=== PATIENT | male | born 1945 | race Caucasian/White ===

== ENCOUNTER 2023-06-02 12:56 | Emergency (ER) | payer OTHER ==
[2023-06-02 13:03] VITALS: TEMP 97.6
[2023-06-02] MEDS ORDERED: Sodium Chloride 0.9% 1000 ML 1,000 ML ONE (13:11)
[2023-06-02] MEDS ORDERED: Sodium Chloride 0.9% 1000 ML 1,000 ML IV SCH (13:15)
[2023-06-02 13:50] LABS: Hematocrit 20.9 % (42-50); Hemoglobin 7.1 g/dL (12.5-18.0); Mean Cell Volume 126.7 fL (78-100); Mean Platelet Volume 9.5 fL (7.5-11.0); Platelet Count 313 x10^3/uL (150-450); Red Blood Count 1.65 x10^6/uL (4.1-5.6); White Blood Count 2.5 x10^3/uL (4.0-10.5)
--- NOTE | 2023-06-02 13:51 | ERPHSYRPT ---
- History of Present Illness Time Seen by Provider: 06/02/23 13:47 Source: patient Exam Limitations: no limitations Patient Subjective Stated Complaint: pt here weakness for about 3 weeks now, pt has a blood transfusion a week ago Triage Nursing Assessment: pt arrived per ambulance, alert, poor historian, yuhaaviatam, resp easy, skin w/d/p. left side weak from old stroke, has swelling to feet that is normal for him Physician History: Patient is 78-year-old male presents to our ED via EMS for evaluation of generalized weakness. Patient has been experiencing progressive weakness for the past 3 weeks. EMS reports that patient had a blood transfusion last week. However patient is a poor historian unable to elaborate regarding why he had a transfusion. We have no records of any previous visits to our hospital. However [facility] report [facility] Patient denies pain. No trauma no fever. No nausea vomiting or diaphoresis. No obvious dark stools. Patient lives with his . Patient's is currently not present help contribute to the HPI. Patient voices no other complaints or concerns at this time. Portions of this note were created with voice recognition technology. There may be grammatical, spelling, punctuation or sound alike errors Timing/Duration: week(s) Severity: moderate (2 to 3 weeks) Modifying Factors: Improves With: nothing Associated Symptoms: denies symptoms Allergies/Adverse Reactions: Beta-Blockers (Beta-Adrenergic Bloc Adverse Reaction (Verified 06/02/23 13:00) Home Medications: Unobtainable 06/02/23 [History] Hx Influenza Vaccination/Date Given: No Hx Pneumococcal Vaccination/Date Given: No Immunizations Up to Date: Yes Travel Risk - International Travel Have you traveled outside of the country in past 3 weeks: No - Coronavirus Screening Are you exhibiting any of the following symptoms?: No Close contact with a COVID-19 positive Pt in past 14-21 Days: No - Vaccine Status Have you recieved a Covid-19 vaccination: Yes [employer]: Moderna - Vaccination Dates Date of 2cond Vaccination (if applicable): 2020 - Review of Systems Constitutional: No Symptoms, No Fever, No Chills Eyes: No Symptoms Ears, Nose, & Throat: No Symptoms Respiratory: No Symptoms, No Cough, No Dyspnea Cardiac: No Symptoms, No Chest Pain, No Edema, No Syncope Abdominal/Gastrointestinal: No Symptoms, No Abdominal Pain, No Nausea, No Vomiting, No Diarrhea Genitourinary Symptoms: No Symptoms, No Dysuria Musculoskeletal: No Symptoms, No Back Pain, No Neck Pain Skin: No Symptoms, No Rash Neurological: No Symptoms, No Dizziness, No Focal Weakness, No Sensory Changes Psychological: No Symptoms Endocrine: No Symptoms Hematologic/Lymphatic: No Symptoms Immunological/Allergic: No Symptoms All Other Systems: Reviewed and Negative - Past Medical History Pertinent Past Medical History: Yes Neurological History: Stroke Cardiac History: High Cholesterol, Hypertension Endocrine Medical History: Diabetes Type II Other Medical History: blood disorder ,anemia,yuhaaviatam - Past Surgical History Past Surgical History: Yes - Social History Smoking Status: Former smoker Exposure to second hand smoke: No Drug Use: none Patient Lives Alone: No - Nursing Vital Signs Nursing Vital Signs: Initial Vital Signs Pulse Rate 84 06/02/23 13:00 Respiratory Rate 14 06/02/23 13:00 Blood Pressure 163/66 06/02/23 13:00 O2 Sat by Pulse Oximetry 97 06/02/23 13:00 Pain Scale Pain Intensity 0 - Physical Exam General Appearance: no apparent distress, alert Eye Exam: PERRL/EOMI, eyes nml inspection Ears, Nose, Throat Exam: normal ENT inspection, TMs normal, pharynx normal, moist mucous membranes Neck Exam: normal inspection, non-tender, supple, full range of motion Respiratory Exam: normal breath sounds, lungs clear, airway intact, No respiratory distress Cardiovascular Exam: regular rate/rhythm, normal heart sounds, normal peripheral pulses Gastrointestinal/Abdomen Exam: soft, normal bowel sounds, No tenderness, No mass Back Exam: normal inspection, normal range of motion, No CVA tenderness, No vertebral tenderness Extremity Exam: normal inspection, normal range of motion, pelvis stable Neurologic Exam: alert, oriented x 3, cooperative, normal mood/affect, nml cerebellar function, nml station & gait, sensation nml, No motor deficits Skin Exam: normal color, warm, dry, No rash Lymphatic Exam: No adenopathy SpO2 Interpretation: normal SpO2: 97 O2 Delivery: Room Air - Course Nursing assessment & vital signs reviewed: Yes EKG Interpreted by Me: RATE (86), Sinus Rhythm, 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) Ordered Tests: Active Orders 24 hr Category Date Time Status Care Program Resident STAT Care 06/02/23 13:03 Active EKG-ER Only STAT Care 06/02/23 13:01 Active IV Insertion STAT Care 06/02/23 13:01 Active Pulse Oximetry (ED) STAT Care 06/02/23 13:01 Active CBC W DIFF Stat Lab 06/02/23 13:01 Completed CMP Stat Lab 06/02/23 13:01 Completed Lactic Acid Stat Lab 06/02/23 13:17 Completed MAGNESIUM Stat Lab 06/02/23 13:01 Completed Manual Differential NC Stat Lab 06/02/23 13:01 Completed NT PRO BNPII Stat Lab 06/02/23 Completed TROPONIN Q4H Lab 06/02/23 13:15 Completed TROPONIN Q4H Lab 06/02/23 17:10 Completed TROPONIN Q4H Lab 06/02/23 21:15 Ordered UA W/RFX UR CULTURE Stat Lab 06/02/23 15:52 Completed Medication Summary Generic Name Dose Route Start Last Admin Trade Name Freq PRN Reason Stop Dose Admin Sodium Chloride 1,000 mls @ 100 mls/hr 06/02/23 13:15 06/02/23 13:13 Sodium Chloride 0.9% 1000 Ml IV 07/02/23 13:14 100 mls/hr .Q10H VIOLA Administration Lab/Rad Data: Laboratory Result Diagrams 06/02/23 13:01 06/02/23 13:01 Laboratory Results 06/02/23 06/02/23 06/02/23 Range/Units Unknown 17:43 17:10 WBC (4.0-10.5) x10^3/uL RBC (4.1-5.6) x10^6/uL Hgb (12.5-18.0) g/dL Hct (42-50) % MCV (78-100) fL MCH (26-32) pg MCHC (32-36) g/dL RDW (11.5-14.0) % Plt Count (150-450) x10^3/uL MPV (7.5-11.0) fL Segmented Neutrophils (36.-66.) % Lymphocytes (Manual) (24-44) % Monocytes (Manual) (0.0-12.0) % Eosinophils (Manual) (0.00-3.0) % Hypochromia Platelet Estimate (NORMAL) RBC Morphology Anisocytosis Sodium (137-145) mmol/L Potassium (3.5-5.1) mmol/L Chloride (98-107) mmol/L Carbon Dioxide (22-30) mmol/L Anion Gap (5-15) MEQ/L BUN (9-20) mg/dL Creatinine (0.66-1.25) mg/dL Estimated GFR ML/MIN Glucose (74-106) mg/dL Lactic Acid (0.4-2.0) Calcium (8.4-10.2) mg/dL Magnesium (1.6-2.3) mg/dL Total Bilirubin (0.2-1.3) mg/dL AST (17-59) U/L ALT (0-50) U/L Alkaline Phosphatase (38-126) U/L Troponin I < 0.012 (0.000-0.034) ng/mL NT-Pro-B Natriuret Pep 85.6 (<300) pg/mL Serum Total Protein (6.3-8.2) g/dL Albumin (3.5-5.0) g/dL Urine Color (Yellow) Urine Appearance (Clear) Urine pH (4.6-8.0) Ur Specific [place] (1.005-1.030) Urine Protein (Negative) Urine Glucose (UA) (Negative) mg/dL Urine Ketones (Negative) Urine Blood (Negative) Urine Nitrite (Negative) Urine Bilirubin (Negative) Urine Urobilinogen (0.2) mg/dL Ur Leukocyte Esterase (Negative) U Hyaline Cast (Auto) (0-2) /LPF Urine Microscopic RBC (0-5) /HPF Urine Microscopic WBC (0-5) /HPF Ur Epithelial Cells (None Seen) /HPF Urine Bacteria (None Seen) /HPF Urine Culture Reflexed (NO) Influenza Type A Ag NEGATIVE (NEGATIVE) Influenza Type B Ag NEGATIVE (NEGATIVE) RSV (PCR) NEGATIVE (NEGATIVE) SARS-CoV-2 (PCR) NEGATIVE (NEGATIVE) ABO Group Rh Factor Antibody Screen (NEGATIVE) Crossmatch (COMPATIBLE) 06/02/23 06/02/23 06/02/23 Range/Units 17:08 17:02 15:52 WBC (4.0-10.5) x10^3/uL RBC (4.1-5.6) x10^6/uL Hgb (12.5-18.0) g/dL Hct (42-50) % MCV (78-100) fL MCH (26-32) pg MCHC (32-36) g/dL RDW (11.5-14.0) % Plt Count (150-450) x10^3/uL MPV (7.5-11.0) fL Segmented Neutrophils (36.-66.) % Lymphocytes (Manual) (24-44) % Monocytes (Manual) (0.0-12.0) % Eosinophils (Manual) (0.00-3.0) % Hypochromia Platelet Estimate (NORMAL) RBC Morphology Anisocytosis Sodium (137-145) mmol/L Potassium (3.5-5.1) mmol/L Chloride (98-107) mmol/L Carbon Dioxide (22-30) mmol/L Anion Gap (5-15) MEQ/L BUN (9-20) mg/dL Creatinine (0.66-1.25) mg/dL Estimated GFR ML/MIN Glucose (74-106) mg/dL Lactic Acid (0.4-2.0) Calcium (8.4-10.2) mg/dL Magnesium (1.6-2.3) mg/dL Total Bilirubin (0.2-1.3) mg/dL AST (17-59) U/L ALT (0-50) U/L Alkaline Phosphatase (38-126) U/L Troponin I (0.000-0.034) ng/mL NT-Pro-B Natriuret Pep (<300) pg/mL Serum Total Protein (6.3-8.2) g/dL Albumin (3.5-5.0) g/dL Urine Color Yellow (Yellow) Urine Appearance Clear (Clear) Urine pH 5.5 (4.6-8.0) Ur Specific [place] <=1.005 (1.005-1.030) Urine Protein Negative (Negative) Urine Glucose (UA) Negative (Negative) mg/dL Urine Ketones Negative (Negative) Urine Blood Negative (Negative) Urine Nitrite Negative (Negative) Urine Bilirubin Negative (Negative) Urine Urobilinogen 0.2 (0.2) mg/dL Ur Leukocyte Esterase Negative (Negative) U Hyaline Cast (Auto) NONE SEEN (0-2) /LPF Urine Microscopic RBC 0-2 (0-5) /HPF Urine Microscopic WBC 0-2 (0-5) /HPF Ur Epithelial Cells None Seen (None Seen) /HPF Urine Bacteria None Seen (None Seen) /HPF Urine Culture Reflexed NO (NO) Influenza Type A Ag (NEGATIVE) Influenza Type B Ag (NEGATIVE) RSV (PCR) (NEGATIVE) SARS-CoV-2 (PCR) (NEGATIVE) ABO Group O Rh Factor POSITIVE Antibody Screen NEGATIVE (NEGATIVE) Crossmatch COMPATIBLE COMPATIBLE (COMPATIBLE) 06/02/23 06/02/23 06/02/23 Range/Units 13:17 13:15 13:01 WBC (4.0-10.5) x10^3/uL RBC (4.1-5.6) x10^6/uL Hgb (12.5-18.0) g/dL Hct (42-50) % MCV (78-100) fL MCH (26-32) pg MCHC (32-36) g/dL RDW (11.5-14.0) % Plt Count (150-450) x10^3/uL MPV (7.5-11.0) fL Segmented Neutrophils (36.-66.) % Lymphocytes (Manual) (24-44) % Monocytes (Manual) (0.0-12.0) % Eosinophils (Manual) (0.00-3.0) % Hypochromia Platelet Estimate (NORMAL) RBC Morphology Anisocytosis Sodium 130 L (137-145) mmol/L Potassium 3.8 (3.5-5.1) mmol/L Chloride 96 L (98-107) mmol/L Carbon Dioxide 23 (22-30) mmol/L Anion Gap 14.7 (5-15) MEQ/L BUN 25 H (9-20) mg/dL Creatinine 1.47 H (0.66-1.25) mg/dL Estimated GFR 49.2 ML/MIN Glucose 87 (74-106) mg/dL Lactic Acid 1.2 (0.4-2.0) Calcium 9.3 (8.4-10.2) mg/dL Magnesium 1.7 (1.6-2.3) mg/dL Total Bilirubin 0.40 (0.2-1.3) mg/dL AST 52 (17-59) U/L ALT 24 (0-50) U/L Alkaline Phosphatase 59 (38-126) U/L Troponin I < 0.012 (0.000-0.034) ng/mL NT-Pro-B Natriuret Pep (<300) pg/mL Serum Total Protein 7.7 (6.3-8.2) g/dL Albumin 3.8 (3.5-5.0) g/dL Urine Color (Yellow) Urine Appearance (Clear) Urine pH (4.6-8.0) Ur Specific [place] (1.005-1.030) Urine Protein (Negative) Urine Glucose (UA) (Negative) mg/dL Urine Ketones (Negative) Urine Blood (Negative) Urine Nitrite (Negative) Urine Bilirubin (Negative) Urine Urobilinogen (0.2) mg/dL Ur Leukocyte Esterase (Negative) U Hyaline Cast (Auto) (0-2) /LPF Urine Microscopic RBC (0-5) /HPF Urine Microscopic WBC (0-5) /HPF Ur Epithelial Cells (None Seen) /HPF Urine Bacteria (None Seen) /HPF Urine Culture Reflexed (NO) Influenza Type A Ag (NEGATIVE) Influenza Type B Ag (NEGATIVE) RSV (PCR) (NEGATIVE) SARS-CoV-2 (PCR) (NEGATIVE) ABO Group Rh Factor Antibody Screen (NEGATIVE) Crossmatch (COMPATIBLE) 06/02/23 Range/Units 13:01 WBC 2.5 L (4.0-10.5) x10^3/uL RBC 1.65 L (4.1-5.6) x10^6/uL Hgb 7.1 L (12.5-18.0) g/dL Hct 20.9 L (42-50) % MCV 126.7 H (78-100) fL MCH 43.0 H (26-32) pg MCHC 34.0 (32-36) g/dL RDW 23.0 H (11.5-14.0) % Plt Count 313 (150-450) x10^3/uL MPV 9.5 (7.5-11.0) fL Segmented Neutrophils 57 (36.-66.) % Lymphocytes (Manual) 37 (24-44) % Monocytes (Manual) 3 (0.0-12.0) % Eosinophils (Manual) 3 (0.00-3.0) % Hypochromia 2+ Platelet Estimate NORMAL (NORMAL) RBC Morphology ABNORMAL Anisocytosis 2+ Sodium (137-145) mmol/L Potassium (3.5-5.1) mmol/L Chloride (98-107) mmol/L Carbon Dioxide (22-30) mmol/L Anion Gap (5-15) MEQ/L BUN (9-20) mg/dL Creatinine (0.66-1.25) mg/dL Estimated GFR ML/MIN Glucose (74-106) mg/dL Lactic Acid (0.4-2.0) Calcium (8.4-10.2) mg/dL Magnesium (1.6-2.3) mg/dL Total Bilirubin (0.2-1.3) mg/dL AST (17-59) U/L ALT (0-50) U/L Alkaline Phosphatase (38-126) U/L Troponin I (0.000-0.034) ng/mL NT-Pro-B Natriuret Pep (<300) pg/mL Serum Total Protein (6.3-8.2) g/dL Albumin (3.5-5.0) g/dL Urine Color (Yellow) Urine Appearance (Clear) Urine pH (4.6-8.0) Ur Specific [place] (1.005-1.030) Urine Protein (Negative) Urine Glucose (UA) (Negative) mg/dL Urine Ketones (Negative) Urine Blood (Negative) Urine Nitrite (Negative) Urine Bilirubin (Negative) Urine Urobilinogen (0.2) mg/dL Ur Leukocyte Esterase (Negative) U Hyaline Cast (Auto) (0-2) /LPF Urine Microscopic RBC (0-5) /HPF Urine Microscopic WBC (0-5) /HPF Ur Epithelial Cells (None Seen) /HPF Urine Bacteria (None Seen) /HPF Urine Culture Reflexed (NO) Influenza Type A Ag (NEGATIVE) Influenza Type B Ag (NEGATIVE) RSV (PCR) (NEGATIVE) SARS-CoV-2 (PCR) (NEGATIVE) ABO Group Rh Factor Antibody Screen (NEGATIVE) Crossmatch (COMPATIBLE) - Progress Progress: improved Progress Note: 06/02/23 18:[address] Deluca accepting physician at [facility] patient accepted at 1836 PM 70-year-old male presents to our ED via EMS for evaluation of progressive weakness. Work-up reveals a significant anemia with hyponatremia. Patient denies pain. Physical exam otherwise negative. Testing ordered includes CBC CMP. CBC reveals a macrocytic anemia. CMP reveals hyponatremia and acute renal injury. Patient has chronic renal sufficiency however creatinine is higher than his baseline. COVID-negative. Blood cultures drawn and pending. Troponin negative. Urinalysis negative. Complexity of problems addressed is moderate acute complicated No critical care time Complex of data reviewed and analyzed is extensive Dr. Quintana independently reviewed and analyzed laboratory studies. Clinical correlation made between findings and history and physical exam. Plan of care discussed with accepting physician at [facility]. Risk of complication and or risk of morbidity/mortality of patient management is high. Patient requires higher level of care. Patient will be transferred to the [facility] as he is a [facility] patient. Plan of care discussed with patient. [facility] and treatment. Plan of care established for shared decision making. Portions of this note were created with voice recognition technology. There may be grammatical, spelling, punctuation or sound alike errors 06/02/23 20:59 06/02/23 21:00 Counseled pt/family regarding: lab results, diagnosis - Departure Departure Disposition: Observation Clinical Impression: Leukopenia, Macrocytic anemia, Hyponatremia, Acute renal injury, Generalized weakness, Pale skin Condition: Stable Critical Care Time: No Referrals: RICARDO BELTRAN [NON-STAFF Y W/O PRIVILEGES] - Follow up/PCP as directed Additional Instructions: Discharge/Care Plan CARMEN ROLDAN was seen on 06/02/23 in the Emergency Room. The patient was counseled regarding Diagnosis,Lab results, Imaging studies, need for follow up and when to return to the Emergency Room. Prescriptions given: Discharge Note I have spoken with the patient and/or caregivers. I have explained the patient's condition, diagnosis and treatment plan based on the information available to me at this time. I have answered the patient's and/or caregiver's questions and addressed any concerns. The patient and/or caregivers have as good understanding of the patient's diagnosis, condition and treatment plan as can be expected at this point. The vital signs have been stable. The patient's condition is stable and appropriate for discharge from the emergency department. The patient will pursue further outpatient evaluation with the primary care physician or other designated or consulting physician as outlined in the disch arge instructions. The patient and/or caregivers are agreeable to this plan of care and follow-up instructions have been explained in detail. The patient and/or caregivers have received these instruction. The patient/and or caregivers are aware that any significant change in condition or worsening of symptoms should prompt an immediate return to this or the closest emergency department or call 911.
[2023-06-02 13:55] LABS: ALBUMIN 3.8 g/dL (3.5-5.0); ANION GAP 14.7 MEQ/L (5-15); BILIRUBIN,TOTAL 0.4 mg/dL (0.2-1.3); Calcium 9.3 mg/dL (8.4-10.2); Creatinine 1 1.47 mg/dL (0.66-1.25); EST GLOMERULAR FILTRATION RATE 49.2 ML/MIN; MAGNESIUM 1.7 mg/dL (1.6-2.3); Potassium 3.8 mmol/L (3.5-5.1); Total Protein 7.7 g/dL (6.3-8.2)
[2023-06-02 14:34] LABS: Eosinophil 3 % (0.00-3.0); Lymphocytes 37 % (24-44); Monocyte 3 % (0.0-12.0); Neutrophils 57 % (36.-66.); Total Cells Counted 100
[2023-06-02 14:35] LABS: ANISOCYTOSIS 2+; Hypochromia 2+; Platelet Estimate NORMAL (NORMAL)
[2023-06-02 16:16] LABS: Appearance Clear (Clear); Bacteria None Seen /HPF (None Seen); Bilirubin Negative (Negative); Blood Negative (Negative); Epithelial Cells None Seen /HPF (None Seen); Glucose, Urine Negative (Negative); Hyaline Casts NONE SEEN /LPF (0-2); Ketones Negative (Negative); Leukocyte Esterase Negative (Negative); Nitrite Negative (Negative); Ph 5.5 (4.6-8.0); Protein,Urine Dip Negative (Negative); RBC 0-2 /HPF (0-5); Specific Gravity <=1.005 (1.005-1.030); Urobilinogen 0.2 mg/dL (0.2); WBC 0-2 /HPF (0-5)
[2023-06-02 16:17] LABS: ADD URINE CULTURE? NO (NO)
[2023-06-02 18:25] LABS: INFLUENZA A NEGATIVE (NEGATIVE); INFLUENZA B NEGATIVE (NEGATIVE); RESPIRATORY SYNCTIAL VIRUS NEGATIVE (NEGATIVE); SARS-CoV-2 Xpert Express NEGATIVE (NEGATIVE)
[2023-06-02 18:56] LABS: ABO TYPING O; Antibody Screen NEGATIVE (NEGATIVE); RH TYPING POSITIVE
[2023-06-02 18:57] LABS: CROSS MATCH (PRBC) COMPATIBLE (COMPATIBLE)
[2023-06-02 19:09] VITALS: BP 183/84; PULSE 99; RESP 20
[2023-06-02 21:05] VITALS: O2SAT 97
== END 2023-06-02 21:18 | disposition short-term general hospital (02) ==
LOC: ED 12:56
DX: D72.819 Decreased white blood cell count, unspecified (principal); D53.9 Nutritional anemia, unspecified; E87.1 Hypo-osmolality and hyponatremia; N17.9 Acute kidney failure, unspecified; R53.1 Weakness; R23.1 Pallor; E78.5 Hyperlipidemia, unspecified; I10 Essential (primary) hypertension; E11.9 Type 2 diabetes mellitus without complications
CPT/HCPCS: 0241U; 36415; 80053; 81001; 83605; 83735; 83880; 84484; 85025; 86850; 86900; 86901; 86922; 93005; 93041; 94760; 99284

== ENCOUNTER 2024-03-28 10:43 | Day surgery (SDC) | payer OTHER ==
--- NOTE | 2024-03-28 08:41 | HP ---
DATE OF SURGERY: 03/28/2024 HISTORY OF PRESENT ILLNESS: The patient is a 78-year-old had abnormal thickened esophagus on CT scan. He denies any reflux. No recent upper endoscopy. PAST MEDICAL HISTORY: Hypertension, glaucoma, constipation, diabetes type II, anemia, PAST SURGICAL HISTORY: MEDICATIONS: Timolol, MiraLAX, metformin, hydroxyurea, glipizide, gabapentin, folic acid. ALLERGIES: BETA-BLOCKERS. FAMILY HISTORY: Heart disease. SOCIAL HISTORY: No smoking or alcohol abuse. REVIEW OF SYSTEMS: Twelve systems reviewed. No chest pain or palpitations. Other systems negative or noncontributory as above and per preadmission questionnaire. PHYSICAL EXAMINATION: Height 6 feet. BMI 29.87. GENERAL: No acute distress. HEENT: Sclerae nonicteric. EOMI. Oral mucous membranes moist. NECK: No JVD. CHEST: Equal excursion, nonlabored breathing. CVS: Regular rate and rhythm. ABDOMEN: Soft. No peritoneal signs. EXTREMITIES: No significant edema. NEURO: Alert. He did show up in a motorized wheelchair. PSYCH: Appropriate mood and affect. SKIN: Dry. IMPRESSION: Abnormal imaging of esophagus on CT, I feel it is thickening. I feel the patient is in need of EGD possible biopsy. Risks and benefits explained in detail but not limited to. Risk of bleeding or infection, risk of bowel injury or perforation possibly requiring further procedure, risk of missed or nondiagnosis or incomplete exam, possibly requiring barium swallow, other studies or procedures. General risk of anesthesia or sedation, risk of bowel prep but not limited to. Will proceed with EGD possible biopsy as an outpatient under MAC anesthesia. Otherwise, continue medications for anemia, hypertension and diabetes. EGD possible biopsy as an outpatient.
[2024-03-28] MEDS: Lactated Ringers 1,000 ML IV SCH (11:16)
[2024-03-28 11:33] VITALS: RESP 18
[2024-03-28 11:33] LABS: ANION GAP 13.3 MEQ/L (5-15); Calcium 9.6 mg/dL (8.4-10.2); Creatinine 1 1.27 mg/dL (0.66-1.25); EST GLOMERULAR FILTRATION RATE 57.8 ML/MIN
[2024-03-28 11:38] LABS: Potassium 5.4 mmol/L (3.5-5.1)
[2024-03-28] MEDS ORDERED: DIPRIVAN 200 MG/20 ML IV ONE (12:13)
[2024-03-28 13:15] VITALS: BP 157/77; PULSE 95; TEMP 96.8; O2SAT 94
--- NOTE | 2024-03-29 08:06 | OP ---
SURGERY DATE/TIME: 03/28/2024 1215 PREOPERATIVE DIAGNOSIS: History of abnormal thickening of esophagus on CT scan. POSTOPERATIVE DIAGNOSES: 1) Minimal inflammation versus normal variation distal esophagus otherwise fairly normal esophageal mucosa. 2) Erosive gastritis. PROCEDURES: 1) EGD with cold biopsy of the antrum for Helicobacter pylori. 2) Cold biopsy of gastric body to evaluate for inflammation. 3) Cold biopsy distal esophagus to evaluate for some minimal versus early inflammation. 4) Cold biopsy random mid esophagus to evaluate for histology. SURGEON: Dr. Gamaliel Trejo M.D. ANESTHESIA: MAC. QUANTITATIVE BLOOD LOSS: Minimal. INDICATIONS: As noted above, consent was obtained. DESCRIPTION OF PROCEDURE AND FINDINGS: The patient is taken to the endoscopy room. MAC anesthesia introduced. After official time out and no disagreement with planned procedure, a bite block positioned. Video gastroscope easily passed down the esophagus through the patent pylorus to the junction of the second and third portion of the duodenum. Third, second and first portion of the duodenum all unremarkable. Back in the stomach, he did have some erosive gastritis and some little petechial hemorrhages. There were no signs of anything to call an ulcer but cold biopsy taken to evaluate for Helicobacter pylori. Good hemostasis noted. There was a little bit of inflammation extending up in the gastric body, some random cold biopsies of gastric body were also taken to evaluate for histology to rule out other causes. On retroflex, there were no signs of any large hiatal hernia. The scope is straightened. Gastroesophageal junction is about 43 cm. There may be some minimal early inflammation versus normal variation. Cold biopsy is taken of the distal esophagus to evaluate for histology. The mucosa otherwise overall was fairly normal appearing at the esophagus. Did do cold biopsy of what was felt to be probably normal variation the gastric side of the gastroesophageal junction, and also sent a biopsy in that area. Good hemostasis noted. The scope is pulled up in mid esophagus. The mucosa looked fairly normal. Random cold biopsy is taken to evaluate for histology given his CT findings. Otherwise, overall he had some tertiary contractions of the esophagus. The esophagus mucosa itself overall was fairly unremarkable. No signs of any large masses or obstructing lesions. The scope is withdrawn. The patient tolerated the procedure well.
== END 2024-03-28 13:20 | disposition home or self-care (01) ==
LOC: SDC 10:43
PROVIDERS: ATTEND Surgery
DX: K29.70 Gastritis, unspecified, without bleeding (principal); K22.89 Other specified disease of esophagus; I10 Essential (primary) hypertension; E11.9 Type 2 diabetes mellitus without complications
CPT/HCPCS: 36415; 80048; 83036; 93005; 99100; J2704

== ENCOUNTER 2024-05-24 12:36 | Emergency (ER) | payer OTHER ==
[2024-05-24 12:54] VITALS: TEMP 97.6
[2024-05-24] MEDS ORDERED: Vibramycin 100 MG ONE (13:19)
[2024-05-24] MEDS ORDERED: TYLENOL 325 MG ONE (13:19)
[2024-05-24] MEDS: TYLENOL 325 MG PO ONE (13:23)
[2024-05-24] MEDS: Vibramycin 100 MG PO ONE (13:23)
--- NOTE | 2024-05-24 14:26 | XRAY ---
Indication: Pain. Comparison: None 3 nonweightbearing views right foot demonstrates marked osteopenia, moderate 1st metatarsal MTP degenerative changes, small plantar heel spur, and extensive scattered vascular calcifications. No other bony, articular, or soft tissue abnormalities.
[2024-05-24 14:41] LABS: Absolute Neutrophil Ct (ANC) 5.41 x10^3/uL (1.78-5.38); BASOPHIL % 0.7 % (0.2-1.2); Basophil (Absolute #) 0.05 x10^3/uL (0.01-0.08); Eosinophil % 2.9 % (0.8-7.0); Hematocrit 26.6 % (40.1-51.0); Hemoglobin 8.7 g/dL (13.7-17.5); IMMATURE GRAN # 0.08 x10^3u/L (0.001-0.031); IMMATURE GRAN % 1.2 % (0.001-0.429); Lymphocyte (Absolute #) 0.63 x10^3/uL (1.32-3.57); Lymphocytes % 9.3 % (21.8-53.1); Mean Cell Volume 124.3 fL (79.0-92.2); Mean Corpuscular Hemoglobin 40.7 pg (25.7-32.2); Mean Corpuscular Hgb Concent. 32.7 g/dL (32.3-36.5); Mean Platelet Volume 9.5 fL (9.4-12.4); Monocyte (Absolute #) 0.43 x10^3/uL (0.30-0.82); Monocytes % 6.3 % (5.3-12.2); Neutrophil % 79.6 % (34.0-67.9); Platelet Count 771 x10^3/uL (163-337); Red Blood Count 2.14 x10^6/uL (4.63-6.08); Red Cell Distribution Width 14.3 % (11.6-14.4); White Blood Count 6.8 x10^3/uL (4.23-9.07)
[2024-05-24 14:48] LABS: Appearance Clear (Clear); Bilirubin Negative (Negative); Blood Negative (Negative); Glucose, Urine Negative (Negative); Ketones Negative (Negative); Leukocyte Esterase Negative (Negative); Nitrite Negative (Negative); Protein,Urine Dip Negative (Negative); Urobilinogen 0.2 mg/dL (0.2)
[2024-05-24 14:51] LABS: ADD URINE CULTURE? NO (NO); Bacteria None Seen /HPF (None Seen); Epithelial Cells None Seen /HPF (None Seen); RBC 0-2 /HPF (0-5); WBC 0-2 /HPF (0-5)
[2024-05-24 14:56] LABS: ALBUMIN 4.2 g/dL (3.5-5.0); ANION GAP 16.5 MEQ/L (5-15); BILIRUBIN,TOTAL 0.5 mg/dL (0.2-1.3); Calcium 9.5 mg/dL (8.4-10.2); Creatinine 1 1.02 mg/dL (0.66-1.25); EST GLOMERULAR FILTRATION RATE 74.8 ML/MIN; Potassium 4.8 mmol/L (3.5-5.1)
--- NOTE | 2024-05-24 15:10 | XRAY ---
Indication: Short of breath. Comparison: None Portable chest demonstrates cardiomegaly, mild diffuse pulmonary edema, and small left effusion favoring cardiac decompensation/CHF. Superimposed pneumonia not completely excluded. CT proven large chunky distal right paratracheal calcified nodes. Bony thorax intact with osteopenia and degenerative changes.
--- NOTE | 2024-05-24 17:34 | ERPHSYRPT ---
- History of Present Illness Time Seen by Provider: 05/24/24 13:00 Source: patient Exam Limitations: no limitations Patient Subjective Stated Complaint: Pt states "I was in a hurry to go to the bathroom and hit three of my toes on my right foot and now there are wounds on them and my feet are all swollen but that has been going on for awhile." Triage Nursing Assessment: Pt presented alert and oriented X 3, skin pwd. Pt able to speak in clear full sentences. PT in power wheel chair and advised he can barely use either leg. Pt right second, third, and fourth toe has wounds on and around it with sloughing skin. Pt feet and lower extremities has +2 pitting edema noted. Physician History: 79-year-old male presents to our ED for evaluation of pain to his right foot. Patient injured his right foot 3 days ago. Patient has a history of diabetes. No other injuries reported. However on physical exam patient was observed to have coarse breath sounds. Patient was hypoxic on room air. Patient normally does not require oxygen. Right foot pain described as an ache that is localized. No radiation. Pain worse with movement and palpation pain improved with rest. at bedside. They voiced no other complaints or concerns at this time. Portions of this note were created with voice recognition technology. There may be grammatical, spelling, punctuation or sound alike errors Timing/Duration: day(s) (3 days ago) Severity: moderate Modifying Factors: Improves With: nothing Associated Symptoms: denies symptoms Allergies/Adverse Reactions: Beta-Blockers (Beta-Adrenergic Bloc Adverse Reaction (Verified 03/04/24 10:21) Home Medications: Folic Acid 1 mg [Folate 1 mg] 1 mg PO UD 03/04/24 [History] Gabapentin [Neurontin ] 600 mg PO UD 03/04/24 [History] Glipizide 10 mg [Glucotrol 10 MG] 10 mg PO UD 03/04/24 [History] Hydroxyurea [Siklos] 1,000 mg PO UD 03/04/24 [History] Lisinopril/Hydrochlorothiazide [Lisinopril-Hctz 20-12.5 mg Tab] 1 tab PO UD 03/04/24 [History] Metformin HCl 500 mg [Glucophage 500 MG] 1,000 mg PO UD 03/04/24 [History] Polyethylene Glycol 3350 17 gm [Miralax Powder 17GM PACKET] 1 packet PO UD 03/04/24 [History] Tamsulosin HCl 0.4 mg [Flomax 0.4 MG] 1 cap PO UD 03/04/24 [History] Timolol Maleate 0.25% Eye [Timolol 0.25% Opth Nikkie 5 ML] 1 drop .ROUTE UD 03/04/24 [History] Hx Tetanus, Diphtheria Vaccination/Date Given: Yes Hx Influenza Vaccination/Date Given: Yes Hx Pneumococcal Vaccination/Date Given: Yes Immunizations Up to Date: No Travel Risk - International Travel Have you traveled outside of the country in past 3 weeks: No - Emerging Infectious Disease Are you exhibiting symptoms associated with any current EIDs: No - Review of Systems Constitutional: No Symptoms, No Fever, No Chills Eyes: No Symptoms Ears, Nose, & Throat: No Symptoms Respiratory: No Symptoms, No Cough, No Dyspnea Cardiac: No Symptoms, No Chest Pain, No Edema, No Syncope Abdominal/Gastrointestinal: No Symptoms, No Abdominal Pain, No Nausea, No Vomiting, No Diarrhea Genitourinary Symptoms: No Symptoms, No Dysuria Musculoskeletal: No Symptoms, No Back Pain, No Neck Pain Skin: No Symptoms, No Rash Neurological: No Symptoms, No Dizziness, No Focal Weakness, No Sensory Changes Psychological: No Symptoms Endocrine: No Symptoms Hematologic/Lymphatic: No Symptoms Immunological/Allergic: No Symptoms All Other Systems: Reviewed and Negative - Past Medical History Pertinent Past Medical History: Yes Neurological History: Stroke Cardiac History: High Cholesterol, Hypertension Endocrine Medical History: Diabetes Type II Other Medical History: blood disorder ,anemia,[place] - Past Surgical History Past Surgical History: No - Social History Smoking Status: Former smoker Exposure to second hand smoke: Yes Drug Use: none Patient Lives Alone: No - Social Determinants of Health Will the patient participate in the screening: Yes Do you worry about a steady place to live?: No Do you have any problems with any of the following?: No known problems In the past 12 months,have you had to go without utilities?: No Transportation Issues: No Has anyone in your support network made you feel unsafe?: No Have you or anyone in your house had to go without enough: No - Nursing Vital Signs Nursing Vital Signs: Initial Vital Signs Temperature 97.6 F 05/24/24 12:46 Pulse Rate 111 H 05/24/24 12:46 Respiratory Rate 18 05/24/24 12:46 Blood Pressure 191/86 05/24/24 12:46 O2 Sat by Pulse Oximetry 94 L 05/24/24 12:46 Pain Scale Pain Intensity 4 - Physical Exam General Appearance: no apparent distress, alert Eye Exam: PERRL/EOMI, eyes nml inspection Ears, Nose, Throat Exam: normal ENT inspection, TMs normal, pharynx normal, moist mucous membranes Neck Exam: normal inspection, non-tender, supple, full range of motion Respiratory Exam: normal breath sounds, diminished breath sounds, crackles/rales, No respiratory distress Cardiovascular Exam: regular rate/rhythm, normal heart sounds, normal peripheral pulses Gastrointestinal/Abdomen Exam: soft, No tenderness Extremity Exam: other (Bilateral lower extremity swelling. Right blow machine tender starch spraying at the dorsal aspect. The toes of the right foot has purulent drainage possible infection.) Skin Exam: normal color Lymphatic Exam: No adenopathy SpO2 Interpretation: normal SpO2: 97 O2 Delivery: Room Air - Course Nursing assessment & vital signs reviewed: Yes Ordered Tests: Active Orders 24 hr Category Date Time Status Payroll Accounting Specialist STAT Care 05/24/24 14:07 Active EKG-ER Only STAT Care 05/24/24 14:07 Active IV Insertion STAT Care 05/24/24 14:07 Active Pulse Oximetry (ED) STAT Care 05/24/24 14:07 Active CHEST 1 VIEW (PORTABLE) Stat Exams 05/24/24 14:07 Completed FOOT (MINIMUM 3 VIEWS) Stat Exams 05/24/24 13:14 Completed CBC W DIFF Stat Lab 05/24/24 14:30 Completed CMP Stat Lab 05/24/24 14:30 Completed NT PRO BNPII Stat Lab 05/24/24 14:30 Completed TROPONIN Q4H Lab 05/24/24 14:30 Completed TROPONIN Q4H Lab 05/24/24 18:25 Received TROPONIN Q4H Lab 05/24/24 22:15 Ordered UA W/RFX UR CULTURE Stat Lab 05/24/24 14:11 Completed Medication Summary Discontinued Medications Generic Name Dose Route Start Last Admin Trade Name Freq PRN Reason Stop Dose Admin Acetaminophen 975 mg 05/24/24 13:16 05/24/24 13:23 Acetaminophen 325 Mg Tablet PO 05/24/24 13:17 975 mg STAT ONE Administration Acetaminophen Confirm 05/24/24 13:19 Acetaminophen 325 Mg Tablet Administered 05/24/24 13:20 Dose 975 mg .ROUTE .STK-MED ONE Doxycycline Hyclate 100 mg 05/24/24 13:17 05/24/24 13:23 Doxycycline Hyclate 100 Mg Tablet PO 05/24/24 13:18 100 mg STAT ONE Administration Doxycycline Hyclate Confirm 05/24/24 13:19 Doxycycline Hyclate 100 Mg Tablet Administered 05/24/24 13:20 Dose 100 mg .ROUTE .STK-MED ONE Furosemide 40 mg 05/24/24 17:33 05/24/24 17:39 Furosemide 40 Mg/4 Ml Vial IV 05/24/24 17:34 40 mg STAT ONE Administration Furosemide Confirm 05/24/24 17:37 Furosemide 40 Mg/4 Ml Vial Administered 05/24/24 17:38 Dose 40 mg .ROUTE .STK-MED ONE Lab/Rad Data: Laboratory Result Diagrams 05/24/24 14:30 05/24/24 14:30 Laboratory Results 05/24/24 05/24/24 05/24/24 Range/Units 14:30 14:30 14:30 WBC 6.8 (4.23-9.07) x10^3/uL RBC 2.14 L (4.63-6.08) x10^6/uL Hgb 8.7 L (13.7-17.5) g/dL Hct 26.6 L (40.1-51.0) % MCV 124.3 H (79.0-92.2) fL MCH 40.7 H (25.7-32.2) pg MCHC 32.7 (32.3-36.5) g/dL RDW 14.3 (11.6-14.4) % Plt Count 771 H (163-337) x10^3/uL MPV 9.5 (9.4-12.4) fL Gran % 79.6 H (34.0-67.9) % Immature Gran % (Auto) 1.2 H (0.001-0.429) % Nucleat RBC Rel Count 0.0 (0.00-0.2) % Eos # (Auto) 0.20 (0.04-0.54) x10^3/uL Immature Gran # (Auto) 0.08 H (0.001-0.031) x10^3u/L Absolute Lymphs (auto) 0.63 L (1.32-3.57) x10^3/uL Absolute Monos (auto) 0.43 (0.30-0.82) x10^3/uL Absolute Nucleated RBC 0.00 (0.00-0.012) x10^3u/L Lymphocytes % 9.3 L (21.8-53.1) % Monocytes % 6.3 (5.3-12.2) % Eosinophils % 2.9 (0.8-7.0) % Basophils % 0.7 (0.2-1.2) % Absolute Granulocytes 5.41 H (1.78-5.38) x10^3/uL Basophils # 0.05 (0.01-0.08) x10^3/uL Sodium 128 L (135-145) mmol/L Potassium 4.8 (3.5-5.1) mmol/L Chloride 95 L (98-107) mmol/L Carbon Dioxide 21 L (22-30) mmol/L Anion Gap 16.5 H (5-15) MEQ/L BUN 20 (9-20) mg/dL Creatinine 1.02 (0.66-1.25) mg/dL Estimated GFR 74.8 ML/MIN Glucose 121 H (74-106) mg/dL Calcium 9.5 (8.4-10.2) mg/dL Total Bilirubin 0.50 (0.2-1.3) mg/dL AST 27 (17-59) U/L ALT 15 (0-50) U/L Alkaline Phosphatase 80 (38-126) U/L Troponin I 0.013 (0.000-0.033) ng/mL NT-Pro-B Natriuret Pep 177 (<300) pg/mL Serum Total Protein 8.0 (6.3-8.2) g/dL Albumin 4.2 (3.5-5.0) g/dL Urine Color (Yellow) Urine Appearance (Clear) Urine pH (4.6-8.0) Ur Specific [place] (1.005-1.030) Urine Protein (Negative) Urine Glucose (UA) (Negative) mg/dL Urine Ketones (Negative) Urine Blood (Negative) Urine Nitrite (Negative) Urine Bilirubin (Negative) Urine Urobilinogen (0.2) mg/dL Ur Leukocyte Esterase (Negative) Urine Microscopic RBC (0-5) /HPF Urine Microscopic WBC (0-5) /HPF Ur Epithelial Cells (None Seen) /HPF Urine Bacteria (None Seen) /HPF Urine Culture Reflexed (NO) 05/24/24 Range/Units 14:11 WBC (4.23-9.07) x10^3/uL RBC (4.63-6.08) x10^6/uL Hgb (13.7-17.5) g/dL Hct (40.1-51.0) % MCV (79.0-92.2) fL MCH (25.7-32.2) pg MCHC (32.3-36.5) g/dL RDW (11.6-14.4) % Plt Count (163-337) x10^3/uL MPV (9.4-12.4) fL Gran % (34.0-67.9) % Immature Gran % (Auto) (0.001-0.429) % Nucleat RBC Rel Count (0.00-0.2) % Eos # (Auto) (0.04-0.54) x10^3/uL Immature Gran # (Auto) (0.001-0.031) x10^3u/L Absolute Lymphs (auto) (1.32-3.57) x10^3/uL Absolute Monos (auto) (0.30-0.82) x10^3/uL Absolute Nucleated RBC (0.00-0.012) x10^3u/L Lymphocytes % (21.8-53.1) % Monocytes % (5.3-12.2) % Eosinophils % (0.8-7.0) % Basophils % (0.2-1.2) % Absolute Granulocytes (1.78-5.38) x10^3/uL Basophils # (0.01-0.08) x10^3/uL Sodium (135-145) mmol/L Potassium (3.5-5.1) mmol/L Chloride (98-107) mmol/L Carbon Dioxide (22-30) mmol/L Anion Gap (5-15) MEQ/L BUN (9-20) mg/dL Creatinine (0.66-1.25) mg/dL Estimated GFR ML/MIN Glucose (74-106) mg/dL Calcium (8.4-10.2) mg/dL Total Bilirubin (0.2-1.3) mg/dL AST (17-59) U/L ALT (0-50) U/L Alkaline Phosphatase (38-126) U/L Troponin I (0.000-0.033) ng/mL NT-Pro-B Natriuret Pep (<300) pg/mL Serum Total Protein (6.3-8.2) g/dL Albumin (3.5-5.0) g/dL Urine Color Yellow (Yellow) Urine Appearance Clear (Clear) Urine pH 7.0 (4.6-8.0) Ur Specific [place] 1.010 (1.005-1.030) Urine Protein Negative (Negative) Urine Glucose (UA) Negative (Negative) mg/dL Urine Ketones Negative (Negative) Urine Blood Negative (Negative) Urine Nitrite Negative (Negative) Urine Bilirubin Negative (Negative) Urine Urobilinogen 0.2 (0.2) mg/dL Ur Leukocyte Esterase Negative (Negative) Urine Microscopic RBC 0-2 (0-5) /HPF Urine Microscopic WBC 0-2 (0-5) /HPF Ur Epithelial Cells None Seen (None Seen) /HPF Urine Bacteria None Seen (None Seen) /HPF Urine Culture Reflexed NO (NO) - Progress Progress: improved Progress Note: 05/24/24 18:[address] Vogt from the [facility] at 6:30 PM. 79-year-old male presents to the emergency department for evaluation and treatment of right foot pain. Patient injured his foot 2 to 3 days ago. Pain did not improve. On physical exam patient has an infection at digits 3 and 4. Overlying soft tissue is draining purulent drainage. No lymphangitis. Infection appears to be localized. Patient received a dose of oral doxycycline for this infection. X-ray negative for fracture dislocation. However on physical exam patient was observed to have coarse breath sounds. He was hypoxic upon arriving to our ED. Patient placed on 2 L nasal cannula. Patient does not require oxygen supplementation normally. Physical exam also revealed bilateral lower extremity swelling. Chest x-ray shows some cardiomegaly with a left pleural effusion and pulmonary edema. Patient received a dose of Lasix. [facility] was contacted. Patient was accepted. Plan of care discussed with patient. He agrees to transfer to [facility] for further evaluation and treatment. \\ Portions of this note were created with voice recognition technology. There may be grammatical, spelling, punctuation or sound alike errors Complexity problem addressed is moderate acute complicated. No critical care time. Complex of data reviewed and analyzed is extensive. Test ordered test reviewed results analyzed and correlated clinically with history and physical exam. Risk of complication and or risk of morbidity/mortality patient management is high. Patient requires hospitalization. Because patient [facility] we are required to contact the [facility]. [facility] was contacted they accept transfer. Vital stable. Time spent to transfer patient is approximately 30 minutes. Plan of care established for shared decision making. No social determinants of health present impede follow-up. Portions of this note were created with voice recognition technology. There may be grammatical, spelling, punctuation or sound alike errors Counseled pt/family regarding: lab results, diagnosis, need for follow-up, rad results - Departure Departure Disposition: Home Clinical Impression: CHF (congestive heart failure), Hypoxia, Hyponatremia, Pleural effusion, left, Lower extremity pitting edema, Toe infection Condition: Stable Critical Care Time: No Referrals: CHRIS CASTELLANOS FNP [Primary Care Provider] - Follow up/PCP as directed Instructions: Heart Failure
[2024-05-24] MEDS ORDERED: Lasix 40 MG/4 ML ONE (17:37)
[2024-05-24] MEDS: Lasix 40 MG/4 ML IV ONE (17:39)
[2024-05-24 18:45] VITALS: O2SAT 97
[2024-05-24 21:14] VITALS: BP 142/62; PULSE 108; RESP 22
== END 2024-05-24 21:31 | disposition short-term general hospital (02) ==
LOC: ED 12:36
DX: I11.0 Hypertensive heart disease with heart failure (principal); I50.9 Heart failure, unspecified; R09.02 Hypoxemia; E87.1 Hypo-osmolality and hyponatremia; R60.0 Localized edema; S91.104A Unspecified open wound of right lesser toe(s) without damage to nail, initial encounter; L08.9 Local infection of the skin and subcutaneous tissue, unspecified; W22.03XA Walked into furniture, initial encounter; E78.5 Hyperlipidemia, unspecified; E11.9 Type 2 diabetes mellitus without complications; Z79.84 Long term (current) use of oral hypoglycemic drugs; Z79.899 Other long term (current) drug therapy
CPT/HCPCS: 36000; 36415; 71045; 73630; 80053; 81001; 83880; 84484; 85025; 93005; 93041; 94760; 96374; 99285; J1940; A9270-GY

== ENCOUNTER 2024-08-02 14:46 | Emergency (ER) | payer OTHER ==
--- NOTE | 2024-08-02 15:31 | ERPHSYRPT ---
- History of Present Illness Time Seen by Provider: 08/02/24 15:28 Source: patient Exam Limitations: no limitations Physician History: 79-year-old male with a history of diabetes presents to our ED as a referral from [facility] for evaluation of maggots in foot wound. Patient has been receiving home health wound care. She observed maggots in the wound and sent patient to our ED. However prior to patient arriving to our ED the maggots were cleaned off of the wound. Upon arrival additional maggots observed. Patient otherwise asymptomatic. Vitals are stable no fever. Patient denies pain. We attempted to contact our podiatry service. However our pcb design engineer is not available and will not be available for the following week. Patient is a [facility]. Will attempt to transfer patient to [facility] for podiatry service/further evaluation of the involved wound. Portions of this note were created with voice recognition technology. There may be grammatical, spelling, punctuation or sound alike errors Timing/Duration: today Severity: moderate Modifying Factors: Improves With: nothing Associated Symptoms: denies symptoms Allergies/Adverse Reactions: Beta-Blockers (Beta-Adrenergic Bloc Adverse Reaction (Verified 08/02/24 15:18) Home Medications: Folic Acid 1 mg [Folate 1 mg] 1 mg PO UD 03/04/24 [History] Gabapentin [Neurontin ] 600 mg PO UD 03/04/24 [History] Glipizide 10 mg [Glucotrol 10 MG] 10 mg PO UD 03/04/24 [History] Hydroxyurea [Siklos] 1,000 mg PO UD 03/04/24 [History] Lisinopril/Hydrochlorothiazide [Lisinopril-Hctz 20-12.5 mg Tab] 1 tab PO UD 03/04/24 [History] Metformin HCl 500 mg [Glucophage 500 MG] 1,000 mg PO UD 03/04/24 [History] Polyethylene Glycol 3350 17 gm [Miralax Powder 17GM PACKET] 1 packet PO UD 03/04/24 [History] Tamsulosin HCl 0.4 mg [Flomax 0.4 MG] 1 cap PO UD 03/04/24 [History] Timolol Maleate 0.25% Eye [Timolol 0.25% Opth Nikkie 5 ML] 1 drop .ROUTE UD 03/04/24 [History] Hx Tetanus, Diphtheria Vaccination/Date Given: Yes Hx Influenza Vaccination/Date Given: Yes Hx Pneumococcal Vaccination/Date Given: Yes Travel Risk - Emerging Infectious Disease Are you exhibiting symptoms associated with any current EIDs: No - Review of Systems Constitutional: No Symptoms Eyes: No Symptoms Ears, Nose, & Throat: No Symptoms Respiratory: No Symptoms Cardiac: No Symptoms Abdominal/Gastrointestinal: No Symptoms Genitourinary Symptoms: No Symptoms Musculoskeletal: No Symptoms Skin: No Symptoms Neurological: No Symptoms Psychological: No Symptoms Endocrine: No Symptoms Hematologic/Lymphatic: No Symptoms Immunological/Allergic: No Symptoms - Past Medical History Pertinent Past Medical History: Yes Neurological History: Stroke Cardiac History: High Cholesterol, Hypertension Endocrine Medical History: Diabetes Type II Other Medical History: blood disorder, anemia, lummi, foot ulcers, right buttocks pressure injury - Past Surgical History Past Surgical History: No - Social History Smoking Status: Former smoker Exposure to second hand smoke: Yes Drug Use: none Patient Lives Alone: No - Social Determinants of Health Will the patient participate in the screening: Yes Do you worry about a steady place to live?: No In the past 12 months,have you had to go without utilities?: No Transportation Issues: No Has anyone in your support network made you feel unsafe?: No Have you or anyone in your house had to go without enough: No - Nursing Vital Signs Nursing Vital Signs: Initial Vital Signs Temperature 97.7 F 08/02/24 15:05 Pulse Rate 100 H 08/02/24 15:05 Respiratory Rate 19 08/02/24 15:05 Blood Pressure 170/62 08/02/24 15:05 O2 Sat by Pulse Oximetry 97 08/02/24 15:05 Pain Scale Pain Intensity 0 - Physical Exam General Appearance: no apparent distress, alert Eye Exam: PERRL/EOMI, eyes nml inspection Ears, Nose, Throat Exam: normal ENT inspection, moist mucous membranes Neck Exam: normal inspection, full range of motion Respiratory Exam: normal breath sounds, lungs clear, No respiratory distress Cardiovascular Exam: regular rate/rhythm, normal heart sounds, normal peripheral pulses Gastrointestinal/Abdomen Exam: soft, normal bowel sounds, No tenderness, No mass Back Exam: normal inspection, normal range of motion, No CVA tenderness, No vertebral tenderness Extremity Exam: normal inspection, normal range of motion, pelvis stable, other (The involved right lower extremities neurovascular tact distally compartments are soft cap refill less than 2 seconds. Several maggots observed in the wounds at the level of the toes. No foul odor. No signs of cellulitis) Neurologic Exam: alert, oriented x 3, cooperative, normal mood/affect, sensation nml, No motor deficits Skin Exam: normal color, warm, dry, No rash Lymphatic Exam: No adenopathy SpO2 Interpretation: normal O2 Delivery: Room Air - Course Nursing assessment & vital signs reviewed: Yes - Radiology Exams Foot X-ray Interpretation: Teleradiologist Report (No acute findings) Ordered Tests: Active Orders 24 hr Category Date Time Status FOOT (MINIMUM 3 VIEWS) Stat Exams 08/02/24 16:04 Completed CBC W DIFF Stat Lab 08/02/24 15:52 Completed CMP Stat Lab 08/02/24 15:52 Completed POCT GLUCOSE Stat Lab 08/02/24 18:37 Completed Lab/Rad Data: Laboratory Result Diagrams 08/02/24 15:52 08/02/24 15:52 Laboratory Results 08/02/24 08/02/24 08/02/24 Range/Units 18:37 15:52 15:52 WBC 3.8 L (4.23-9.07) x10^3/uL RBC 2.03 L (4.63-6.08) x10^6/uL Hgb 8.4 L (13.7-17.5) g/dL Hct 26.3 L (40.1-51.0) % MCV 129.6 H (79.0-92.2) fL MCH 41.4 H (25.7-32.2) pg MCHC 31.9 L (32.3-36.5) g/dL RDW 15.8 H (11.6-14.4) % Plt Count 529 H (163-337) x10^3/uL MPV 8.7 L (9.4-12.4) fL Gran % 63.4 (34.0-67.9) % Immature Gran % (Auto) 1.3 H (0.001-0.429) % Nucleat RBC Rel Count 0.5 H (0.00-0.2) % Eos # (Auto) 0.13 (0.04-0.54) x10^3/uL Immature Gran # (Auto) 0.05 H (0.001-0.031) x10^3u/L Absolute Lymphs (auto) 0.77 L (1.32-3.57) x10^3/uL Absolute Monos (auto) 0.39 (0.30-0.82) x10^3/uL Absolute Nucleated RBC 0.02 H (0.00-0.012) x10^3u/L Lymphocytes % 20.3 L (21.8-53.1) % Monocytes % 10.3 (5.3-12.2) % Eosinophils % 3.4 (0.8-7.0) % Basophils % 1.3 H (0.2-1.2) % Absolute Granulocytes 2.41 (1.78-5.38) x10^3/uL Basophils # 0.05 (0.01-0.08) x10^3/uL Sodium 134 L (135-145) mmol/L Potassium 4.4 (3.5-5.1) mmol/L Chloride 100 (98-107) mmol/L Carbon Dioxide 25 (22-30) mmol/L Anion Gap 12.6 (5-15) MEQ/L BUN 23 H (9-20) mg/dL Creatinine 1.28 H (0.66-1.25) mg/dL Estimated GFR 56.9 ML/MIN Glucose 69 L (74-106) mg/dL POC Glucometer 62 L (74 to 106) mg/dL Calcium 9.6 (8.4-10.2) mg/dL Total Bilirubin 0.20 (0.2-1.3) mg/dL AST 22 (17-59) U/L ALT 18 (0-50) U/L Alkaline Phosphatase 74 (38-126) U/L Serum Total Protein 7.4 (6.3-8.2) g/dL Albumin 3.8 (3.5-5.0) g/dL - Progress Progress: improved Progress Note: 79-year-old male presents to emergency department as a referral from [facility] for evaluation of maggots in right foot wound. Maggots were removed and reoccurred. Patient requires podiatry evaluation possible debridement. We do not have podiatry immediately available. We contacted the [facility]. [facility] accepts transfer. Plan of care discussed with patient. He agrees to transfer to [facility] for further evaluation and treatment. No antibiotics indicated at this time. Vital stable. Portions of this note were created with voice recognition technology. There may be grammatical, spelling, punctuation or sound alike errors Complexity of problem addressed is moderate acute complicated. No critical care time. Complexity of data reviewed and analyzed is extensive. Test ordered chest reviewed results analyzed and correlated clinically with history and physical exam. Management discussed with providers at the [facility]. Risk of complication and or risk of morbidity/mortality of patient management is high. Patient requires transfer to higher level of care. Vital stable. Time spent to transfer patient is approximately 20 minutes. Plan of care established for shared decision making. No social determinants of health present to impede follow-up. Portions of this note were created with voice recognition technology. There may be grammatical, spelling, punctuation or sound alike errors. 08/02/24 21:38 Counseled pt/family regarding: diagnosis, need for follow-up - Departure Departure Disposition: Transfer Clinical Impression: Leukopenia, Macrocytic anemia, Maggots in wound Condition: Stable Critical Care Time: No Referrals: CHRIS CASTELLANOS GOLD PROSPECTOR [Primary Care Provider] - Follow up/PCP as directed
[2024-08-02 15:33] VITALS: TEMP 97.7; O2SAT 97
[2024-08-02 15:57] LABS: Absolute Neutrophil Ct (ANC) 2.41 x10^3/uL (1.78-5.38); BASOPHIL % 1.3 % (0.2-1.2); Basophil (Absolute #) 0.05 x10^3/uL (0.01-0.08); Eosinophil % 3.4 % (0.8-7.0); Eosinophil (Absolute #) 0.13 x10^3/uL (0.04-0.54); Hematocrit 26.3 % (40.1-51.0); Hemoglobin 8.4 g/dL (13.7-17.5); IMMATURE GRAN # 0.05 x10^3u/L (0.001-0.031); IMMATURE GRAN % 1.3 % (0.001-0.429); Lymphocyte (Absolute #) 0.77 x10^3/uL (1.32-3.57); Lymphocytes % 20.3 % (21.8-53.1); Mean Cell Volume 129.6 fL (79.0-92.2); Mean Corpuscular Hemoglobin 41.4 pg (25.7-32.2); Mean Corpuscular Hgb Concent. 31.9 g/dL (32.3-36.5); Mean Platelet Volume 8.7 fL (9.4-12.4); Monocyte (Absolute #) 0.39 x10^3/uL (0.30-0.82); Monocytes % 10.3 % (5.3-12.2); NUCLEATED RBC # 0.02 x10^3u/L (0.00-0.012); NUCLEATED RBC % 0.5 % (0.00-0.2); Neutrophil % 63.4 % (34.0-67.9); Platelet Count 529 x10^3/uL (163-337); Red Blood Count 2.03 x10^6/uL (4.63-6.08); Red Cell Distribution Width 15.8 % (11.6-14.4); White Blood Count 3.8 x10^3/uL (4.23-9.07)
[2024-08-02 16:06] LABS: ALBUMIN 3.8 g/dL (3.5-5.0); ANION GAP 12.6 MEQ/L (5-15); BILIRUBIN,TOTAL 0.2 mg/dL (0.2-1.3); Calcium 9.6 mg/dL (8.4-10.2); Creatinine 1 1.28 mg/dL (0.66-1.25); EST GLOMERULAR FILTRATION RATE 56.9 ML/MIN; Potassium 4.4 mmol/L (3.5-5.1); Total Protein 7.4 g/dL (6.3-8.2)
--- NOTE | 2024-08-02 16:48 | XRAY ---
Indication: Pain. Comparison: May 24, 2024 3 nonweightbearing views right foot unchanged again demonstrating osteopenia, mild 1st tarsometatarsal/1st MTP degenerative changes, small plantar heel spur, and extensive scattered vascular calcifications. No new/acute abnormalities.
[2024-08-02 20:04] VITALS: RESP 18
[2024-08-02 22:02] VITALS: BP 121/66; PULSE 92
== END 2024-08-02 22:30 | disposition short-term general hospital (02) ==
LOC: ED 14:46
DX: S91.301A Unspecified open wound, right foot, initial encounter (principal); L08.9 Local infection of the skin and subcutaneous tissue, unspecified; D72.819 Decreased white blood cell count, unspecified; D53.9 Nutritional anemia, unspecified; E78.5 Hyperlipidemia, unspecified; I10 Essential (primary) hypertension; E11.9 Type 2 diabetes mellitus without complications; Z79.84 Long term (current) use of oral hypoglycemic drugs; Z79.899 Other long term (current) drug therapy
CPT/HCPCS: 36415; 73630; 80053; 82947; 85025; 99284

== ENCOUNTER 2024-11-18 11:23 | Emergency (ER) | payer OTHER ==
[2024-11-18 11:36] VITALS: RESP 20; TEMP 97.5
--- NOTE | 2024-11-18 11:45 | ERPHSYRPT ---
- History of Present Illness Time Seen by Provider: 11/18/24 11:45 Source: patient, EMS, old records Exam Limitations: no limitations Patient Subjective Stated Complaint: pt reports an injury to his right 2nd, 3rd and 4th toes approx 2 months ago, states he has a visiting nurse that is seeing him for this, pt states approx one week ago he fell and injured the right great toe. visiting nurse today sent pt to ED for evaluation. pt states his sensation is limited but at times does have pain to the injured foot. Triage Nursing Assessment: pt is aox3, afebrile, resps easy and non labored, radial pulses strong, cap refill < 3 seconds, pt skin pink warm dry. pt with edematous BLE. pt right foot is grossly swollen and red. 4+ pitting edema, with a wound to the medial right great toe. wound also noted to the dorsal 2nd and 3rd toes. Physician History: This is a 79-year-old white male patient who was brought to the emergency department by the [employer] service because of concern of changes in the patient's right foot following an injury 1 week ago. The home health care nurse evaluated this patient. Patient has chronic history of bilateral lower extremity edema/swelling. Patient has a history of hypertension, diabetes, peripheral neuropathy with minimal/limited sensation and has a history of CVA in the past. Patient injured right foot toes 2 3 and 4 2 months ago. Method of Injury: fell (Actually 1 week ago) Occurred: last week Severity of Pain-Max: mild Severity of Pain-Current: mild Lower Extremities Pain: 1st toe: right Modifying Factors: Improves With: nothing Associated Symptoms: none Allergies/Adverse Reactions: Beta-Blockers (Beta-Adrenergic Bloc Adverse Reaction (Verified 11/18/24 11:36) Home Medications: Folic Acid 1 mg [Folate 1 mg] 1 mg PO UD 03/04/24 [History] Gabapentin [Neurontin ] 600 mg PO UD 03/04/24 [History] Glipizide 10 mg [Glucotrol 10 MG] 10 mg PO UD 03/04/24 [History] Hydroxyurea [Siklos] 1,000 mg PO UD 03/04/24 [History] Lisinopril/Hydrochlorothiazide [Lisinopril-Hctz 20-12.5 mg Tab] 1 tab PO UD 03/04/24 [History] Metformin HCl 500 mg [Glucophage 500 MG] 1,000 mg PO UD 03/04/24 [History] Polyethylene Glycol 3350 17 gm [Miralax Powder 17GM PACKET] 1 packet PO UD 03/04/24 [History] Tamsulosin HCl 0.4 mg [Flomax 0.4 MG] 1 cap PO 03/04/24 [History] Timolol Maleate 0.25% Eye [Timolol 0.25% Opth [place] 5 ML] 1 drop .ROUTE 03/04/24 [History] Hx Tetanus, Diphtheria Vaccination/Date Given: Yes Hx Influenza Vaccination/Date Given: Yes Hx Pneumococcal Vaccination/Date Given: Yes Immunizations Up to Date: Yes Travel Risk - International Travel Have you traveled outside of the country in past 3 weeks: No - Emerging Infectious Disease Are you exhibiting symptoms associated with any current EIDs: No - Review of Systems Constitutional: No Symptoms Eyes: No Symptoms Ears, Nose, & Throat: No Symptoms Respiratory: No Symptoms Cardiac: No Symptoms Abdominal/Gastrointestinal: No Symptoms Genitourinary Symptoms: No Symptoms Musculoskeletal: Fall, Injury (Right first toe) Skin: Other (Bilateral pitting edema up to mid calf level including bilateral f eet. Dry skin present) Neurological: No Symptoms Psychological: No Symptoms Endocrine: No Symptoms Hematologic/Lymphatic: No Symptoms Immunological/Allergic: No Symptoms All Other Systems: Reviewed and Negative - Past Medical History Pertinent Past Medical History: Yes Neurological History: Stroke Cardiac History: High Cholesterol, Hypertension Endocrine Medical History: Diabetes Type II Other Medical History: blood disorder ,anemia,[place] - Past Surgical History Past Surgical History: No - Social History Smoking Status: Former smoker Exposure to second hand smoke: Yes Drug Use: none Patient Lives Alone: No - Social Determinants of Health Will the patient participate in the screening: Yes Do you worry about a steady place to live?: No Do you have any problems with any of the following?: No known problems In the past 12 months,have you had to go without utilities?: No Transportation Issues: No Has anyone in your support network made you feel unsafe?: No Have you or anyone in your house had to go without enough: No - Nursing Vital Signs Nursing Vital Signs: Initial Vital Signs Temperature 97.5 F 11/18/24 11:24 Pulse Rate 106 H 11/18/24 11:24 Respiratory Rate 20 11/18/24 11:24 Blood Pressure 173/116 11/18/24 11:24 O2 Sat by Pulse Oximetry 96 11/18/24 11:24 Pain Scale Pain Intensity 0 - Physical Exam General Appearance: no apparent distress, alert Eyes, Ears, Nose, Throat Exam: normal ENT inspection, moist mucous membranes Neck Exam: normal inspection, non-tender, supple, full range of motion Cardiovascular/Respiratory Exam: chest non-tender, no respiratory distress Gastrointestinal/Abdominal Exam: non-tender Back Exam: normal inspection, normal range of motion, No CVA tenderness, No vertebral tenderness Hips Exam: bilateral: non-tender, normal inspection, normal range of motion, no evidence of injury Legs Exam: bilateral leg: non-tender, normal inspection, normal range of motion, no evidence of injury Knees Exam: bilateral knee: non-tender, normal inspection, normal range of motion, no evidence of injury Ankle Exam: bilateral ankle: swelling (pitting edema) Foot Exam: right foot: other (Abnormal eschar/exudate medial aspect right first toe), bilateral foot: swelling (Pitting edema) Neuro/Tendon Exam: normal motor functions, normal tendon functions, sensory deficit (Patient has peripheral neuropathy) Mental Status Exam: alert, oriented x 3, cooperative Skin Exam: other (See above foot section) SpO2 Interpretation: normal SpO2: 96 O2 Delivery: Room Air Ordered Tests: Active Orders 24 hr Category Date Time Status IV Insertion STAT Care 11/18/24 12:33 Active Pulse Oximetry (ED) STAT Care 11/18/24 12:33 Active FOOT (MINIMUM 3 VIEWS) Stat Exams 11/18/24 12:34 Completed BLOOD CULTURE Stat Lab 11/18/24 13:00 Received CBC W DIFF Stat Lab 11/18/24 13:19 Completed CMP Stat Lab 11/18/24 13:19 Completed Lactic Acid Stat Lab 11/18/24 12:33 Completed PROCALCITONIN Stat Lab 11/18/24 13:19 Completed UA W/RFX UR CULTURE Stat Lab 11/18/24 13:50 Received Medication Summary Generic Name Dose Route Start Last Admin Trade Name Freq PRN Reason Stop Dose Admin Levofloxacin/Dextrose 500 mg in 100 mls @ 100 mls/hr 11/18/24 14:05 Levofloxacin 500mg/100ml D5w IV 11/18/24 15:04 STAT STA Lab/Rad Data: Laboratory Result Diagrams 11/18/24 13:19 11/18/24 13:19 Laboratory Results 11/18/24 11/18/24 11/18/24 Range/Units 13:19 13:19 12:33 WBC 6.2 (4.23-9.07) x10^3/uL RBC 2.53 L (4.63-6.08) x10^6/uL Hgb 9.8 L (13.7-17.5) g/dL Hct 30.3 L (40.1-51.0) % MCV 119.8 H (79.0-92.2) fL MCH 38.7 H (25.7-32.2) pg MCHC 32.3 (32.3-36.5) g/dL RDW 14.1 (11.6-14.4) % Plt Count 606 H (163-337) x10^3/uL MPV 8.8 L (9.4-12.4) fL Gran % 69.2 H (34.0-67.9) % Immature Gran % (Auto) 1.1 H (0.001-0.429) % Nucleat RBC Rel Count 0.0 (0.00-0.2) % Eos # (Auto) 0.23 (0.04-0.54) x10^3/uL Immature Gran # (Auto) 0.07 H (0.001-0.031) x10^3u/L Absolute Lymphs (auto) 0.91 L (1.32-3.57) x10^3/uL Absolute Monos (auto) 0.62 (0.30-0.82) x10^3/uL Absolute Nucleated RBC 0.00 (0.00-0.012) x10^3u/L Lymphocytes % 14.6 L (21.8-53.1) % Monocytes % 10.0 (5.3-12.2) % Eosinophils % 3.7 (0.8-7.0) % Basophils % 1.4 H (0.2-1.2) % Absolute Granulocytes 4.30 (1.78-5.38) x10^3/uL Basophils # 0.09 H (0.01-0.08) x10^3/uL Sodium 133 L (135-145) mmol/L Potassium 4.2 (3.5-5.1) mmol/L Chloride 101 (98-107) mmol/L Carbon Dioxide 24 (22-30) mmol/L Anion Gap 12.7 (5-15) MEQ/L BUN 23 H (9-20) mg/dL Creatinine 0.91 (0.66-1.25) mg/dL Estimated GFR 85.7 ML/MIN Glucose 141 H (74-106) mg/dL Lactic Acid 2.4 H (0.4-2.0) Calcium 9.1 (8.4-10.2) mg/dL Total Bilirubin 0.30 (0.2-1.3) mg/dL AST 23 (17-59) U/L ALT 17 (0-50) U/L Alkaline Phosphatase 83 (38-126) U/L Serum Total Protein 7.2 (6.3-8.2) g/dL Albumin 3.7 (3.5-5.0) g/dL Procalcitonin 0.054 (0.030-0.080) ng/mL - Progress Progress: unchanged Progress Note: 11/18/24 12:39 My medical decision making and the assignment of moderate complexity to this patient's medical issue today is based on review of the patient's past medical history, review of the patient's medication list, reviewed patient drug allergy list, history present illness and physical findings on examination. The workup in this patient includes placement of a intravenous line, urinalysis, CBC, CMP, lactic acid level, x-ray of right foot, procalcitonin level. If he is available, we will contact Dr. Bustos, our in-house back sewer for assessment and recommendations here in the emergency department. Differential diagnosis includes but is not limited to cellulitis, osteomyelitis 11/18/24 14:08 I interpreted the patient's laboratory data results. Based on the laboratory data results, the patient does not have an acute, emergent medical issue. Patient's procalcitonin, CO2 and anion gap are normal. The lactic acid level is just slightly elevated at 2.4. Patient has a normal white blood cell count. I did discuss with back sewer, Dr. Bustos this patient. Dr. Bustos interpreted the x-ray of the patient's right foot. Dr. Bustos stated that if the patient is admitted he can be consulted. However, he also feels the patient might be able to be discharged to home given the clinical picture I described to him as well as the laboratory data results that he reviewed. We will provide the patient with an intravenous dose of Levaquin and provide him with an outpatient prescription of the same. Dr. Bustos wants to see him in the office on 08/21/2025. We will call his office to arrange outpatient appointment. 11/18/24 14:11 Interpreted the preliminary report on the patient's right foot x-ray. I do not appreciate an acute fracture or any dislocations. Counseled pt/family regarding: lab results, diagnosis, rad results Medical Desision Making - Independent Historian Additional History obtained from: Clinic Lpn/EMT - Diagnostic Testing Diagnostic test were ordered, analyzed, and reviewed by me: Yes Radiological Interpretation: Interpreted by me, Teleradiologist Report - Risk of complications The pt has a mod risk of morbidity or mortality based on: Need for prescription drug management - Departure Departure Disposition: Home Clinical Impression: Cellulitis of right foot Condition: Stable Critical Care Time: No Referrals: CHRIS CASTELLANOS FNP [Primary Care Provider] - Follow up/PCP as directed Additional Instructions: Continue the antibiotic and your other medications as prescribed. Follow-up with Dr. Bustos, podiatry, in his office on 11/21/2024 at the scheduled appointment time. Prescriptions: Levofloxacin [Levaquin 500 MG Tablet] 500 mg PO DAILY #7 tablet
--- NOTE | 2024-11-18 13:05 | XRAY ---
Indication: 1st toe injury. Comparison: August 02, 2024 3 nonweightbearing views right foot unchanged again demonstrating osteopenia, mild 1st tarsometatarsal/1st MTP degenerative changes, small plantar heel spur, diffuse soft tissue swelling, and extensive scattered vascular calcifications. No new/acute abnormalities.
[2024-11-18 13:08] VITALS: PULSE 102
[2024-11-18 13:21] LABS: BASOPHIL % 1.4 % (0.2-1.2); Basophil (Absolute #) 0.09 x10^3/uL (0.01-0.08); Eosinophil % 3.7 % (0.8-7.0); Eosinophil (Absolute #) 0.23 x10^3/uL (0.04-0.54); Hematocrit 30.3 % (40.1-51.0); Hemoglobin 9.8 g/dL (13.7-17.5); IMMATURE GRAN # 0.07 x10^3u/L (0.001-0.031); IMMATURE GRAN % 1.1 % (0.001-0.429); Lymphocyte (Absolute #) 0.91 x10^3/uL (1.32-3.57); Lymphocytes % 14.6 % (21.8-53.1); Mean Cell Volume 119.8 fL (79.0-92.2); Mean Corpuscular Hemoglobin 38.7 pg (25.7-32.2); Mean Corpuscular Hgb Concent. 32.3 g/dL (32.3-36.5); Mean Platelet Volume 8.8 fL (9.4-12.4); Monocyte (Absolute #) 0.62 x10^3/uL (0.30-0.82); Neutrophil % 69.2 % (34.0-67.9); Platelet Count 606 x10^3/uL (163-337); Red Blood Count 2.53 x10^6/uL (4.63-6.08); Red Cell Distribution Width 14.1 % (11.6-14.4); White Blood Count 6.2 x10^3/uL (4.23-9.07)
[2024-11-18 13:54] LABS: ALBUMIN 3.7 g/dL (3.5-5.0); ANION GAP 12.7 MEQ/L (5-15); BILIRUBIN,TOTAL 0.3 mg/dL (0.2-1.3); Calcium 9.1 mg/dL (8.4-10.2); Creatinine 1 0.91 mg/dL (0.66-1.25); EST GLOMERULAR FILTRATION RATE 85.7 ML/MIN; PROCALCITONIN 0.054 ng/mL (0.030-0.080); Potassium 4.2 mmol/L (3.5-5.1); Total Protein 7.2 g/dL (6.3-8.2)
[2024-11-18 14:04] LABS: Appearance Clear (Clear); Bacteria None Seen /HPF (None Seen); Bilirubin Negative (Negative); Blood Negative (Negative); Epithelial Cells None Seen /HPF (None Seen); Glucose, Urine Negative (Negative); Hyaline Casts NONE SEEN /LPF (0-2); Ketones Negative (Negative); Leukocyte Esterase Negative (Negative); Nitrite Negative (Negative); Ph 6.5 (4.6-8.0); Protein,Urine Dip Negative (Negative); RBC 0-2 /HPF (0-5); Specific Gravity <=1.005 (1.005-1.030); Urobilinogen 0.2 mg/dL (0.2); WBC 0-2 /HPF (0-5)
[2024-11-18] MEDS ORDERED: Levofloxacin 500MG/100ML D5W 500 MG/100 ML BAG IV ONE (14:09)
[2024-11-18] MEDS: Levofloxacin 500MG/100ML D5W 500 MG/100 ML BAG IV STA (14:12)
[2024-11-18 14:13] VITALS: O2SAT 96
[2024-11-18 14:40] VITALS: BP 184/76
== END 2024-11-18 15:28 | disposition home or self-care (01) ==
LOC: ED 11:23
DX: L03.115 Cellulitis of right lower limb (principal); I10 Essential (primary) hypertension; E11.42 Type 2 diabetes mellitus with diabetic polyneuropathy; Z79.84 Long term (current) use of oral hypoglycemic drugs; Z79.899 Other long term (current) drug therapy
CPT/HCPCS: 36415; 73630; 80053; 81001; 83605; 84145; 85025; 87040; 94760; 96365; 99284; J1956

== ENCOUNTER 2025-01-30 10:58 | Inpatient (IN) | payer OTHER ==
--- NOTE | 2025-01-30 11:02 | ERPHSYRPT ---
- History of Present Illness Time Seen by Provider: 01/30/25 11:02 Source: patient, family Exam Limitations: no limitations Physician History: This is a 79-year-old white male patient of Dr. Castellanos and is a [facility] who was brought into the scientist/engineer service with the complaint of weakness. Patient was transported from home. Patient denies chest pain. He denies shortness of breath. Patient is diabetic, has a history of hypertension, prostate issues, hyperlipidemia, chronic anemia, peripheral neuropathy and has had a stroke in the past. His symptoms have worsened over the last few days. Timing/Duration: day(s), worse (Last few days) Severity: moderate Modifying Factors: Improves With: nothing Associated Symptoms: weakness, No abdominal pain, No shortness of breath, No chest pain Allergies/Adverse Reactions: amoxicillin [From Augmentin] Adverse Reaction (Verified 01/30/25 11:18) Rash Beta-Blockers (Beta-Adrenergic Bloc Adverse Reaction (Verified 11/18/24 11:36) clavulanic acid [From Augmentin] Adverse Reaction (Verified 01/30/25 11:18) Rash hydrochlorothiazide Adverse Reaction (Verified 01/30/25 11:18) Swelling Home Medications: Folic Acid 1 mg [Folate 1 mg] 1 mg PO DAILY 03/04/24 [History] Gabapentin [Neurontin ] 600 mg PO TID 03/04/24 [History] Hydroxyurea [Siklos] See Rx Instructions .ROUTE .COMPLEX 03/04/24 [History] Metformin HCl 500 mg [Glucophage 500 MG] 1,000 mg PO BID 03/04/24 [History] Tamsulosin HCl 0.4 mg [Flomax 0.4 MG] 1 cap PO DAILY 03/04/24 [History] Timolol Maleate 0.25% Eye [Timolol 0.25% Opth Nikkie 5 ML] 1 drop .ROUTE BID 03/04/24 [History] Aspirin EC 81 mg [Ecotrin 81 mg] 1 tab PO DAILY 01/30/25 [History] Atorvastatin Calcium 1 tab PO HS 01/30/25 [History] Cholecalciferol (Vitamin D3) [Vitamin D] 5,000 units PO DAILY 01/30/25 [History] Cyanocobalamin (Vitamin B-12) [Vitamin B-12] 1 tab PO DAILY 01/30/25 [History] Dextromethorphan/Guaifenesin See Rx Instructions .ROUTE .COMPLEX 01/30/25 [History] Lisinopril 20 mg [Zestril 20 MG] 1 tab PO DAILY 01/30/25 [History] Nutritional Supplement [Breakfast Essentials] 1 packet PO BID 01/30/25 [History] Povidone-Iodine Ointment [Povidine Ointment 1 OZ] See Rx Instructions .ROUTE .COMPLEX 01/30/25 [History] Sennosides/Docusate Sodium [Docusate Sodium-Sennosides Tab] See Rx Instructions .ROUTE .COMPLEX 01/30/25 [History] Sodium Chlor/Hypochlorous Acid [Vashe Solution] See Rx Instructions .ROUTE .COMPLEX 01/30/25 [History] Hx Tetanus, Diphtheria Vaccination/Date Given: Yes Hx Influenza Vaccination/Date Given: Yes Hx Pneumococcal Vaccination/Date Given: Yes Travel Risk - Emerging Infectious Disease Are you exhibiting symptoms associated with any current EIDs: Yes Symptoms: Other (Please Comment) (Weakness) - Review of Systems Constitutional: Weakness Eyes: No Symptoms Ears, Nose, & Throat: No Symptoms Respiratory: No Symptoms Cardiac: No Symptoms Abdominal/Gastrointestinal: No Symptoms Genitourinary Symptoms: No Symptoms Musculoskeletal: No Symptoms Skin: Other (Drainage from bilateral diabetic foot ulcers) Neurological: No Symptoms Psychological: No Symptoms Endocrine: No Symptoms Hematologic/Lymphatic: No Symptoms Immunological/Allergic: No Symptoms All Other Systems: Reviewed and Negative - Past Medical History Pertinent Past Medical History: Yes Neurological History: Stroke Cardiac History: High Cholesterol, Hypertension Endocrine Medical History: Diabetes Type II Other Medical History: blood disorder ,anemia,[place] - Past Surgical History Past Surgical History: No - Social History Smoking Status: Former smoker Exposure to second hand smoke: Yes Drug Use: none Patient Lives Alone: No - Social Determinants of Health Will the patient participate in the screening: Yes Do you worry about a steady place to live?: No In the past 12 months,have you had to go without utilities?: No Transportation Issues: No Has anyone in your support network made you feel unsafe?: No Have you or anyone in your house had to go w/o enough food: No - Nursing Vital Signs Nursing Vital Signs: Initial Vital Signs Temperature 97.6 F 01/30/25 11:11 Pulse Rate 105 H 01/30/25 11:11 Respiratory Rate 16 01/30/25 11:11 Blood Pressure 168/75 01/30/25 11:11 O2 Sat by Pulse Oximetry 96 01/30/25 11:11 Pain Scale Pain Intensity 3 - Physical Exam General Appearance: mild distress, alert, anxiety, thin Eye Exam: PERRL/EOMI, eyes nml inspection Ears, Nose, Throat Exam: normal ENT inspection Neck Exam: normal inspection, non-tender, supple, full range of motion Respiratory Exam: normal breath sounds, lungs clear, airway intact, No chest tenderness, No respiratory distress Cardiovascular Exam: regular rate/rhythm, normal heart sounds, normal peripheral pulses Gastrointestinal/Abdomen Exam: soft, normal bowel sounds, guarding, No tenderness Back Exam: normal inspection, normal range of motion, vertebral tenderness, No CVA tenderness Extremity Exam: normal inspection, normal range of motion, pelvis stable Neurologic Exam: alert, oriented x 3, cooperative, 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 No acute ischemic changes on today's twelve-lead EKG.) Ordered Tests: Active Orders 24 hr Category Date Time Status EKG-ER Only STAT Care 01/30/25 14:23 Active IV Insertion STAT Care 01/30/25 11:16 Active Pulse Oximetry (ED) STAT Care 01/30/25 11:16 Active Consult Podiatry ROUTINE Cons 01/30/25 11:31 Completed CHEST 1 VIEW (PORTABLE) Stat Exams 01/30/25 11:17 Completed FOOT (MINIMUM 3 VIEWS) Stat Exams 01/30/25 12:07 Completed FOOT (MINIMUM 3 VIEWS) Stat Exams 01/30/25 12:08 Completed BLOOD CULTURE Stat Lab 01/30/25 11:44 Received CBC W DIFF Stat Lab 01/30/25 11:44 Completed CMP Stat Lab 01/30/25 11:44 Completed CULTURE,URINE Stat Lab 01/30/25 12:40 Received CULTURE,WOUND Stat Lab 01/30/25 12:15 Received Lactic Acid Stat Lab 01/30/25 11:40 Completed Lactic Acid Stat Lab 01/30/25 13:49 Received MAGNESIUM Stat Lab 01/30/25 11:44 Completed MONO SCREEN Stat Lab 01/30/25 11:44 Completed PROCALCITONIN Stat Lab 01/30/25 11:44 Completed TROPONIN Q4H Lab 01/30/25 11:44 Completed TROPONIN Q4H Lab 01/30/25 15:30 Ordered TROPONIN Q4H Lab 01/30/25 19:30 Ordered UA W/RFX UR CULTURE Stat Lab 01/30/25 12:40 Completed EKG STAT RT 01/30/25 14:16 Active Medication Summary Generic Name Dose Route Start Last Admin Trade Name Freq PRN Reason Stop Dose Admin Sodium Chloride 1,000 mls @ 100 mls/hr 01/30/25 11:30 01/30/25 12:09 Sodium Chloride 0.9% 1000 Ml IV 03/01/25 11:29 100 mls/hr .Q10H VIOLA Administration Discontinued Medications Generic Name Dose Route Start Last Admin Trade Name Freq PRN Reason Stop Dose Admin Clindamycin HCl/Dextrose 600 mg in 50 mls @ 100 mls/hr 01/30/25 12:55 01/30/25 14:51 Clindamycin-D5w 600 Mg/50 Ml IV 01/30/25 13:24 Infused STAT STA Infusion Clindamycin HCl/Dextrose Confirm 01/30/25 13:12 Clindamycin-D5w 600 Mg/50 Ml Administered 01/30/25 13:13 Dose 600 mg in 50 mls @ ud IV .STK-MED ONE Lab/Rad Data: Laboratory Result Diagrams 01/30/25 11:44 01/30/25 11:44 Laboratory Results 01/30/25 01/30/25 01/30/25 Range/Units 12:40 11:44 11:44 WBC (4.23-9.07) x10^3/uL RBC (4.63-6.08) x10^6/uL Hgb (13.7-17.5) g/dL Hct (40.1-51.0) % MCV (79.0-92.2) fL MCH (25.7-32.2) pg MCHC (32.3-36.5) g/dL RDW (11.6-14.4) % Plt Count (163-337) x10^3/uL MPV (9.4-12.4) fL Gran % (34.0-67.9) % Immature Gran % (Auto) (0.001-0.429) % Nucleat RBC Rel Count (0.00-0.2) % Eos # (Auto) (0.04-0.54) x10^3/uL Immature Gran # (Auto) (0.001-0.031) x10^3u/L Absolute Lymphs (auto) (1.32-3.57) x10^3/uL Absolute Monos (auto) (0.30-0.82) x10^3/uL Absolute Nucleated RBC (0.00-0.012) x10^3u/L Lymphocytes % (21.8-53.1) % Monocytes % (5.3-12.2) % Eosinophils % (0.8-7.0) % Basophils % (0.2-1.2) % Absolute Granulocytes (1.78-5.38) x10^3/uL Basophils # (0.01-0.08) x10^3/uL Sodium (135-145) mmol/L Potassium (3.5-5.1) mmol/L Chloride (98-107) mmol/L Carbon Dioxide (22-30) mmol/L Anion Gap (5-15) MEQ/L BUN (9-20) mg/dL Creatinine (0.66-1.25) mg/dL Estimated GFR ML/MIN Glucose (74-106) mg/dL Lactic Acid (0.4-2.0) Calcium (8.4-10.2) mg/dL Magnesium (1.6-2.3) mg/dL Total Bilirubin (0.2-1.3) mg/dL AST (17-59) U/L ALT (0-50) U/L Alkaline Phosphatase (38-126) U/L Troponin I < 0.012 (0.000-0.033) ng/mL Serum Total Protein (6.3-8.2) g/dL Albumin (3.5-5.0) g/dL Procalcitonin (0.030-0.080) ng/mL Urine Color Yellow (Yellow) Urine Appearance Clear (Clear) Urine pH 6.0 (4.6-8.0) Ur Specific [place] 1.025 (1.005-1.030) Urine Protein 100 A (Negative) Urine Glucose (UA) 250 A (Negative) mg/dL Urine Ketones 15 A (Negative) Urine Blood Negative (Negative) Urine Nitrite Negative (Negative) Urine Bilirubin Negative (Negative) Urine Urobilinogen 1.0 A (0.2) mg/dL Ur Leukocyte Esterase Negative (Negative) U Hyaline Cast (Auto) NONE SEEN (0-2) /LPF Urine Microscopic RBC 0-2 (0-5) /HPF Urine Microscopic WBC 0-2 (0-5) /HPF Ur Epithelial Cells None Seen (None Seen) /HPF Urine Bacteria None Seen (None Seen) /HPF Urine Culture Reflexed ORDERED SEPARATELY (NO) Monoscreen (NEGATIVE) Influenza Type A Ag NEGATIVE (NEGATIVE) Influenza Type B Ag NEGATIVE (NEGATIVE) RSV (PCR) NEGATIVE (NEGATIVE) SARS-CoV-2 (PCR) NEGATIVE (NEGATIVE) 01/30/25 01/30/25 01/30/25 Range/Units 11:44 11:44 11:44 WBC 9.3 H (4.23-9.07) x10^3/uL RBC 3.15 L (4.63-6.08) x10^6/uL Hgb 11.3 L (13.7-17.5) g/dL Hct 35.2 L (40.1-51.0) % MCV 111.7 H (79.0-92.2) fL MCH 35.9 H (25.7-32.2) pg MCHC 32.1 L (32.3-36.5) g/dL RDW 15.5 H (11.6-14.4) % Plt Count 548 H (163-337) x10^3/uL MPV 9.3 L (9.4-12.4) fL Gran % 80.2 H (34.0-67.9) % Immature Gran % (Auto) 0.9 H (0.001-0.429) % Nucleat RBC Rel Count 0.0 (0.00-0.2) % Eos # (Auto) 0.11 (0.04-0.54) x10^3/uL Immature Gran # (Auto) 0.08 H (0.001-0.031) x10^3u/L Absolute Lymphs (auto) 0.79 L (1.32-3.57) x10^3/uL Absolute Monos (auto) 0.77 (0.30-0.82) x10^3/uL Absolute Nucleated RBC 0.00 (0.00-0.012) x10^3u/L Lymphocytes % 8.5 L (21.8-53.1) % Monocytes % 8.3 (5.3-12.2) % Eosinophils % 1.2 (0.8-7.0) % Basophils % 0.9 (0.2-1.2) % Absolute Granulocytes 7.47 H (1.78-5.38) x10^3/uL Basophils # 0.08 (0.01-0.08) x10^3/uL Sodium 133 L (135-145) mmol/L Potassium 4.7 (3.5-5.1) mmol/L Chloride 98 (98-107) mmol/L Carbon Dioxide 23 (22-30) mmol/L Anion Gap 16.2 H (5-15) MEQ/L BUN 27 H (9-20) mg/dL Creatinine 0.93 (0.66-1.25) mg/dL Estimated GFR 83.5 ML/MIN Glucose 217 H (74-106) mg/dL Lactic Acid (0.4-2.0) Calcium 9.6 (8.4-10.2) mg/dL Magnesium 1.5 L (1.6-2.3) mg/dL Total Bilirubin 0.60 (0.2-1.3) mg/dL AST 68 H (17-59) U/L ALT 25 (0-50) U/L Alkaline Phosphatase 91 (38-126) U/L Troponin I (0.000-0.033) ng/mL Serum Total Protein 7.1 (6.3-8.2) g/dL Albumin 3.6 (3.5-5.0) g/dL Procalcitonin 0.085 H (0.030-0.080) ng/mL Urine Color (Yellow) Urine Appearance (Clear) Urine pH (4.6-8.0) Ur Specific [place] (1.005-1.030) Urine Protein (Negative) Urine Glucose (UA) (Negative) mg/dL Urine Ketones (Negative) Urine Blood (Negative) Urine Nitrite (Negative) Urine Bilirubin (Negative) Urine Urobilinogen (0.2) mg/dL Ur Leukocyte Esterase (Negative) U Hyaline Cast (Auto) (0-2) /LPF Urine Microscopic RBC (0-5) /HPF Urine Microscopic WBC (0-5) /HPF Ur Epithelial Cells (None Seen) /HPF Urine Bacteria (None Seen) /HPF Urine Culture Reflexed (NO) Monoscreen NEGATIVE (NEGATIVE) Influenza Type A Ag (NEGATIVE) Influenza Type B Ag (NEGATIVE) RSV (PCR) (NEGATIVE) SARS-CoV-2 (PCR) (NEGATIVE) 01/30/25 Range/Units 11:40 WBC (4.23-9.07) x10^3/uL RBC (4.63-6.08) x10^6/uL Hgb (13.7-17.5) g/dL Hct (40.1-51.0) % MCV (79.0-92.2) fL MCH (25.7-32.2) pg MCHC (32.3-36.5) g/dL RDW (11.6-14.4) % Plt Count (163-337) x10^3/uL MPV (9.4-12.4) fL Gran % (34.0-67.9) % Immature Gran % (Auto) (0.001-0.429) % Nucleat RBC Rel Count (0.00-0.2) % Eos # (Auto) (0.04-0.54) x10^3/uL Immature Gran # (Auto) (0.001-0.031) x10^3u/L Absolute Lymphs (auto) (1.32-3.57) x10^3/uL Absolute Monos (auto) (0.30-0.82) x10^3/uL Absolute Nucleated RBC (0.00-0.012) x10^3u/L Lymphocytes % (21.8-53.1) % Monocytes % (5.3-12.2) % Eosinophils % (0.8-7.0) % Basophils % (0.2-1.2) % Absolute Granulocytes (1.78-5.38) x10^3/uL Basophils # (0.01-0.08) x10^3/uL Sodium (135-145) mmol/L Potassium (3.5-5.1) mmol/L Chloride (98-107) mmol/L Carbon Dioxide (22-30) mmol/L Anion Gap (5-15) MEQ/L BUN (9-20) mg/dL Creatinine (0.66-1.25) mg/dL Estimated GFR ML/MIN Glucose (74-106) mg/dL Lactic Acid 2.6 H (0.4-2.0) Calcium (8.4-10.2) mg/dL Magnesium (1.6-2.3) mg/dL Total Bilirubin (0.2-1.3) mg/dL AST (17-59) U/L ALT (0-50) U/L Alkaline Phosphatase (38-126) U/L Troponin I (0.000-0.033) ng/mL Serum Total Protein (6.3-8.2) g/dL Albumin (3.5-5.0) g/dL Procalcitonin (0.030-0.080) ng/mL Urine Color (Yellow) Urine Appearance (Clear) Urine pH (4.6-8.0) Ur Specific [place] (1.005-1.030) Urine Protein (Negative) Urine Glucose (UA) (Negative) mg/dL Urine Ketones (Negative) Urine Blood (Negative) Urine Nitrite (Negative) Urine Bilirubin (Negative) Urine Urobilinogen (0.2) mg/dL Ur Leukocyte Esterase (Negative) U Hyaline Cast (Auto) (0-2) /LPF Urine Microscopic RBC (0-5) /HPF Urine Microscopic WBC (0-5) /HPF Ur Epithelial Cells (None Seen) /HPF Urine Bacteria (None Seen) /HPF Urine Culture Reflexed (NO) Monoscreen (NEGATIVE) Influenza Type A Ag (NEGATIVE) Influenza Type B Ag (NEGATIVE) RSV (PCR) (NEGATIVE) SARS-CoV-2 (PCR) (NEGATIVE) - Progress Progress: unchanged Progress Note: 01/30/25 11:20 My medical decision making and the assignment of moderate to high complexity is based on review of the patient's past medical history, review the patient's medi cation list, review the patient drug allergy list, history present illness and physical findings on examination. The workup in this patient includes placement of intravenous line, infusion of low rate crystalloid, lactic acid level, procalcitonin level, CBC, CMP, troponin level, twelve-lead EKG, chest x-ray, viral swabs, monotest, blood cultures, wound cultures of diabetic foot ulcers. Differential diagnosis includes but is not limited to sepsis, infected diabetic foot ulcer, anemia, arrhythmia, myocardial infarction, electrolyte abnormalities, urinary tract infection, upper respiratory infection, pneumonia 01/30/25 12:24 The chest x-ray was interpreted by the radiologist and I reviewed the impression. The impression states nonacute chest with chronic features. 01/30/25 12:51 The following x-rays were interpreted by the radiologist and I reviewed the impression: Right foot x-ray shows osteopenia with degenerative changes. There is soft tissue swelling present. There are no new or acute abnormalities present when compared to similar study dated 11/18/2024. Left foot x-ray shows osteopenia as well as degenerative changes and soft tissue swelling. There are no comparison films. 01/30/25 13:10 I interpreted the patient's laboratory data results. Based on the laboratory data results the patient does have a slight leukocytosis with a slight left shift. He is got mildly elevated procalcitonin level as well. His lactic acid was elevated. Patient was evaluated by our sustainable systems analyst here in the emergency department. Wound and blood cultures were obtained. We started him on a dose of clindamycin. Dr. Bustos will see him in the hospital with possible bed side debridement. We are awaiting for [facility] to call us back to obtain permission for him to be placed in observation here in [facility]. I spoke with our telehospitalist, Dr. Dodson. I reviewed the patient history, chief complaint, workup result and patient response to our workup. I informed him of Dr. Bustos's evaluation and plan. He agrees and will place him in observation and once cleared from the [facility]. 01/30/25 14:56 The [place] hospitalist contacted and they give permission to place this patient in observation. 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, Grade School Teacher/EMT - Discussion of managment Care discussed with:: hospitalist Reviewed:: Test results, Need for additional workup - Diagnostic Testing Diagnostic test were ordered, analyzed, and reviewed by me: Yes Radiological Interpretation: Reviewed by me, Teleradiologist Report - Risk of complications The pt has a high risk of morbidity or mortality based on: Decision regarding hospitilization or escalation of hosp level of care - Departure Departure Disposition: Observation Clinical Impression: Leukocytosis, Diabetic foot ulcers, Weakness, Lactic acidosis Condition: Fair Critical Care Time: No Referrals: CHRIS CASTELLANOS FNP [NON-STAFF PHY W/O PRIVILEGES] - Follow up/PCP as directed
--- NOTE | 2025-01-30 11:53 | XRAY ---
Indication: Weakness. Comparison: May 24, 2024 Portable chest is now clear. Heart not enlarged. Stable large chunky distal right paraesophageal calcified nodes. Bony thorax intact again with osteopenia and mild degenerative changes. Impression: Nonacute chest with chronic features.
[2025-01-30 11:55] LABS: Absolute Neutrophil Ct (ANC) 7.47 x10^3/uL (1.78-5.38); BASOPHIL % 0.9 % (0.2-1.2); Basophil (Absolute #) 0.08 x10^3/uL (0.01-0.08); Eosinophil % 1.2 % (0.8-7.0); Eosinophil (Absolute #) 0.11 x10^3/uL (0.04-0.54); Hematocrit 35.2 % (40.1-51.0); Hemoglobin 11.3 g/dL (13.7-17.5); IMMATURE GRAN # 0.08 x10^3u/L (0.001-0.031); IMMATURE GRAN % 0.9 % (0.001-0.429); Lymphocyte (Absolute #) 0.79 x10^3/uL (1.32-3.57); Lymphocytes % 8.5 % (21.8-53.1); Mean Cell Volume 111.7 fL (79.0-92.2); Mean Corpuscular Hemoglobin 35.9 pg (25.7-32.2); Mean Corpuscular Hgb Concent. 32.1 g/dL (32.3-36.5); Mean Platelet Volume 9.3 fL (9.4-12.4); Monocyte (Absolute #) 0.77 x10^3/uL (0.30-0.82); Monocytes % 8.3 % (5.3-12.2); Neutrophil % 80.2 % (34.0-67.9); Platelet Count 548 x10^3/uL (163-337); Red Blood Count 3.15 x10^6/uL (4.63-6.08); Red Cell Distribution Width 15.5 % (11.6-14.4); White Blood Count 9.3 x10^3/uL (4.23-9.07)
[2025-01-30] MEDS: Sodium Chloride 0.9% 1000 ML 1,000 ML IV SCH ×2 (12:09→18:42)
[2025-01-30 12:20] LABS: ALBUMIN 3.6 g/dL (3.5-5.0); ANION GAP 16.2 MEQ/L (5-15); BILIRUBIN,TOTAL 0.6 mg/dL (0.2-1.3); Calcium 9.6 mg/dL (8.4-10.2); Creatinine 1 0.93 mg/dL (0.66-1.25); EST GLOMERULAR FILTRATION RATE 83.5 ML/MIN; MAGNESIUM 1.5 mg/dL (1.6-2.3); PROCALCITONIN 0.085 ng/mL (0.030-0.080); Potassium 4.7 mmol/L (3.5-5.1); Total Protein 7.1 g/dL (6.3-8.2)
[2025-01-30 12:27] LABS: INFLUENZA A NEGATIVE (NEGATIVE); INFLUENZA B NEGATIVE (NEGATIVE); RESPIRATORY SYNCTIAL VIRUS NEGATIVE (NEGATIVE); SARS-CoV-2 Xpert Express NEGATIVE (NEGATIVE)
--- NOTE | 2025-01-30 12:43 | XRAY ---
Indication: Wound infection. Comparison: November 18, 2024 3 nonweightbearing views right foot unchanged again demonstrating osteopenia, mild 1st tarsometatarsal/1st MTP degenerative changes, small plantar heel spur, diffuse soft tissue swelling, and extensive scattered vascular calcifications. No new/acute abnormalities.
--- NOTE | 2025-01-30 12:45 | XRAY ---
Indication: Wound infection. Comparison: None 3 nonweightbearing views left foot demonstrates osteopenia, mild 1st MTP degenerative changes, small plantar heel spur, mild diffuse soft tissue swelling, and mild scattered vascular calcifications. No other bony, articular, or soft tissue abnormalities.
[2025-01-30 12:56] LABS: Appearance Clear (Clear); Bacteria None Seen /HPF (None Seen); Bilirubin Negative (Negative); Blood Negative (Negative); Epithelial Cells None Seen /HPF (None Seen); Glucose, Urine 250 mg/dL (Negative); Hyaline Casts NONE SEEN /LPF (0-2); Ketones 15 (Negative); Leukocyte Esterase Negative (Negative); Nitrite Negative (Negative); Protein,Urine Dip 100 (Negative); RBC 0-2 /HPF (0-5); Specific Gravity 1.025 (1.005-1.030); WBC 0-2 /HPF (0-5)
[2025-01-30] MEDS ORDERED: CLINDAMYCIN-D5W 600 MG/50 ML*** 600 MG/50 ML BAG IV ONE (13:12)
[2025-01-30] MEDS: CLINDAMYCIN-D5W 600 MG/50 ML*** 600 MG/50 ML BAG IV STA (13:13)
--- NOTE | 2025-01-30 15:25 | PCM.HP ---
History of Present Illness - Chief Complaint Chief Complaint: weakness Date: 01/30/25 History of Present Illness: is a 79 year old male patient of Dr. Dolan, who is also a [facility], was brought to the emergency department by paramedics due to weakness. He was transported from home and denied chest pain or shortness of breath. His medical history includes diabetes, hypertension, prostate issues, hyperlipidemia, chronic anemia, peripheral neuropathy, and a past stroke. His symptoms have worsened over the past few days. X-rays of the right foot revealed osteopenia with degenerative changes and soft tissue swelling, but no acute abnormalities compared to a previous study from 11/18/2024. The left foot x-ray also showed osteopenia, degenerative changes, and soft tissue swelling, with no prior films for comparison. Laboratory results indicated slight leukocytosis with a left shift, mildly elevated procalcitonin, and elevated lactic acid. The patient was evaluated by a associate software development engineer in the emergency department, and wound and blood cultures were obtai ayesha. He was started on clindamycin, and podiatry to consider bedside debridement IP. Coordination with the [facility] was initiated for observation placement at [facility]. - Review of Systems Constitutional: No Fever, No Chills Eyes: No Symptoms Ears, Nose, & Throat: No Symptoms Respiratory: Cough, No Short Of Breath Cardiac: Edema (BLLE), No Chest Pain, No Syncope Abdominal/Gastrointestinal: No Abdominal Pain, No Nausea, No Vomiting, No Diarrhea Genitourinary Symptoms: No Dysuria Musculoskeletal: No Back Pain, No Neck Pain Skin: Other (BL foot wounds), No Rash Neurological: No Dizziness, No Focal Weakness, No Sensory Changes Psychological: No Symptoms Endocrine: No Symptoms Hematologic/Lymphatic: No Symptoms Immunological/Allergic: No Symptoms Medications & Allergies Home Medications: Home Medication List Folic Acid 1 mg [Folate 1 mg] 1 mg PO DAILY 03/04/24 [History Confirmed 01/30/25] Gabapentin [Neurontin ] 600 mg PO TID 03/04/24 [History Confirmed 01/30/25] Hydroxyurea [Siklos] See Rx Instructions .ROUTE .COMPLEX 03/04/24 [History Confirmed 01/30/25] Metformin HCl 500 mg [Glucophage 500 MG] 1,000 mg PO BID 03/04/24 [History Confirmed 01/30/25] Tamsulosin HCl 0.4 mg [Flomax 0.4 MG] 1 cap PO DAILY 03/04/24 [History Confirmed 01/30/25] Timolol Maleate 0.25% Eye [Timolol 0.25% Opth Nikkie 5 ML] 1 drop .ROUTE BID 03/04/24 [History Confirmed 01/30/25] Aspirin EC 81 mg [Ecotrin 81 mg] 1 tab PO DAILY 01/30/25 [History Confirmed 01/30/25] Atorvastatin Calcium 1 tab PO HS 01/30/25 [History Confirmed 01/30/25] Cholecalciferol (Vitamin D3) [Vitamin D] 5,000 units PO DAILY 01/30/25 [History Confirmed 01/30/25] Cyanocobalamin (Vitamin B-12) [Vitamin B-12] 1 tab PO DAILY 01/30/25 [History Confirmed 01/30/25] Dextromethorphan/Guaifenesin See Rx Instructions .ROUTE .COMPLEX 01/30/25 [History Confirmed 01/30/25] Lisinopril 20 mg [Zestril 20 MG] 1 tab PO DAILY 01/30/25 [History Confirmed 01/30/25] Nutritional Supplement [Breakfast Essentials] 1 packet PO BID 01/30/25 [History Confirmed 01/30/25] Povidone-Iodine Ointment [Povidine Ointment 1 OZ] See Rx Instructions .ROUTE .COMPLEX 01/30/25 [History Confirmed 01/30/25] Sennosides/Docusate Sodium [Docusate Sodium-Sennosides Tab] See Rx Instructions .ROUTE .COMPLEX 01/30/25 [History Confirmed 01/30/25] Sodium Chlor/Hypochlorous Acid [Vashe Solution] See Rx Instructions .ROUTE .COMPLEX 01/30/25 [History Confirmed 01/30/25] Allergies/Adverse Reactions: Allergies Allergy/AdvReac Type Severity Reaction Status Date / Time amoxicillin [From Augmentin] AdvReac Rash Verified 01/30/25 11:18 Beta-Blockers AdvReac Verified 11/18/24 11:36 (Beta-Adrenergic Bloc clavulanic acid AdvReac Rash Verified 01/30/25 11:18 [From Augmentin] hydrochlorothiazide AdvReac Swelling Verified 01/30/25 11:18 - Past Medical History Past Medical History: Yes Neurological History: Stroke Cardiac History: High Cholesterol, Hypertension Endocrine Medical History: Diabetes Type II Comment: blood disorder ,anemia,iqugmiut - Past Surgical History Past Surgical History: No - Social History Smoking Status: Former smoker Exposure to second hand smoke: Yes Alcohol: None Drug Use: none - Social Determinants of Health Will the patient participate in the screening: Yes Do you worry about a steady place to live?: No In the past 12 months,have you had to go without utilities?: No Have you or anyone in your house had to go without enough: No Transportation Issues: No Has anyone in your support network made you feel unsafe?: No - Physical Exam Vital Signs: Vital Signs - 24 hr Temp Pulse Resp BP BP Pulse Ox 01/30/25 14:30 110 H 20 150/59 94 L 01/30/25 14:01 118 H 19 140/83 01/30/25 13:30 120 H 17 132/63 01/30/25 13:00 105 H 17 149/59 93 L 01/30/25 12:30 102 H 25 H 146/62 95 01/30/25 12:00 101 H 16 123/57 93 L 01/30/25 11:33 95 01/30/25 11:31 105 H 17 132/91 95 01/30/25 11:22 104 H 19 149/58 01/30/25 11:11 97.6 F 105 H 16 168/75 96 General Appearance: no apparent distress, alert Neurologic Exam: alert, oriented x 3, cooperative, normal mood/affect, nml cerebellar function, nml station & gait, sensation nml, No motor deficits Eye Exam: PERRL/EOMI, eyes nml inspection Ears, Nose, Throat Exam: normal ENT inspection, TMs normal, pharynx normal, moist mucous membranes Neck Exam: normal inspection, non-tender, supple, full range of motion Respiratory Exam: normal breath sounds, lungs clear, No respiratory distress Cardiovascular Exam: regular rate/rhythm, normal heart sounds, normal peripheral pulses, tachycardia, edema (+ 3 pitting BLLE) Gastrointestinal/Abdomen Exam: soft, normal bowel sounds, No tenderness, No mass Back Exam: normal inspection, normal range of motion, No CVA tenderness, No vertebral tenderness Extremity Exam: normal inspection, normal range of motion, pelvis stable Skin Exam: normal color, warm, dry, No rash Lymphatic Exam: No adenopathy Results - Labs Lab/Micro Results: Lab Results-Last 24 Hours 01/30/25 01/30/25 01/30/25 Range/Units 11:40 11:44 11:44 WBC 9.3 H (4.23-9.07) x10^3/uL RBC 3.15 L (4.63-6.08) x10^6/uL Hgb 11.3 L (13.7-17.5) g/dL Hct 35.2 L (40.1-51.0) % MCV 111.7 H (79.0-92.2) fL MCH 35.9 H (25.7-32.2) pg MCHC 32.1 L (32.3-36.5) g/dL RDW 15.5 H (11.6-14.4) % Plt Count 548 H (163-337) x10^3/uL MPV 9.3 L (9.4-12.4) fL Gran % 80.2 H (34.0-67.9) % Immature Gran % (Auto) 0.9 H (0.001-0.429) % Nucleat RBC Rel Count 0.0 (0.00-0.2) % Eos # (Auto) 0.11 (0.04-0.54) x10^3/uL Immature Gran # (Auto) 0.08 H (0.001-0.031) x10^3u/L Absolute Lymphs (auto) 0.79 L (1.32-3.57) x10^3/uL Absolute Monos (auto) 0.77 (0.30-0.82) x10^3/uL Absolute Nucleated RBC 0.00 (0.00-0.012) x10^3u/L Lymphocytes % 8.5 L (21.8-53.1) % Monocytes % 8.3 (5.3-12.2) % Eosinophils % 1.2 (0.8-7.0) % Basophils % 0.9 (0.2-1.2) % Absolute Granulocytes 7.47 H (1.78-5.38) x10^3/uL Basophils # 0.08 (0.01-0.08) x10^3/uL Sodium 133 L (135-145) mmol/L Potassium 4.7 (3.5-5.1) mmol/L Chloride 98 (98-107) mmol/L Carbon Dioxide 23 (22-30) mmol/L Anion Gap 16.2 H (5-15) MEQ/L BUN 27 H (9-20) mg/dL Creatinine 0.93 (0.66-1.25) mg/dL Estimated GFR 83.5 ML/MIN Glucose 217 H (74-106) mg/dL Lactic Acid 2.6 H (0.4-2.0) Calcium 9.6 (8.4-10.2) mg/dL Magnesium 1.5 L (1.6-2.3) mg/dL Total Bilirubin 0.60 (0.2-1.3) mg/dL AST 68 H (17-59) U/L ALT 25 (0-50) U/L Alkaline Phosphatase 91 (38-126) U/L Troponin I (0.000-0.033) ng/mL Serum Total Protein 7.1 (6.3-8.2) g/dL Albumin 3.6 (3.5-5.0) g/dL Procalcitonin 0.085 H (0.030-0.080) ng/mL Urine Color (Yellow) Urine Appearance (Clear) Urine pH (4.6-8.0) Ur Specific [place] (1.005-1.030) Urine Protein (Negative) Urine Glucose (UA) (Negative) mg/dL Urine Ketones (Negative) Urine Blood (Negative) Urine Nitrite (Negative) Urine Bilirubin (Negative) Urine Urobilinogen (0.2) mg/dL Ur Leukocyte Esterase (Negative) U Hyaline Cast (Auto) (0-2) /LPF Urine Microscopic RBC (0-5) /HPF Urine Microscopic WBC (0-5) /HPF Ur Epithelial Cells (None Seen) /HPF Urine Bacteria (None Seen) /HPF Urine Culture Reflexed (NO) Monoscreen (NEGATIVE) Influenza Type A Ag (NEGATIVE) Influenza Type B Ag (NEGATIVE) RSV (PCR) (NEGATIVE) SARS-CoV-2 (PCR) (NEGATIVE) 01/30/25 01/30/25 01/30/25 Range/Units 11:44 11:44 11:44 WBC (4.23-9.07) x10^3/uL RBC (4.63-6.08) x10^6/uL Hgb (13.7-17.5) g/dL Hct (40.1-51.0) % MCV (79.0-92.2) fL MCH (25.7-32.2) pg MCHC (32.3-36.5) g/dL RDW (11.6-14.4) % Plt Count (163-337) x10^3/uL MPV (9.4-12.4) fL Gran % (34.0-67.9) % Immature Gran % (Auto) (0.001-0.429) % Nucleat RBC Rel Count (0.00-0.2) % Eos # (Auto) (0.04-0.54) x10^3/uL Immature Gran # (Auto) (0.001-0.031) x10^3u/L Absolute Lymphs (auto) (1.32-3.57) x10^3/uL Absolute Monos (auto) (0.30-0.82) x10^3/uL Absolute Nucleated RBC (0.00-0.012) x10^3u/L Lymphocytes % (21.8-53.1) % Monocytes % (5.3-12.2) % Eosinophils % (0.8-7.0) % Basophils % (0.2-1.2) % Absolute Granulocytes (1.78-5.38) x10^3/uL Basophils # (0.01-0.08) x10^3/uL Sodium (135-145) mmol/L Potassium (3.5-5.1) mmol/L Chloride (98-107) mmol/L Carbon Dioxide (22-30) mmol/L Anion Gap (5-15) MEQ/L BUN (9-20) mg/dL Creatinine (0.66-1.25) mg/dL Estimated GFR ML/MIN Glucose (74-106) mg/dL Lactic Acid (0.4-2.0) Calcium (8.4-10.2) mg/dL Magnesium (1.6-2.3) mg/dL Total Bilirubin (0.2-1.3) mg/dL AST (17-59) U/L ALT (0-50) U/L Alkaline Phosphatase (38-126) U/L Troponin I < 0.012 (0.000-0.033) ng/mL Serum Total Protein (6.3-8.2) g/dL Albumin (3.5-5.0) g/dL Procalcitonin (0.030-0.080) ng/mL Urine Color (Yellow) Urine Appearance (Clear) Urine pH (4.6-8.0) Ur Specific [place] (1.005-1.030) Urine Protein (Negative) Urine Glucose (UA) (Negative) mg/dL Urine Ketones (Negative) Urine Blood (Negative) Urine Nitrite (Negative) Urine Bilirubin (Negative) Urine Urobilinogen (0.2) mg/dL Ur Leukocyte Esterase (Negative) U Hyaline Cast (Auto) (0-2) /LPF Urine Microscopic RBC (0-5) /HPF Urine Microscopic WBC (0-5) /HPF Ur Epithelial Cells (None Seen) /HPF Urine Bacteria (None Seen) /HPF Urine Culture Reflexed (NO) Monoscreen NEGATIVE (NEGATIVE) Influenza Type A Ag NEGATIVE (NEGATIVE) Influenza Type B Ag NEGATIVE (NEGATIVE) RSV (PCR) NEGATIVE (NEGATIVE) SARS-CoV-2 (PCR) NEGATIVE (NEGATIVE) 01/30/25 01/30/25 Range/Units 12:40 13:49 WBC (4.23-9.07) x10^3/uL RBC (4.63-6.08) x10^6/uL Hgb (13.7-17.5) g/dL Hct (40.1-51.0) % MCV (79.0-92.2) fL MCH (25.7-32.2) pg MCHC (32.3-36.5) g/dL RDW (11.6-14.4) % Plt Count (163-337) x10^3/uL MPV (9.4-12.4) fL Gran % (34.0-67.9) % Immature Gran % (Auto) (0.001-0.429) % Nucleat RBC Rel Count (0.00-0.2) % Eos # (Auto) (0.04-0.54) x10^3/uL Immature Gran # (Auto) (0.001-0.031) x10^3u/L Absolute Lymphs (auto) (1.32-3.57) x10^3/uL Absolute Monos (auto) (0.30-0.82) x10^3/uL Absolute Nucleated RBC (0.00-0.012) x10^3u/L Lymphocytes % (21.8-53.1) % Monocytes % (5.3-12.2) % Eosinophils % (0.8-7.0) % Basophils % (0.2-1.2) % Absolute Granulocytes (1.78-5.38) x10^3/uL Basophils # (0.01-0.08) x10^3/uL Sodium (135-145) mmol/L Potassium (3.5-5.1) mmol/L Chloride (98-107) mmol/L Carbon Dioxide (22-30) mmol/L Anion Gap (5-15) MEQ/L BUN (9-20) mg/dL Creatinine (0.66-1.25) mg/dL Estimated GFR ML/MIN Glucose (74-106) mg/dL Lactic Acid 3.1 H (0.4-2.0) Calcium (8.4-10.2) mg/dL Magnesium (1.6-2.3) mg/dL Total Bilirubin (0.2-1.3) mg/dL AST (17-59) U/L ALT (0-50) U/L Alkaline Phosphatase (38-126) U/L Troponin I (0.000-0.033) ng/mL Serum Total Protein (6.3-8.2) g/dL Albumin (3.5-5.0) g/dL Procalcitonin (0.030-0.080) ng/mL Urine Color Yellow (Yellow) Urine Appearance Clear (Clear) Urine pH 6.0 (4.6-8.0) Ur Specific [place] 1.025 (1.005-1.030) Urine Protein 100 A (Negative) Urine Glucose (UA) 250 A (Negative) mg/dL Urine Ketones 15 A (Negative) Urine Blood Negative (Negative) Urine Nitrite Negative (Negative) Urine Bilirubin Negative (Negative) Urine Urobilinogen 1.0 A (0.2) mg/dL Ur Leukocyte Esterase Negative (Negative) U Hyaline Cast (Auto) NONE SEEN (0-2) /LPF Urine Microscopic RBC 0-2 (0-5) /HPF Urine Microscopic WBC 0-2 (0-5) /HPF Ur Epithelial Cells None Seen (None Seen) /HPF Urine Bacteria None Seen (None Seen) /HPF Urine Culture Reflexed ORDERED SEPARATELY (NO) Monoscreen (NEGATIVE) Influenza Type A Ag (NEGATIVE) Influenza Type B Ag (NEGATIVE) RSV (PCR) (NEGATIVE) SARS-CoV-2 (PCR) (NEGATIVE) - Radiology Impressions Radiology Exams & Impressions: Radiology Procedures Category Date Time Status CHEST 1 VIEW (PORTABLE) Stat Exams 01/30/25 11:17 Completed FOOT (MINIMUM 3 VIEWS) Stat Exams 01/30/25 12:07 Completed FOOT (MINIMUM 3 VIEWS) Stat Exams 01/30/25 12:08 Completed - Other Procedures and Tests Respiratory Therapy 01/30/25 14:16 EKG STAT Assessment/Plan (1) Diabetic foot ulcers Current Visit: Yes Status: Acute Assessment & Plan: - Podiatry consulted in ER- note reviewed and agree with plan of care - Wound and BC x2 completed in ER - Clindamycin started in ER - Continue - Added Levaquin daily IV - Radiology results reviewed - Probiotic Code(s): E11.621 - TYPE 2 DIABETES MELLITUS WITH FOOT ULCER; L97.509 - NON- PRESSURE CHRONIC ULCER OTH PRT UNSP FOOT W UNSP SEVERITY (2) Lactic acidosis Current Visit: Yes Status: Acute Assessment & Plan: - LA 2.6- trend - IV fluids gave in ER- cont - 2:2 Diabetic foot wounds - repeat 3.1- trend - Pt has a hx of CHF and metformin use- IVF being given- will recheck in AM - hold metformin Code(s): E87.20 - ACIDOSIS, UNSPECIFIED (3) Leukocytosis Current Visit: Yes Status: Acute Assessment & Plan: - WBC 9.3- trend - 2:2 Diabetic foot wounds Code(s): D72.829 - ELEVATED WHITE BLOOD CELL COUNT, UNSPECIFIED (4) Dehydration Current Visit: Yes Status: Acute Assessment & Plan: - anion gap 16.2 - IVF Code(s): E86.0 - DEHYDRATION (5) Weakness Current Visit: Yes Status: Acute Assessment & Plan: - PT eval and treat Code(s): R53.1 - WEAKNESS (6) BPH (benign prostatic hyperplasia) Current Visit: Yes Status: Chronic Qualifiers: Lower urinary tract symptom presence: symptoms absent Qualified Code(s): N40.0 - Benign prostatic hyperplasia without lower urinary tract symptoms Assessment & Plan: - Continue flomax Code(s): N40.0 - BENIGN PROSTATIC HYPERPLASIA WITHOUT LOWER URINRY TRACT SYMP (7) HTN (hypertension) Current Visit: Yes Status: Chronic Qualifiers: Hypertension type: secondary to endocrine disorders Qualified Code(s): I15.2 - Hypertension secondary to endocrine disorders Assessment & Plan: - BP stable continue home meds Code(s): I10 - ESSENTIAL (PRIMARY) HYPERTENSION (8) Type II diabetes mellitus Current Visit: Yes Status: Chronic Qualifiers: Diabetes mellitus vermin exterminator insulin use: without correction use Diabetes mellitus complication status: with circulatory complication Diabetes mellitus complication detail: with peripheral angiopathy without gangrene Qualified Code(s): E11.51 - Type 2 diabetes mellitus with diabetic peripheral angiopathy without gangrene Assessment & Plan: -accuchecks ac/hs - humalog s.s - A1C pending (9) Hyperlipidemia Current Visit: Yes Status: Chronic Qualifiers: Hyperlipidemia type: unspecified Qualified Code(s): E78.5 - Hyperlipidemia, unspecified Assessment & Plan: - Continue statin Code(s): E78.5 - HYPERLIPIDEMIA, UNSPECIFIED (10) CHF (congestive heart failure) Current Visit: No Status: Chronic Qualifiers: Heart failure chronicity: chronic Assessment & Plan: - CXR does not shows acute concern - Code(s): I50.9 - HEART FAILURE, UNSPECIFIED (11) Venous insufficiency of both lower extremities Current Visit: Yes Status: Chronic Assessment & Plan: - Adds to complexity VTE:SCD's PPI:protonix Next of KIN: D/C plan: 1-2 days Code status: Full Code(s): I87.2 - VENOUS INSUFFICIENCY (CHRONIC) (PERIPHERAL) Telemedicine Encounter - Telemedicine Encounter Telemedicine Encounter: "The entirety of this encounter was performed via Telemedicine" This visit was performed using real-time audio and video connection between my location and thepatients locationwith the assistance of a surrogateat the patients location. Written or verbal consent was obtained from the patient/guardian to perform this visit [facility] technology. Any patient questions regarding the telemedicine interaction were answered.
[2025-01-30] MEDS ORDERED: Zofran 4 MG/2 ML VIAL IV PRN (15:35)
[2025-01-30] MEDS ORDERED: HUMULIN R SQ PRN (15:35)
--- NOTE | 2025-01-30 16:06 | PCM.CONS ---
Podiatry HPI - Consult Consulting Provider: MAMI MEYER DPM - HPI History of Present Illness: This is a 79-year-old white male patient of Dr. Dolan and is a [facility] patient as well who was brought into the supervisor sunglasses service with the complaint of weakness. Patient was transported from home. Patient denies chest pain. He denies shortness of breath. Patient is diabetic, has a history of hypertension, prostate issues, hyperlipidemia, chronic anemia, peripheral neuropathy and has had a stroke in the past. His symptoms have worsened over the last few days. he was consulted to my service for wounds to the bilateral lower extremity with venous insufficency. Patient is hard of hearing. Most subjective history obtained through . Medications & Allergies Home Medications: Home Medication List Folic Acid 1 mg [Folate 1 mg] 1 mg PO DAILY 03/04/24 [History Confirmed 01/30/25] Gabapentin [Neurontin ] 600 mg PO TID 03/04/24 [History Confirmed 01/30/25] Hydroxyurea [Siklos] See Rx Instructions .ROUTE .COMPLEX 03/04/24 [History Confirmed 01/30/25] Metformin HCl 500 mg [Glucophage 500 MG] 1,000 mg PO BID 03/04/24 [History Confirmed 01/30/25] Tamsulosin HCl 0.4 mg [Flomax 0.4 MG] 1 cap PO DAILY 03/04/24 [History Confirmed 01/30/25] Timolol Maleate 0.25% Eye [Timolol 0.25% Opth [place] 5 ML] 1 drop .ROUTE BID 03/04/24 [History Confirmed 01/30/25] Aspirin EC 81 mg [Ecotrin 81 mg] 1 tab PO DAILY 01/30/25 [History Confirmed 01/30/25] Atorvastatin Calcium 1 tab PO HS 01/30/25 [History Confirmed 01/30/25] Cholecalciferol (Vitamin D3) [Vitamin D] 5,000 units PO DAILY 01/30/25 [History Confirmed 01/30/25] Cyanocobalamin (Vitamin B-12) [Vitamin B-12] 1 tab PO DAILY 01/30/25 [History Confirmed 01/30/25] Dextromethorphan/Guaifenesin See Rx Instructions .ROUTE .COMPLEX 01/30/25 [Hist ory Confirmed 01/30/25] Lisinopril 20 mg [Zestril 20 MG] 1 tab PO DAILY 01/30/25 [History Confirmed 01/30/25] Nutritional Supplement [Breakfast Essentials] 1 packet PO BID 01/30/25 [History Confirmed 01/30/25] Povidone-Iodine Ointment [Povidine Ointment 1 OZ] See Rx Instructions .ROUTE .COMPLEX 01/30/25 [History Confirmed 01/30/25] Sennosides/Docusate Sodium [Docusate Sodium-Sennosides Tab] See Rx Instructions .ROUTE .COMPLEX 01/30/25 [History Confirmed 01/30/25] Sodium Chlor/Hypochlorous Acid [Vashe Solution] See Rx Instructions .ROUTE .COMPLEX 01/30/25 [History Confirmed 01/30/25] Allergies/Adverse Reactions: Allergies Allergy/AdvReac Type Severity Reaction Status Date / Time amoxicillin [From Augmentin] AdvReac Rash Verified 01/30/25 11:18 Beta-Blockers AdvReac Verified 11/18/24 11:36 (Beta-Adrenergic Bloc clavulanic acid AdvReac Rash Verified 01/30/25 11:18 [From Augmentin] hydrochlorothiazide AdvReac Swelling Verified 01/30/25 11:18 - Past Medical History Past Medical History: Yes Neurological History: Stroke Cardiac History: High Cholesterol, Hypertension Endocrine Medical History: Diabetes Type II Comment: blood disorder ,anemia,[place] - Past Surgical History Past Surgical History: No - Social History Smoking Status: Former smoker Exposure to second hand smoke: Yes Alcohol: None Drug Use: none - Social Determinants of Health Will the patient participate in the screening: Yes Do you worry about a steady place to live?: No In the past 12 months,have you had to go without utilities?: No Have you or anyone in your house had to go without enough: No Transportation Issues: No Has anyone in your support network made you feel unsafe?: No Physical Exam - Vascular Edema: Pitting Edema Degree: 2+ Skin: Supple, not atrophic Skin Temperature: Warm to touch - Muscular Muscle Strength: 5/5 on all 4 quadrants - Narrative Narrative Physical Exam: Podiatry Physical Exam Results - Labs Lab/Micro Results: Lab Results-Last 24 Hours 01/30/25 01/30/25 01/30/25 Range/Units 11:40 11:44 11:44 WBC 9.3 H (4.23-9.07) x10^3/uL RBC 3.15 L (4.63-6.08) x10^6/uL Hgb 11.3 L (13.7-17.5) g/dL Hct 35.2 L (40.1-51.0) % MCV 111.7 H (79.0-92.2) fL MCH 35.9 H (25.7-32.2) pg MCHC 32.1 L (32.3-36.5) g/dL RDW 15.5 H (11.6-14.4) % Plt Count 548 H (163-337) x10^3/uL MPV 9.3 L (9.4-12.4) fL Gran % 80.2 H (34.0-67.9) % Immature Gran % (Auto) 0.9 H (0.001-0.429) % Nucleat RBC Rel Count 0.0 (0.00-0.2) % Eos # (Auto) 0.11 (0.04-0.54) x10^3/uL Immature Gran # (Auto) 0.08 H (0.001-0.031) x10^3u/L Absolute Lymphs (auto) 0.79 L (1.32-3.57) x10^3/uL Absolute Monos (auto) 0.77 (0.30-0.82) x10^3/uL Absolute Nucleated RBC 0.00 (0.00-0.012) x10^3u/L Lymphocytes % 8.5 L (21.8-53.1) % Monocytes % 8.3 (5.3-12.2) % Eosinophils % 1.2 (0.8-7.0) % Basophils % 0.9 (0.2-1.2) % Absolute Granulocytes 7.47 H (1.78-5.38) x10^3/uL Basophils # 0.08 (0.01-0.08) x10^3/uL Sodium 133 L (135-145) mmol/L Potassium 4.7 (3.5-5.1) mmol/L Chloride 98 (98-107) mmol/L Carbon Dioxide 23 (22-30) mmol/L Anion Gap 16.2 H (5-15) MEQ/L BUN 27 H (9-20) mg/dL Creatinine 0.93 (0.66-1.25) mg/dL Estimated GFR 83.5 ML/MIN Glucose 217 H (74-106) mg/dL Lactic Acid 2.6 H (0.4-2.0) Calcium 9.6 (8.4-10.2) mg/dL Magnesium 1.5 L (1.6-2.3) mg/dL Total Bilirubin 0.60 (0.2-1.3) mg/dL AST 68 H (17-59) U/L ALT 25 (0-50) U/L Alkaline Phosphatase 91 (38-126) U/L Troponin I (0.000-0.033) ng/mL Serum Total Protein 7.1 (6.3-8.2) g/dL Albumin 3.6 (3.5-5.0) g/dL Procalcitonin 0.085 H (0.030-0.080) ng/mL Urine Color (Yellow) Urine Appearance (Clear) Urine pH (4.6-8.0) Ur Specific [place] (1.005-1.030) Urine Protein (Negative) Urine Glucose (UA) (Negative) mg/dL Urine Ketones (Negative) Urine Blood (Negative) Urine Nitrite (Negative) Urine Bilirubin (Negative) Urine Urobilinogen (0.2) mg/dL Ur Leukocyte Esterase (Negative) U Hyaline Cast (Auto) (0-2) /LPF Urine Microscopic RBC (0-5) /HPF Urine Microscopic WBC (0-5) /HPF Ur Epithelial Cells (None Seen) /HPF Urine Bacteria (None Seen) /HPF Urine Culture Reflexed (NO) Monoscreen (NEGATIVE) Influenza Type A Ag (NEGATIVE) Influenza Type B Ag (NEGATIVE) RSV (PCR) (NEGATIVE) SARS-CoV-2 (PCR) (NEGATIVE) 01/30/25 01/30/25 01/30/25 Range/Units 11:44 11:44 11:44 WBC (4.23-9.07) x10^3/uL RBC (4.63-6.08) x10^6/uL Hgb (13.7-17.5) g/dL Hct (40.1-51.0) % MCV (79.0-92.2) fL MCH (25.7-32.2) pg MCHC (32.3-36.5) g/dL RDW (11.6-14.4) % Plt Count (163-337) x10^3/uL MPV (9.4-12.4) fL Gran % (34.0-67.9) % Immature Gran % (Auto) (0.001-0.429) % Nucleat RBC Rel Count (0.00-0.2) % Eos # (Auto) (0.04-0.54) x10^3/uL Immature Gran # (Auto) (0.001-0.031) x10^3u/L Absolute Lymphs (auto) (1.32-3.57) x10^3/uL Absolute Monos (auto) (0.30-0.82) x10^3/uL Absolute Nucleated RBC (0.00-0.012) x10^3u/L Lymphocytes % (21.8-53.1) % Monocytes % (5.3-12.2) % Eosinophils % (0.8-7.0) % Basophils % (0.2-1.2) % Absolute Granulocytes (1.78-5.38) x10^3/uL Basophils # (0.01-0.08) x10^3/uL Sodium (135-145) mmol/L Potassium (3.5-5.1) mmol/L Chloride (98-107) mmol/L Carbon Dioxide (22-30) mmol/L Anion Gap (5-15) MEQ/L BUN (9-20) mg/dL Creatinine (0.66-1.25) mg/dL Estimated GFR ML/MIN Glucose (74-106) mg/dL Lactic Acid (0.4-2.0) Calcium (8.4-10.2) mg/dL Magnesium (1.6-2.3) mg/dL Total Bilirubin (0.2-1.3) mg/dL AST (17-59) U/L ALT (0-50) U/L Alkaline Phosphatase (38-126) U/L Troponin I < 0.012 (0.000-0.033) ng/mL Serum Total Protein (6.3-8.2) g/dL Albumin (3.5-5.0) g/dL Procalcitonin (0.030-0.080) ng/mL Urine Color (Yellow) Urine Appearance (Clear) Urine pH (4.6-8.0) Ur Specific [place] (1.005-1.030) Urine Protein (Negative) Urine Glucose (UA) (Negative) mg/dL Urine Ketones (Negative) Urine Blood (Negative) Urine Nitrite (Negative) Urine Bilirubin (Negative) Urine Urobilinogen (0.2) mg/dL Ur Leukocyte Esterase (Negative) U Hyaline Cast (Auto) (0-2) /LPF Urine Microscopic RBC (0-5) /HPF Urine Microscopic WBC (0-5) /HPF Ur Epithelial Cells (None Seen) /HPF Urine Bacteria (None Seen) /HPF Urine Culture Reflexed (NO) Monoscreen NEGATIVE (NEGATIVE) Influenza Type A Ag NEGATIVE (NEGATIVE) Influenza Type B Ag NEGATIVE (NEGATIVE) RSV (PCR) NEGATIVE (NEGATIVE) SARS-CoV-2 (PCR) NEGATIVE (NEGATIVE) 01/30/25 01/30/25 01/30/25 Range/Units 12:40 15:00 15:05 WBC (4.23-9.07) x10^3/uL RBC (4.63-6.08) x10^6/uL Hgb (13.7-17.5) g/dL Hct (40.1-51.0) % MCV (79.0-92.2) fL MCH (25.7-32.2) pg MCHC (32.3-36.5) g/dL RDW (11.6-14.4) % Plt Count (163-337) x10^3/uL MPV (9.4-12.4) fL Gran % (34.0-67.9) % Immature Gran % (Auto) (0.001-0.429) % Nucleat RBC Rel Count (0.00-0.2) % Eos # (Auto) (0.04-0.54) x10^3/uL Immature Gran # (Auto) (0.001-0.031) x10^3u/L Absolute Lymphs (auto) (1.32-3.57) x10^3/uL Absolute Monos (auto) (0.30-0.82) x10^3/uL Absolute Nucleated RBC (0.00-0.012) x10^3u/L Lymphocytes % (21.8-53.1) % Monocytes % (5.3-12.2) % Eosinophils % (0.8-7.0) % Basophils % (0.2-1.2) % Absolute Granulocytes (1.78-5.38) x10^3/uL Basophils # (0.01-0.08) x10^3/uL Sodium (135-145) mmol/L Potassium (3.5-5.1) mmol/L Chloride (98-107) mmol/L Carbon Dioxide (22-30) mmol/L Anion Gap (5-15) MEQ/L BUN (9-20) mg/dL Creatinine (0.66-1.25) mg/dL Estimated GFR ML/MIN Glucose (74-106) mg/dL Lactic Acid 3.1 H (0.4-2.0) Calcium (8.4-10.2) mg/dL Magnesium (1.6-2.3) mg/dL Total Bilirubin (0.2-1.3) mg/dL AST (17-59) U/L ALT (0-50) U/L Alkaline Phosphatase (38-126) U/L Troponin I < 0.012 (0.000-0.033) ng/mL Serum Total Protein (6.3-8.2) g/dL Albumin (3.5-5.0) g/dL Procalcitonin (0.030-0.080) ng/mL Urine Color Yellow (Yellow) Urine Appearance Clear (Clear) Urine pH 6.0 (4.6-8.0) Ur Specific [place] 1.025 (1.005-1.030) Urine Protein 100 A (Negative) Urine Glucose (UA) 250 A (Negative) mg/dL Urine Ketones 15 A (Negative) Urine Blood Negative (Negative) Urine Nitrite Negative (Negative) Urine Bilirubin Negative (Negative) Urine Urobilinogen 1.0 A (0.2) mg/dL Ur Leukocyte Esterase Negative (Negative) U Hyaline Cast (Auto) NONE SEEN (0-2) /LPF Urine Microscopic RBC 0-2 (0-5) /HPF Urine Microscopic WBC 0-2 (0-5) /HPF Ur Epithelial Cells None Seen (None Seen) /HPF Urine Bacteria None Seen (None Seen) /HPF Urine Culture Reflexed ORDERED SEPARATELY (NO) Monoscreen (NEGATIVE) Influenza Type A Ag (NEGATIVE) Influenza Type B Ag (NEGATIVE) RSV (PCR) (NEGATIVE) SARS-CoV-2 (PCR) (NEGATIVE) - Radiology Impressions Radiology Exams & Impressions: Radiology Procedures Category Date Time Status CHEST 1 VIEW (PORTABLE) Stat Exams 01/30/25 11:17 Completed FOOT (MINIMUM 3 VIEWS) Stat Exams 01/30/25 12:07 Completed FOOT (MINIMUM 3 VIEWS) Stat Exams 01/30/25 12:08 Completed Assessment/Plan (1) Venous insufficiency of both lower extremities Current Visit: Yes Status: Acute Assessment & Plan: Initial patient examination and evaluation Radiographs reviewed with moderate bone demineralization however no obvious indications of infection to level of bone. Patient with venous insufficiency and diabetic foot ulceration Cultures obtained at bedside in ED Will plan for bilateral compression therapy. Hold on debridement of wounds until non invasive studies obtained. Would like to obtain Non invasive vascular studies due to year of non healing and plan for outpatient re-vascularization. Will follow with you. Code(s): I87.2 - VENOUS INSUFFICIENCY (CHRONIC) (PERIPHERAL) (2) Diabetic foot ulcers Current Visit: Yes Status: Acute Code(s): E11.621 - TYPE 2 DIABETES MELLITUS WITH FOOT ULCER; L97.509 - NON-PRESSURE CHRONIC ULCER OTH PRT UNSP FOOT W UNSP SEVERITY (3) Weakness Current Visit: Yes Status: Acute Code(s): R53.1 - WEAKNESS (4) Cellulitis of right foot Current Visit: No Status: Acute Code(s): L03.115 - CELLULITIS OF RIGHT LOWER LIMB (5) Generalized weakness Current Visit: No Status: Acute Code(s): R53.1 - WEAKNESS (6) Toe infection Current Visit: No Status: Acute Code(s): L08.9 - LOCAL INFECTION OF THE SKIN AND SUBCUTANEOUS TISSUE, UNSP
[2025-01-30] MEDS ORDERED: Senokot-S Tablet PO PRN (16:54)
[2025-01-30] MEDS: HUMALOG SQ PRN (17:15)
[2025-01-30] MEDS ORDERED: MEDICATION INTERVENTION MC SCH ×3 (17:45)
[2025-01-30] MEDS: MAGNESIUM SULF 2 G/50 ML BAG 2 GM/50 ML PIGGYBACK IV ONE (18:39)
[2025-01-30] MEDS: TYLENOL 325 MG PO PRN (18:39)
[2025-01-30] MEDS: CLINDAMYCIN-D5W 600 MG/50 ML*** 600 MG/50 ML BAG IV SCH (21:51)
[2025-01-30] MEDS ORDERED: LEVOFLOXACIN 750MG/150ML D5W 750 MG/150 ML BAG IV SCH (22:00)
[2025-01-30] MEDS ORDERED: NON-FORMULARY ITEM (Atorvastatin Calcium [Atorvastatin Calcium] 20 MG Tablet) PO SCH (22:00)
[2025-01-30] MEDS ORDERED: NEURONTIN PO SCH (22:00)
[2025-01-30] MEDS: COSOPT OPHTHALMIC 10 ML OP SCH (22:26)
[2025-01-30] MEDS: ZOCOR 20MG PO SCH (22:30)
[2025-01-30] MEDS: Neurontin PO SCH (22:30)
[2025-01-30] MEDS: Flomax 0.4 MG PO SCH (22:30)
[2025-01-30] MEDS: Levaquin 250MG/50ML D5W 250 MG/50 ML BAG IV SCH (22:30)
[2025-01-30] MEDS: LIPITOR 40MG PO SCH (22:41)
[2025-01-30] MEDS: Levofloxacin 500MG/100ML D5W 500 MG/100 ML BAG IV SCH (23:19)
[2025-01-31 04:56] LABS: BASOPHIL % 0.9 % (0.2-1.2); Basophil (Absolute #) 0.07 x10^3/uL (0.01-0.08); Eosinophil % 1.9 % (0.8-7.0); Eosinophil (Absolute #) 0.15 x10^3/uL (0.04-0.54); Hematocrit 30.8 % (40.1-51.0); Hemoglobin 9.9 g/dL (13.7-17.5); IMMATURE GRAN # 0.06 x10^3u/L (0.001-0.031); IMMATURE GRAN % 0.7 % (0.001-0.429); Lymphocyte (Absolute #) 1.05 x10^3/uL (1.32-3.57); Lymphocytes % 13.1 % (21.8-53.1); Mean Cell Volume 109.6 fL (79.0-92.2); Mean Corpuscular Hemoglobin 35.2 pg (25.7-32.2); Mean Corpuscular Hgb Concent. 32.1 g/dL (32.3-36.5); Mean Platelet Volume 9.5 fL (9.4-12.4); Neutrophil % 73.4 % (34.0-67.9); Platelet Count 412 x10^3/uL (163-337); Red Blood Count 2.81 x10^6/uL (4.63-6.08); Red Cell Distribution Width 15.3 % (11.6-14.4)
[2025-01-31 05:21] LABS: ALBUMIN 3.2 g/dL (3.5-5.0); ANION GAP 12.4 MEQ/L (5-15); BILIRUBIN,TOTAL 0.4 mg/dL (0.2-1.3); Calcium 8.8 mg/dL (8.4-10.2); Creatinine 1 0.97 mg/dL (0.66-1.25); EST GLOMERULAR FILTRATION RATE 79.4 ML/MIN; Potassium 3.9 mmol/L (3.5-5.1); Total Protein 6.5 g/dL (6.3-8.2)
[2025-01-31] MEDS ORDERED: NON-FORMULARY ITEM (Cyanocobalamin (Vitamin B-12) [Vitamin B-12] 1,000 MCG Tablet) PO SCH (10:00)
--- NOTE | 2025-01-31 10:23 | PCM.NOTE ---
Date and Time: 01/31/[address] [facility] Subjective Assessment: 01/30/25 is a 79 year old male patient of Dr. Dolan, who is also a [facility], was brought to the emergency department by paramedics due to weakness. He was transported from home and denied chest pain or shortness of breath. His medical history includes diabetes, hypertension, prostate issues, hyperlipidemia, chronic anemia, peripheral neuropathy, and a past stroke. His symptoms have worsened over the past few days. X-rays of the right foot revealed osteopenia with degenerative changes and soft tissue swelling, but no acute abnormalities compared to a previous study from 11/18/2024. The left foot x-ray also showed osteopenia, degenerative changes, and soft tissue swelling, with no prior films for comparison. Laboratory results indicated slight leukocytosis with a left shift, mildly elevated procalcitonin, and elevated lactic acid. The patient was evaluated by a scenario writer in the emergency department, and wound and blood cultures were obtained. He was started on clindamycin, and podiatry to consider bedside debridement IP. Coordination with the [facility] was initiated for observation placement at [facility]. 01/31/25 Pt resting in bed. He is to have a venous duplex today. IVF stopped as anion gap OK. WBC WNL. Podiatry consulted for wounds of BL feet. Continue IV antibiotics. Wound cultures and blood cultures x2 pending. Temp of 99.5 last night. Pt to eval for weakness and home needs. Pt denies any further concerns at this time. - Review of Systems Constitutional: No Fever, No Chills Eyes: No Symptoms Ears, Nose, & Throat: No Symptoms Respiratory: No Cough, No Short Of Breath Cardiac: No Chest Pain, No Edema, No Syncope Abdominal/Gastrointestinal: No Abdominal Pain, No Nausea, No Vomiting, No Diarrhea Genitourinary Symptoms: No Dysuria Musculoskeletal: No Back Pain, No Neck Pain Skin: Skin Lesions (BL feet/toes), No Rash Neurological: No Dizziness, No Focal Weakness, No Sensory Changes Psychological: No Symptoms Endocrine: No Symptoms Hematologic/Lymphatic: No Symptoms Immunological/Allergic: No Symptoms Objective Exam General Appearance: no apparent distress, alert Neurologic Exam: alert, oriented x 3, cooperative, normal mood/affect, nml cerebellar function, sensation nml, No motor deficits Skin Exam: normal color, warm, dry Eye Exam: PERRL, EOMI, eyes nml inspection Ears, Nose, Throat Exam: normal ENT inspection, pharynx normal, moist mucous membranes Neck Exam: normal inspection, non-tender, supple, full range of motion Respiratory Exam: normal breath sounds, lungs clear, No respiratory distress Cardiovascular Exam: regular rate/rhythm, normal heart sounds Gastrointestinal/Abdomen Exam: soft, No tenderness, No mass Extremity Exam: normal inspection, normal range of motion, pedal edema, tenderness, other (wounds of BL feet covered) Back Exam: normal inspection, normal range of motion, No CVA tenderness, No vertebral tenderness Male Genitalia Exam: deferred Rectal Exam: deferred Objective Data Vital Signs: Vital Signs - 24 hr Temp Pulse Resp BP BP Pulse Ox 01/31/25 07:35 97.8 F 97 H 20 145/78 92 L 01/31/25 04:00 97.9 F 92 H 18 131/56 93 L 01/30/25 23:35 98.6 F 88 16 115/55 94 L 01/30/25 19:34 99.5 F 120 H 16 126/60 93 L 01/30/25 16:00 97.5 F 106 H 17 166/70 91 L 01/30/25 15:00 112 H 16 129/63 95 01/30/25 14:30 110 H 20 150/59 94 L 01/30/25 14:01 118 H 19 140/83 01/30/25 13:30 120 H 17 132/63 01/30/25 13:00 105 H 17 149/59 93 L 01/30/25 12:30 102 H 25 H 146/62 95 01/30/25 12:00 101 H 16 123/57 93 L 01/30/25 11:33 95 01/30/25 11:31 105 H 17 132/91 95 01/30/25 11:22 104 H 19 149/58 01/30/25 11:11 97.6 F 105 H 16 168/75 96 Pain Assessment - Last Documented Pain Intensity 0 Pain Scale Used 0-10 Pain Scale Intake and Output: Intake & Output 01/28/25 01/29/25 01/30/25 01/31/25 11:59 11:59 11:59 11:59 Intake Total 1547 Balance 1547 Weight 90.5 kg 90.2 kg Lab Results: Lab Results-Last 24 Hours 01/30/25 01/30/25 01/30/25 Range/Units 11:40 11:44 11:44 WBC 9.3 H (4.23-9.07) x10^3/uL RBC 3.15 L (4.63-6.08) x10^6/uL Hgb 11.3 L (13.7-17.5) g/dL Hct 35.2 L (40.1-51.0) % MCV 111.7 H (79.0-92.2) fL MCH 35.9 H (25.7-32.2) pg MCHC 32.1 L (32.3-36.5) g/dL RDW 15.5 H (11.6-14.4) % Plt Count 548 H (163-337) x10^3/uL MPV 9.3 L (9.4-12.4) fL Gran % 80.2 H (34.0-67.9) % Immature Gran % (Auto) 0.9 H (0.001-0.429) % Nucleat RBC Rel Count 0.0 (0.00-0.2) % Eos # (Auto) 0.11 (0.04-0.54) x10^3/uL Immature Gran # (Auto) 0.08 H (0.001-0.031) x10^3u/L Absolute Lymphs (auto) 0.79 L (1.32-3.57) x10^3/uL Absolute Monos (auto) 0.77 (0.30-0.82) x10^3/uL Absolute Nucleated RBC 0.00 (0.00-0.012) x10^3u/L Lymphocytes % 8.5 L (21.8-53.1) % Monocytes % 8.3 (5.3-12.2) % Eosinophils % 1.2 (0.8-7.0) % Basophils % 0.9 (0.2-1.2) % Absolute Granulocytes 7.47 H (1.78-5.38) x10^3/uL Basophils # 0.08 (0.01-0.08) x10^3/uL Sodium 133 L (135-145) mmol/L Potassium 4.7 (3.5-5.1) mmol/L Chloride 98 (98-107) mmol/L Carbon Dioxide 23 (22-30) mmol/L Anion Gap 16.2 H (5-15) MEQ/L BUN 27 H (9-20) mg/dL Creatinine 0.93 (0.66-1.25) mg/dL Estimated GFR 83.5 ML/MIN Glucose 217 H (74-106) mg/dL POC Glucometer (74 to 106) mg/dL Hemoglobin A1c (4.5-6.0) % Lactic Acid 2.6 H (0.4-2.0) Calcium 9.6 (8.4-10.2) mg/dL Magnesium 1.5 L (1.6-2.3) mg/dL Total Bilirubin 0.60 (0.2-1.3) mg/dL AST 68 H (17-59) U/L ALT 25 (0-50) U/L Alkaline Phosphatase 91 (38-126) U/L Troponin I (0.000-0.033) ng/mL NT-Pro-B Natriuret Pep (<300) pg/mL Serum Total Protein 7.1 (6.3-8.2) g/dL Albumin 3.6 (3.5-5.0) g/dL Procalcitonin 0.085 H (0.030-0.080) ng/mL Urine Color (Yellow) Urine Appearance (Clear) Urine pH (4.6-8.0) Ur Specific [place] (1.005-1.030) Urine Protein (Negative) Urine Glucose (UA) (Negative) mg/dL Urine Ketones (Negative) Urine Blood (Negative) Urine Nitrite (Negative) Urine Bilirubin (Negative) Urine Urobilinogen (0.2) mg/dL Ur Leukocyte Esterase (Negative) U Hyaline Cast (Auto) (0-2) /LPF Urine Microscopic RBC (0-5) /HPF Urine Microscopic WBC (0-5) /HPF Ur Epithelial Cells (None Seen) /HPF Urine Bacteria (None Seen) /HPF Urine Culture Reflexed (NO) Monoscreen (NEGATIVE) Influenza Type A Ag (NEGATIVE) Influenza Type B Ag (NEGATIVE) RSV (PCR) (NEGATIVE) SARS-CoV-2 (PCR) (NEGATIVE) 01/30/25 01/30/25 01/30/25 Range/Units 11:44 11:44 11:44 WBC (4.23-9.07) x10^3/uL RBC (4.63-6.08) x10^6/uL Hgb (13.7-17.5) g/dL Hct (40.1-51.0) % MCV (79.0-92.2) fL MCH (25.7-32.2) pg MCHC (32.3-36.5) g/dL RDW (11.6-14.4) % Plt Count (163-337) x10^3/uL MPV (9.4-12.4) fL Gran % (34.0-67.9) % Immature Gran % (Auto) (0.001-0.429) % Nucleat RBC Rel Count (0.00-0.2) % Eos # (Auto) (0.04-0.54) x10^3/uL Immature Gran # (Auto) (0.001-0.031) x10^3u/L Absolute Lymphs (auto) (1.32-3.57) x10^3/uL Absolute Monos (auto) (0.30-0.82) x10^3/uL Absolute Nucleated RBC (0.00-0.012) x10^3u/L Lymphocytes % (21.8-53.1) % Monocytes % (5.3-12.2) % Eosinophils % (0.8-7.0) % Basophils % (0.2-1.2) % Absolute Granulocytes (1.78-5.38) x10^3/uL Basophils # (0.01-0.08) x10^3/uL Sodium (135-145) mmol/L Potassium (3.5-5.1) mmol/L Chloride (98-107) mmol/L Carbon Dioxide (22-30) mmol/L Anion Gap (5-15) MEQ/L BUN (9-20) mg/dL Creatinine (0.66-1.25) mg/dL Estimated GFR ML/MIN Glucose (74-106) mg/dL POC Glucometer (74 to 106) mg/dL Hemoglobin A1c (4.5-6.0) % Lactic Acid (0.4-2.0) Calcium (8.4-10.2) mg/dL Magnesium (1.6-2.3) mg/dL Total Bilirubin (0.2-1.3) mg/dL AST (17-59) U/L ALT (0-50) U/L Alkaline Phosphatase (38-126) U/L Troponin I < 0.012 (0.000-0.033) ng/mL NT-Pro-B Natriuret Pep (<300) pg/mL Serum Total Protein (6.3-8.2) g/dL Albumin (3.5-5.0) g/dL Procalcitonin (0.030-0.080) ng/mL Urine Color (Yellow) Urine Appearance (Clear) Urine pH (4.6-8.0) Ur Specific [place] (1.005-1.030) Urine Protein (Negative) Urine Glucose (UA) (Negative) mg/dL Urine Ketones (Negative) Urine Blood (Negative) Urine Nitrite (Negative) Urine Bilirubin (Negative) Urine Urobilinogen (0.2) mg/dL Ur Leukocyte Esterase (Negative) U Hyaline Cast (Auto) (0-2) /LPF Urine Microscopic RBC (0-5) /HPF Urine Microscopic WBC (0-5) /HPF Ur Epithelial Cells (None Seen) /HPF Urine Bacteria (None Seen) /HPF Urine Culture Reflexed (NO) Monoscreen NEGATIVE (NEGATIVE) Influenza Type A Ag NEGATIVE (NEGATIVE) Influenza Type B Ag NEGATIVE (NEGATIVE) RSV (PCR) NEGATIVE (NEGATIVE) SARS-CoV-2 (PCR) NEGATIVE (NEGATIVE) 01/30/25 01/30/25 01/30/25 Range/Units 12:40 15:00 15:05 WBC (4.23-9.07) x10^3/uL RBC (4.63-6.08) x10^6/uL Hgb (13.7-17.5) g/dL Hct (40.1-51.0) % MCV (79.0-92.2) fL MCH (25.7-32.2) pg MCHC (32.3-36.5) g/dL RDW (11.6-14.4) % Plt Count (163-337) x10^3/uL MPV (9.4-12.4) fL Gran % (34.0-67.9) % Immature Gran % (Auto) (0.001-0.429) % Nucleat RBC Rel Count (0.00-0.2) % Eos # (Auto) (0.04-0.54) x10^3/uL Immature Gran # (Auto) (0.001-0.031) x10^3u/L Absolute Lymphs (auto) (1.32-3.57) x10^3/uL Absolute Monos (auto) (0.30-0.82) x10^3/uL Absolute Nucleated RBC (0.00-0.012) x10^3u/L Lymphocytes % (21.8-53.1) % Monocytes % (5.3-12.2) % Eosinophils % (0.8-7.0) % Basophils % (0.2-1.2) % Absolute Granulocytes (1.78-5.38) x10^3/uL Basophils # (0.01-0.08) x10^3/uL Sodium (135-145) mmol/L Potassium (3.5-5.1) mmol/L Chloride (98-107) mmol/L Carbon Dioxide (22-30) mmol/L Anion Gap (5-15) MEQ/L BUN (9-20) mg/dL Creatinine (0.66-1.25) mg/dL Estimated GFR ML/MIN Glucose (74-106) mg/dL POC Glucometer (74 to 106) mg/dL Hemoglobin A1c (4.5-6.0) % Lactic Acid 3.1 H (0.4-2.0) Calcium (8.4-10.2) mg/dL Magnesium (1.6-2.3) mg/dL Total Bilirubin (0.2-1.3) mg/dL AST (17-59) U/L ALT (0-50) U/L Alkaline Phosphatase (38-126) U/L Troponin I < 0.012 (0.000-0.033) ng/mL NT-Pro-B Natriuret Pep (<300) pg/mL Serum Total Protein (6.3-8.2) g/dL Albumin (3.5-5.0) g/dL Procalcitonin (0.030-0.080) ng/mL Urine Color Yellow (Yellow) Urine Appearance Clear (Clear) Urine pH 6.0 (4.6-8.0) Ur Specific [place] 1.025 (1.005-1.030) Urine Protein 100 A (Negative) Urine Glucose (UA) 250 A (Negative) mg/dL Urine Ketones 15 A (Negative) Urine Blood Negative (Negative) Urine Nitrite Negative (Negative) Urine Bilirubin Negative (Negative) Urine Urobilinogen 1.0 A (0.2) mg/dL Ur Leukocyte Esterase Negative (Negative) U Hyaline Cast (Auto) NONE SEEN (0-2) /LPF Urine Microscopic RBC 0-2 (0-5) /HPF Urine Microscopic WBC 0-2 (0-5) /HPF Ur Epithelial Cells None Seen (None Seen) /HPF Urine Bacteria None Seen (None Seen) /HPF Urine Culture Reflexed ORDERED SEPARATELY (NO) Monoscreen (NEGATIVE) Influenza Type A Ag (NEGATIVE) Influenza Type B Ag (NEGATIVE) RSV (PCR) (NEGATIVE) SARS-CoV-2 (PCR) (NEGATIVE) 01/30/25 01/30/25 01/30/25 Range/Units 17:12 19:25 22:06 WBC (4.23-9.07) x10^3/uL RBC (4.63-6.08) x10^6/uL Hgb (13.7-17.5) g/dL Hct (40.1-51.0) % MCV (79.0-92.2) fL MCH (25.7-32.2) pg MCHC (32.3-36.5) g/dL RDW (11.6-14.4) % Plt Count (163-337) x10^3/uL MPV (9.4-12.4) fL Gran % (34.0-67.9) % Immature Gran % (Auto) (0.001-0.429) % Nucleat RBC Rel Count (0.00-0.2) % Eos # (Auto) (0.04-0.54) x10^3/uL Immature Gran # (Auto) (0.001-0.031) x10^3u/L Absolute Lymphs (auto) (1.32-3.57) x10^3/uL Absolute Monos (auto) (0.30-0.82) x10^3/uL Absolute Nucleated RBC (0.00-0.012) x10^3u/L Lymphocytes % (21.8-53.1) % Monocytes % (5.3-12.2) % Eosinophils % (0.8-7.0) % Basophils % (0.2-1.2) % Absolute Granulocytes (1.78-5.38) x10^3/uL Basophils # (0.01-0.08) x10^3/uL Sodium (135-145) mmol/L Potassium (3.5-5.1) mmol/L Chloride (98-107) mmol/L Carbon Dioxide (22-30) mmol/L Anion Gap (5-15) MEQ/L BUN (9-20) mg/dL Creatinine (0.66-1.25) mg/dL Estimated GFR ML/MIN Glucose (74-106) mg/dL POC Glucometer 197 H 186 H (74 to 106) mg/dL Hemoglobin A1c (4.5-6.0) % Lactic Acid (0.4-2.0) Calcium (8.4-10.2) mg/dL Magnesium (1.6-2.3) mg/dL Total Bilirubin (0.2-1.3) mg/dL AST (17-59) U/L ALT (0-50) U/L Alkaline Phosphatase (38-126) U/L Troponin I < 0.012 (0.000-0.033) ng/mL NT-Pro-B Natriuret Pep (<300) pg/mL Serum Total Protein (6.3-8.2) g/dL Albumin (3.5-5.0) g/dL Procalcitonin (0.030-0.080) ng/mL Urine Color (Yellow) Urine Appearance (Clear) Urine pH (4.6-8.0) Ur Specific [place] (1.005-1.030) Urine Protein (Negative) Urine Glucose (UA) (Negative) mg/dL Urine Ketones (Negative) Urine Blood (Negative) Urine Nitrite (Negative) Urine Bilirubin (Negative) Urine Urobilinogen (0.2) mg/dL Ur Leukocyte Esterase (Negative) U Hyaline Cast (Auto) (0-2) /LPF Urine Microscopic RBC (0-5) /HPF Urine Microscopic WBC (0-5) /HPF Ur Epithelial Cells (None Seen) /HPF Urine Bacteria (None Seen) /HPF Urine Culture Reflexed (NO) Monoscreen (NEGATIVE) Influenza Type A Ag (NEGATIVE) Influenza Type B Ag (NEGATIVE) RSV (PCR) (NEGATIVE) SARS-CoV-2 (PCR) (NEGATIVE) 01/31/25 01/31/25 01/31/25 Range/Units 04:00 04:15 04:15 WBC 8.0 (4.23-9.07) x10^3/uL RBC 2.81 L (4.63-6.08) x10^6/uL Hgb 9.9 L (13.7-17.5) g/dL Hct 30.8 L (40.1-51.0) % MCV 109.6 H (79.0-92.2) fL MCH 35.2 H (25.7-32.2) pg MCHC 32.1 L (32.3-36.5) g/dL RDW 15.3 H (11.6-14.4) % Plt Count 412 H (163-337) x10^3/uL MPV 9.5 (9.4-12.4) fL Gran % 73.4 H (34.0-67.9) % Immature Gran % (Auto) 0.7 H (0.001-0.429) % Nucleat RBC Rel Count 0.0 (0.00-0.2) % Eos # (Auto) 0.15 (0.04-0.54) x10^3/uL Immature Gran # (Auto) 0.06 H (0.001-0.031) x10^3u/L Absolute Lymphs (auto) 1.05 L (1.32-3.57) x10^3/uL Absolute Monos (auto) 0.80 (0.30-0.82) x10^3/uL Absolute Nucleated RBC 0.00 (0.00-0.012) x10^3u/L Lymphocytes % 13.1 L (21.8-53.1) % Monocytes % 10.0 (5.3-12.2) % Eosinophils % 1.9 (0.8-7.0) % Basophils % 0.9 (0.2-1.2) % Absolute Granulocytes 5.90 H (1.78-5.38) x10^3/uL Basophils # 0.07 (0.01-0.08) x10^3/uL Sodium 133 L (135-145) mmol/L Potassium 3.9 (3.5-5.1) mmol/L Chloride 102 (98-107) mmol/L Carbon Dioxide 23 (22-30) mmol/L Anion Gap 12.4 (5-15) MEQ/L BUN 24 H (9-20) mg/dL Creatinine 0.97 (0.66-1.25) mg/dL Estimated GFR 79.4 ML/MIN Glucose 168 H (74-106) mg/dL POC Glucometer (74 to 106) mg/dL Hemoglobin A1c (4.5-6.0) % Lactic Acid 0.9 (0.4-2.0) Calcium 8.8 (8.4-10.2) mg/dL Magnesium (1.6-2.3) mg/dL Total Bilirubin 0.40 (0.2-1.3) mg/dL AST 53 (17-59) U/L ALT 17 (0-50) U/L Alkaline Phosphatase 77 (38-126) U/L Troponin I (0.000-0.033) ng/mL NT-Pro-B Natriuret Pep 1220 (<300) pg/mL Serum Total Protein 6.5 (6.3-8.2) g/dL Albumin 3.2 L (3.5-5.0) g/dL Procalcitonin (0.030-0.080) ng/mL Urine Color (Yellow) Urine Appearance (Clear) Urine pH (4.6-8.0) Ur Specific [place] (1.005-1.030) Urine Protein (Negative) Urine Glucose (UA) (Negative) mg/dL Urine Ketones (Negative) Urine Blood (Negative) Urine Nitrite (Negative) Urine Bilirubin (Negative) Urine Urobilinogen (0.2) mg/dL Ur Leukocyte Esterase (Negative) U Hyaline Cast (Auto) (0-2) /LPF Urine Microscopic RBC (0-5) /HPF Urine Microscopic WBC (0-5) /HPF Ur Epithelial Cells (None Seen) /HPF Urine Bacteria (None Seen) /HPF Urine Culture Reflexed (NO) Monoscreen (NEGATIVE) Influenza Type A Ag (NEGATIVE) Influenza Type B Ag (NEGATIVE) RSV (PCR) (NEGATIVE) SARS-CoV-2 (PCR) (NEGATIVE) 01/31/25 01/31/25 01/31/25 Range/Units 04:15 04:15 07:12 WBC (4.23-9.07) x10^3/uL RBC (4.63-6.08) x10^6/uL Hgb (13.7-17.5) g/dL Hct (40.1-51.0) % MCV (79.0-92.2) fL MCH (25.7-32.2) pg MCHC (32.3-36.5) g/dL RDW (11.6-14.4) % Plt Count (163-337) x10^3/uL MPV (9.4-12.4) fL Gran % (34.0-67.9) % Immature Gran % (Auto) (0.001-0.429) % Nucleat RBC Rel Count (0.00-0.2) % Eos # (Auto) (0.04-0.54) x10^3/uL Immature Gran # (Auto) (0.001-0.031) x10^3u/L Absolute Lymphs (auto) (1.32-3.57) x10^3/uL Absolute Monos (auto) (0.30-0.82) x10^3/uL Absolute Nucleated RBC (0.00-0.012) x10^3u/L Lymphocytes % (21.8-53.1) % Monocytes % (5.3-12.2) % Eosinophils % (0.8-7.0) % Basophils % (0.2-1.2) % Absolute Granulocytes (1.78-5.38) x10^3/uL Basophils # (0.01-0.08) x10^3/uL Sodium (135-145) mmol/L Potassium (3.5-5.1) mmol/L Chloride (98-107) mmol/L Carbon Dioxide (22-30) mmol/L Anion Gap (5-15) MEQ/L BUN (9-20) mg/dL Creatinine (0.66-1.25) mg/dL Estimated GFR ML/MIN Glucose (74-106) mg/dL POC Glucometer 177 H (74 to 106) mg/dL Hemoglobin A1c 6.66 H (4.5-6.0) % Lactic Acid (0.4-2.0) Calcium (8.4-10.2) mg/dL Magnesium 1.7 (1.6-2.3) mg/dL Total Bilirubin (0.2-1.3) mg/dL AST (17-59) U/L ALT (0-50) U/L Alkaline Phosphatase (38-126) U/L Troponin I (0.000-0.033) ng/mL NT-Pro-B Natriuret Pep (<300) pg/mL Serum Total Protein (6.3-8.2) g/dL Albumin (3.5-5.0) g/dL Procalcitonin (0.030-0.080) ng/mL Urine Color (Yellow) Urine Appearance (Clear) Urine pH (4.6-8.0) Ur Specific [place] (1.005-1.030) Urine Protein (Negative) Urine Glucose (UA) (Negative) mg/dL Urine Ketones (Negative) Urine Blood (Negative) Urine Nitrite (Negative) Urine Bilirubin (Negative) Urine Urobilinogen (0.2) mg/dL Ur Leukocyte Esterase (Negative) U Hyaline Cast (Auto) (0-2) /LPF Urine Microscopic RBC (0-5) /HPF Urine Microscopic WBC (0-5) /HPF Ur Epithelial Cells (None Seen) /HPF Urine Bacteria (None Seen) /HPF Urine Culture Reflexed (NO) Monoscreen (NEGATIVE) Influenza Type A Ag (NEGATIVE) Influenza Type B Ag (NEGATIVE) RSV (PCR) (NEGATIVE) SARS-CoV-2 (PCR) (NEGATIVE) Radiology Exams: Radiology Procedures Category Date Time Status CHEST 1 VIEW (PORTABLE) Stat Exams 01/30/25 11:17 Completed FOOT (MINIMUM 3 VIEWS) Stat Exams 01/30/25 12:07 Completed FOOT (MINIMUM 3 VIEWS) Stat Exams 01/30/25 12:08 Completed VENOUS BILATERAL EXTREMITY [US] Urgent Exams 01/31/25 09:00 Ordered Multi-Disciplinary Progress Notes: Multi-Disciplinary Progress Notes 01/30/25 19:33 Respiratory Note by Renata Stover SpO2 87-88% on room air. No respiratory distress noted. BBS fine crackles, instructed pt to cough. 2lpm applied at this time via nasal cannula. Will continue to monitor. Initialized on 01/30/25 19:33 - END OF NOTE Assessment/Plan (1) Diabetic foot ulcers Current Visit: Yes Status: Acute Code(s): E11.621 - TYPE 2 DIABETES MELLITUS WITH FOOT ULCER; L97.509 - NON-PRESSURE CHRONIC ULCER OTH PRT UNSP FOOT W UNSP SEVERITY (2) Lactic acidosis Current Visit: Yes Status: Acute Code(s): E87.20 - ACIDOSIS, UNSPECIFIED (3) Leukocytosis Current Visit: Yes Status: Acute Code(s): D72.829 - ELEVATED WHITE BLOOD CELL COUNT, UNSPECIFIED (4) Dehydration Current Visit: Yes Status: Acute Code(s): E86.0 - DEHYDRATION (5) Weakness Current Visit: Yes Status: Acute Code(s): R53.1 - WEAKNESS (6) BPH (benign prostatic hyperplasia) Current Visit: Yes Status: Chronic Qualifiers: Lower urinary tract symptom presence: symptoms absent Qualified Code(s): N40.0 - Benign prostatic hyperplasia without lower urinary tract symptoms Code(s): N40.0 - BENIGN PROSTATIC HYPERPLASIA WITHOUT LOWER URINRY TRACT SYMP (7) HTN (hypertension) Current Visit: Yes Status: Chronic Qualifiers: Hypertension type: secondary to endocrine disorders Qualified Code(s): I15.2 - Hypertension secondary to endocrine disorders Code(s): I10 - ESSENTIAL (PRIMARY) HYPERTENSION (8) Type II diabetes mellitus Current Visit: Yes Status: Chronic Qualifiers: Diabetes mellitus fpc insulin use: without intermediate teacher use Diabetes mellitus complication status: with circulatory complication Diabetes mellitus complication detail: with peripheral angiopathy without gangrene Qualified Code(s): E11.51 - Type 2 diabetes mellitus with diabetic peripheral angiopathy without gangrene (9) Hyperlipidemia Current Visit: Yes Status: Chronic Qualifiers: Hyperlipidemia type: unspecified Qualified Code(s): E78.5 - Hyperlipidemia, unspecified Code(s): E78.5 - HYPERLIPIDEMIA, UNSPECIFIED (10) CHF (congestive heart failure) Current Visit: No Status: Chronic Qualifiers: Heart failure chronicity: chronic Code(s): I50.9 - HEART FAILURE, UNSPECIFIED (11) Venous insufficiency of both lower extremities Current Visit: Yes Status: Chronic Assessment & Plan: (1) Diabetic foot ulcers Current Visit: Yes Status: Acute Assessment & Plan: - Podiatry consulted in ER- note reviewed and agree with plan of care - Wound and BC x2 completed in ER - Clindamycin started in ER - Continue - Added Levaquin daily IV - Radiology results reviewed - Probiotic - venous duplex - CBC, CMP reviewed Code(s): E11.621 - TYPE 2 DIABETES MELLITUS WITH FOOT ULCER; L97.509 - NON-P RESSURE CHRONIC ULCER OTH PRT UNSP FOOT W UNSP SEVERITY (2) Lactic acidosis Current Visit: Yes Status: Acute Assessment & Plan: - LA 2.6- trend - IV fluids gave in ER- cont - 2:2 Diabetic foot wounds - repeat 3.1- trend - Pt has a hx of CHF and metformin use- IVF being given- will recheck in AM - hold metformin 01/31 - resolved Code(s): E87.20 - ACIDOSIS, UNSPECIFIED (3) Leukocytosis Current Visit: Yes Status: Acute Assessment & Plan: - WBC 9.3- trend - 2:2 Diabetic foot wounds 01/31 -resolved Code(s): D72.829 - ELEVATED WHITE BLOOD CELL COUNT, UNSPECIFIED (4) Dehydration Current Visit: Yes Status: Acute Assessment & Plan: - anion gap 16.2 - IVF 01/31 - resolved Code(s): E86.0 - DEHYDRATION (5) Weakness Current Visit: Yes Status: Acute Assessment & Plan: - PT eval and treat Code(s): R53.1 - WEAKNESS (6) BPH (benign prostatic hyperplasia) Current Visit: Yes Status: Chronic Qualifiers: Lower urinary tract symptom presence: symptoms absent Qualified Code(s): N40.0 - Benign prostatic hyperplasia without lower urinary tract symptoms Assessment & Plan: - Continue flomax Code(s): N40.0 - BENIGN PROSTATIC HYPERPLASIA WITHOUT LOWER URINRY TRACT SYMP (7) HTN (hypertension) Current Visit: Yes Status: Chronic Qualifiers: Hypertension type: secondary to endocrine disorders Qualified Code(s): I15.2 - Hypertension secondary to endocrine disorders Assessment & Plan: - BP stable continue home meds Code(s): I10 - ESSENTIAL (PRIMARY) HYPERTENSION (8) Type II diabetes mellitus Current Visit: Yes Status: Chronic Qualifiers: Diabetes mellitus fpc insulin use: without intermediate teacher use Diabetes mellitus complication status: with circulatory complication Diabetes mellitus complication detail: with peripheral angiopathy without gangrene Qualified Code(s): E11.51 - Type 2 diabetes mellitus with diabetic peripheral angiopathy without gangrene Assessment & Plan: - accuchecks ac/hs - humalog s/s - A1C 6.6- controlled (9) Hyperlipidemia Current Visit: Yes Status: Chronic Qualifiers: Hyperlipidemia type: unspecified Qualified Code(s): E78.5 - Hyperlipidemia, unspecified Assessment & Plan: - Continue statin Code(s): E78.5 - HYPERLIPIDEMIA, UNSPECIFIED (10) CHF (congestive heart failure) Current Visit: No Status: Chronic Qualifiers: Heart failure chronicity: chronic Assessment & Plan: - CXR does not shows acute concern - + edema - BNP 1220 - Start lasix 20mg IV daily Code(s): I50.9 - HEART FAILURE, UNSPECIFIED (11) Venous insufficiency of both lower extremities Current Visit: Yes Status: Chronic Assessment & Plan: - Adds to complexity VTE:SCD's PPI: Protonix Next of KIN: D/C plan: 1-2 days Code status: Full Code(s): I87.2 - VENOUS INSUFFICIENCY (CHRONIC) (PERIPHERAL) Code(s): I87.2 - VENOUS INSUFFICIENCY (CHRONIC) (PERIPHERAL)
[2025-01-31] MEDS: Protonix 20MG Tablet PO SCH (10:39)
[2025-01-31] MEDS: VITAMIN D PO SCH (10:39)
[2025-01-31] MEDS: Acidophilus TABLET PO SCH (10:39)
[2025-01-31] MEDS: Zestril 20 MG PO SCH (10:39)
[2025-01-31] MEDS: ECOTRIN 81 MG PO SCH (10:39)
[2025-01-31] MEDS: Vitamin B-12 500 MCG PO SCH (10:39)
[2025-01-31] MEDS: FOLATE 1 MG PO SCH (10:39)
[2025-01-31] MEDS: Lasix 20 MG/2 ML IV SCH (10:45)
--- NOTE | 2025-01-31 12:28 | XRAY ---
Indication: Swelling. Cellulitis. Two-dimensional sonogram and color Doppler imaging major venous vessels left and right leg performed. Comparison: None Both lower legs/calves not evaluated due to overlying bandage. Right leg demonstrates occluding thrombi throughout the deep femoral and femoral veins. No thrombus in the remaining visualized common femoral, popliteal, and greater saphenous veins. Left leg negative for thrombus in the visualized common femoral, deep femoral, femoral, popliteal, and greater saphenous veins. Impression: 1. Both lower legs/calves not evaluated. 2. Right leg occluding DVT as detailed. 3. Left leg negative for DVT.
[2025-01-31 12:40] VITALS: O2SAT 90
[2025-01-31 12:49] VITALS: BP 138/61; PULSE 85; RESP 22; TEMP 97.9
--- NOTE | 2025-01-31 12:58 | XRAY ---
Indication: Left facial droop. Stroke. Multiple contiguous images obtained through the head without contrast. Comparison: None Age-appropriate global atrophy, moderate periventricular degenerative micro-ischemia bilaterally, old bilateral occipital lobe infarcts left greater than right, and small old infarct inferior left cerebellum. Right basal ganglia demonstrates 3.2 x 1.3 x 2.6 cm focus of acute parenchymal hemorrhage with 4 mm of midline shift. Fourth ventricle is midline without hydrocephalus. Bony calvarium intact. Mild mucosal thickening right maxillary sinus with fluid leveling. Mastoid air cells are clear. Impression: 1. Acute parenchymal hemorrhage right basal ganglia with minimal midline shifting. 2. Chronic findings including atrophy and degenerative micro-ischemia. Also bilateral occipital lobe and left cerebellum remote infarcts. 3. Incidental paranasal sinus disease. Comment: Telephone report was given to ordering clinician, Arminda Young at 1252 hrs. on January 31, 2025.
--- NOTE | 2025-01-31 13:55 | PCM.DS ---
Discharge Summary Date of Admission: 01/31/25 11:45 Date of Discharge: 01/31/25 Admitting Physician: LAMONTE SINGH MD Consults: Consults on Case 01/30/25 11:31 Consult Podiatry ROUTINE 01/30/25 15:35 Consult Podiatry ROUTINE 01/31/25 12:55 Consult Neurology ROUTINE Primary Care Provider: [facility] Allergies Allergies amoxicillin [From Augmentin] Adverse Reaction (Verified 01/30/25 11:18) Rash Beta-Blockers (Beta-Adrenergic Bloc Adverse Reaction (Verified 11/18/24 11:36) clavulanic acid [From Augmentin] Adverse Reaction (Verified 01/30/25 11:18) Rash hydrochlorothiazide Adverse Reaction (Verified 01/30/25 11:18) Swelling Hospital Summary - Hospital Course Hospital Course: 01/30/25 is a 79 year old male patient of Dr. Dolan, who is also a MA patient, was brought to the emergency department by paramedics due to weakness. He was transported from home and denied chest pain or shortness of breath. His medical history includes diabetes, hypertension, prostate issues, hyperlipidemia, chronic anemia, peripheral neuropathy, and a past stroke. His symptoms have w orsened over the past few days. X-rays of the right foot revealed osteopenia with degenerative changes and soft tissue swelling, but no acute abnormalities compared to a previous study from 11/18/2024. The left foot x-ray also showed osteopenia, degenerative changes, and soft tissue swelling, with no prior films for comparison. Laboratory results indicated slight leukocytosis with a left shift, mildly elevated procalcitonin, and elevated lactic acid. The patient was evaluated by a bell attendant in the emergency department, and wound and blood cultures were obtained. He was started on clindamycin, and podiatry to consider bedside debridement IP. Coordination with the [facility] was initiated for observation placement at [facility]. 01/31/25 Pt resting in bed. He is to have a venous duplex today. IVF stopped as anion gap OK. WBC WNL. Podiatry consulted for wounds of BL feet. Continue IV antibiotics. Wound cultures and blood cultures x2 pending. Temp of 99.5 last night. Pt to eval for weakness and home needs. Pt denies any further concerns at this time. At 12:10 nurse came to me to explain that pt was leaning to the left side and had left facial droop. CT head ordered stat for stroke protocol. Neuro exam completed in person and pt did have significant left facial drooping that was not there this AM and left sided weakness. Neuro consulted stat after CT head revealed: Acute parenchymal hemorrhage right basal ganglia with minimal midline shifting. Chronic findings including atrophy and degenerative micro-ischemia. Also bilateral occipital lobe and left cerebellum remote infarcts. Incidental paranasal sinus disease. Neurology recommended transfer to neuro ICU for monitoring, PT/INR, BP control systolic 130-150. He would like a repeat head CT in 6-12 hours if still at this facility. Discussed findings with pt . She would [facility] to [place] [facility]. [facility] and they explained pt is too complex for care and would not accept transfer. - Vitals & Intake/Output Vital Signs: Vital Signs Temperature 97.9 F 01/31/25 12:00 Pulse Rate 85 01/31/25 12:00 Respiratory Rate 22 01/31/25 12:00 Blood Pressure 138/61 01/31/25 12:00 O2 Sat by Pulse Oximetry 90 L 01/31/25 12:36 Intake & Output: Intake & Output 01/29/25 01/30/25 01/31/25 02/01/25 11:59 11:59 11:59 11:59 Intake Total 2026 Balance 2026 Weight 90.5 kg 90.2 kg - Lab Result Diagrams: 01/31/25 04:15 01/31/25 04:15 Lab Results-Last 24 Hrs: Lab Results-Last 24 Hours 01/30/25 01/30/25 01/30/25 Range/Units 15:00 15:05 17:12 WBC (4.23-9.07) x10^3/uL RBC (4.63-6.08) x10^6/uL Hgb (13.7-17.5) g/dL Hct (40.1-51.0) % MCV (79.0-92.2) fL MCH (25.7-32.2) pg MCHC (32.3-36.5) g/dL RDW (11.6-14.4) % Plt Count (163-337) x10^3/uL MPV (9.4-12.4) fL Gran % (34.0-67.9) % Immature Gran % (Auto) (0.001-0.429) % Nucleat RBC Rel Count (0.00-0.2) % Eos # (Auto) (0.04-0.54) x10^3/uL Immature Gran # (Auto) (0.001-0.031) x10^3u/L Absolute Lymphs (auto) (1.32-3.57) x10^3/uL Absolute Monos (auto) (0.30-0.82) x10^3/uL Absolute Nucleated RBC (0.00-0.012) x10^3u/L Lymphocytes % (21.8-53.1) % Monocytes % (5.3-12.2) % Eosinophils % (0.8-7.0) % Basophils % (0.2-1.2) % Absolute Granulocytes (1.78-5.38) x10^3/uL Basophils # (0.01-0.08) x10^3/uL Sodium (135-145) mmol/L Potassium (3.5-5.1) mmol/L Chloride (98-107) mmol/L Carbon Dioxide (22-30) mmol/L Anion Gap (5-15) MEQ/L BUN (9-20) mg/dL Creatinine (0.66-1.25) mg/dL Estimated GFR ML/MIN Glucose (74-106) mg/dL POC Glucometer 197 H (74 to 106) mg/dL Hemoglobin A1c (4.5-6.0) % Lactic Acid 3.1 H (0.4-2.0) Calcium (8.4-10.2) mg/dL Magnesium (1.6-2.3) mg/dL Total Bilirubin (0.2-1.3) mg/dL AST (17-59) U/L ALT (0-50) U/L Alkaline Phosphatase (38-126) U/L Troponin I < 0.012 (0.000-0.033) ng/mL NT-Pro-B Natriuret Pep (<300) pg/mL Serum Total Protein (6.3-8.2) g/dL Albumin (3.5-5.0) g/dL 01/30/25 01/30/25 01/31/25 Range/Units 19:25 22:06 04:00 WBC (4.23-9.07) x10^3/uL RBC (4.63-6.08) x10^6/uL Hgb (13.7-17.5) g/dL Hct (40.1-51.0) % MCV (79.0-92.2) fL MCH (25.7-32.2) pg MCHC (32.3-36.5) g/dL RDW (11.6-14.4) % Plt Count (163-337) x10^3/uL MPV (9.4-12.4) fL Gran % (34.0-67.9) % Immature Gran % (Auto) (0.001-0.429) % Nucleat RBC Rel Count (0.00-0.2) % Eos # (Auto) (0.04-0.54) x10^3/uL Immature Gran # (Auto) (0.001-0.031) x10^3u/L Absolute Lymphs (auto) (1.32-3.57) x10^3/uL Absolute Monos (auto) (0.30-0.82) x10^3/uL Absolute Nucleated RBC (0.00-0.012) x10^3u/L Lymphocytes % (21.8-53.1) % Monocytes % (5.3-12.2) % Eosinophils % (0.8-7.0) % Basophils % (0.2-1.2) % Absolute Granulocytes (1.78-5.38) x10^3/uL Basophils # (0.01-0.08) x10^3/uL Sodium (135-145) mmol/L Potassium (3.5-5.1) mmol/L Chloride (98-107) mmol/L Carbon Dioxide (22-30) mmol/L Anion Gap (5-15) MEQ/L BUN (9-20) mg/dL Creatinine (0.66-1.25) mg/dL Estimated GFR ML/MIN Glucose (74-106) mg/dL POC Glucometer 186 H (74 to 106) mg/dL Hemoglobin A1c (4.5-6.0) % Lactic Acid 0.9 (0.4-2.0) Calcium (8.4-10.2) mg/dL Magnesium (1.6-2.3) mg/dL Total Bilirubin (0.2-1.3) mg/dL AST (17-59) U/L ALT (0-50) U/L Alkaline Phosphatase (38-126) U/L Troponin I < 0.012 (0.000-0.033) ng/mL NT-Pro-B Natriuret Pep (<300) pg/mL Serum Total Protein (6.3-8.2) g/dL Albumin (3.5-5.0) g/dL 01/31/25 01/31/25 01/31/25 Range/Units 04:15 04:15 04:15 WBC 8.0 (4.23-9.07) x10^3/uL RBC 2.81 L (4.63-6.08) x10^6/uL Hgb 9.9 L (13.7-17.5) g/dL Hct 30.8 L (40.1-51.0) % MCV 109.6 H (79.0-92.2) fL MCH 35.2 H (25.7-32.2) pg MCHC 32.1 L (32.3-36.5) g/dL RDW 15.3 H (11.6-14.4) % Plt Count 412 H (163-337) x10^3/uL MPV 9.5 (9.4-12.4) fL Gran % 73.4 H (34.0-67.9) % Immature Gran % (Auto) 0.7 H (0.001-0.429) % Nucleat RBC Rel Count 0.0 (0.00-0.2) % Eos # (Auto) 0.15 (0.04-0.54) x10^3/uL Immature Gran # (Auto) 0.06 H (0.001-0.031) x10^3u/L Absolute Lymphs (auto) 1.05 L (1.32-3.57) x10^3/uL Absolute Monos (auto) 0.80 (0.30-0.82) x10^3/uL Absolute Nucleated RBC 0.00 (0.00-0.012) x10^3u/L Lymphocytes % 13.1 L (21.8-53.1) % Monocytes % 10.0 (5.3-12.2) % Eosinophils % 1.9 (0.8-7.0) % Basophils % 0.9 (0.2-1.2) % Absolute Granulocytes 5.90 H (1.78-5.38) x10^3/uL Basophils # 0.07 (0.01-0.08) x10^3/uL Sodium 133 L (135-145) mmol/L Potassium 3.9 (3.5-5.1) mmol/L Chloride 102 (98-107) mmol/L Carbon Dioxide 23 (22-30) mmol/L Anion Gap 12.4 (5-15) MEQ/L BUN 24 H (9-20) mg/dL Creatinine 0.97 (0.66-1.25) mg/dL Estimated GFR 79.4 ML/MIN Glucose 168 H (74-106) mg/dL POC Glucometer (74 to 106) mg/dL Hemoglobin A1c (4.5-6.0) % Lactic Acid (0.4-2.0) Calcium 8.8 (8.4-10.2) mg/dL Magnesium 1.7 (1.6-2.3) mg/dL Total Bilirubin 0.40 (0.2-1.3) mg/dL AST 53 (17-59) U/L ALT 17 (0-50) U/L Alkaline Phosphatase 77 (38-126) U/L Troponin I (0.000-0.033) ng/mL NT-Pro-B Natriuret Pep 1220 (<300) pg/mL Serum Total Protein 6.5 (6.3-8.2) g/dL Albumin 3.2 L (3.5-5.0) g/dL 01/31/25 01/31/25 01/31/25 Range/Units 04:15 07:12 11:47 WBC (4.23-9.07) x10^3/uL RBC (4.63-6.08) x10^6/uL Hgb (13.7-17.5) g/dL Hct (40.1-51.0) % MCV (79.0-92.2) fL MCH (25.7-32.2) pg MCHC (32.3-36.5) g/dL RDW (11.6-14.4) % Plt Count (163-337) x10^3/uL MPV (9.4-12.4) fL Gran % (34.0-67.9) % Immature Gran % (Auto) (0.001-0.429) % Nucleat RBC Rel Count (0.00-0.2) % Eos # (Auto) (0.04-0.54) x10^3/uL Immature Gran # (Auto) (0.001-0.031) x10^3u/L Absolute Lymphs (auto) (1.32-3.57) x10^3/uL Absolute Monos (auto) (0.30-0.82) x10^3/uL Absolute Nucleated RBC (0.00-0.012) x10^3u/L Lymphocytes % (21.8-53.1) % Monocytes % (5.3-12.2) % Eosinophils % (0.8-7.0) % Basophils % (0.2-1.2) % Absolute Granulocytes (1.78-5.38) x10^3/uL Basophils # (0.01-0.08) x10^3/uL Sodium (135-145) mmol/L Potassium (3.5-5.1) mmol/L Chloride (98-107) mmol/L Carbon Dioxide (22-30) mmol/L Anion Gap (5-15) MEQ/L BUN (9-20) mg/dL Creatinine (0.66-1.25) mg/dL Estimated GFR ML/MIN Glucose (74-106) mg/dL POC Glucometer 177 H 184 H (74 to 106) mg/dL Hemoglobin A1c 6.66 H (4.5-6.0) % Lactic Acid (0.4-2.0) Calcium (8.4-10.2) mg/dL Magnesium (1.6-2.3) mg/dL Total Bilirubin (0.2-1.3) mg/dL AST (17-59) U/L ALT (0-50) U/L Alkaline Phosphatase (38-126) U/L Troponin I (0.000-0.033) ng/mL NT-Pro-B Natriuret Pep (<300) pg/mL Serum Total Protein (6.3-8.2) g/dL Albumin (3.5-5.0) g/dL Micro Results-Entire Visit: Microbiology 01/30/25 12:40 Urine Culture - Preliminary Catherized NO GROWTH TO DATE Accuchecks Date 01/31/25 Date 01/31/25 - Radiology Exams Ordered Rad Exams-Entire Visit: Radiology Procedures Category Date Time Status CHEST 1 VIEW (PORTABLE) Stat Exams 01/30/25 11:17 Completed FOOT (MINIMUM 3 VIEWS) Stat Exams 01/30/25 12:07 Completed FOOT (MINIMUM 3 VIEWS) Stat Exams 01/30/25 12:08 Completed HEAD WITHOUT CONTRAST [CT] Routine Exams 01/31/25 12:10 Completed VENOUS BILATERAL EXTREMITY [US] Urgent Exams 01/31/25 09:00 Completed - Procedures and Test Procedures and Tests throughout Hospitalization: Therapy Orders & Screens 01/30/25 16:32 PT Eval & Treat ( Order) ONCE Reason for Eval:: weakness Diagnosis: weakness 01/30/25 19:33 Oxygen Nasal Cannula 2 lpm Comment: Diagnosis: weakness 01/31/25 12:14 ST Eval & Treat ( Order) .as ordered Comment: Physician Instructions: Reason For Exam: Evaluate: Yes: possible CVA Treat: Yes Reason for Eval: possible CVA with left sided facial drooping. Diagnosis: weakness Discharge Exam General Appearance: no apparent distress, alert Neurologic Exam: alert, oriented x 3, cooperative, normal mood/affect, nml cerebellar function, sensation nml, motor weakness (left arm), facial droop (left), No motor deficits Eye Exam: PERRL, EOMI, eyes nml inspection Ears, Nose, Throat Exam: normal ENT inspection, pharynx normal, moist mucous membranes Neck Exam: normal inspection, non-tender, supple, full range of motion Respiratory Exam: normal breath sounds, lungs clear, No respiratory distress Cardiovascular Exam: regular rate/rhythm, normal heart sounds Gastrointestinal/Abdomen Exam: soft, No tenderness, No mass Male Genitalia Exam: deferred Rectal Exam: deferred Back Exam: normal inspection, normal range of motion, No CVA tenderness, No vertebral tenderness Extremity Exam: normal inspection, normal range of motion Skin Exam: normal color, warm, dry Final Diagnosis/Problem List - Final Discharge Diagnosis/Problem (1) Diabetic foot ulcers Current Visit: Yes Status: Acute Code(s): E11.621 - TYPE 2 DIABETES MELLITUS WITH FOOT ULCER; L97.509 - NON-PRESSURE CHRONIC ULCER OTH PRT UNSP FOOT W UNSP SEVERITY (2) Lactic acidosis Current Visit: Yes Status: Acute Code(s): E87.20 - ACIDOSIS, UNSPECIFIED (3) Leukocytosis Current Visit: Yes Status: Acute Code(s): D72.829 - ELEVATED WHITE BLOOD CELL COUNT, UNSPECIFIED (4) Dehydration Current Visit: Yes Status: Acute Code(s): E86.0 - DEHYDRATION (5) Weakness Current Visit: Yes Status: Acute Code(s): R53.1 - WEAKNESS (6) BPH (benign prostatic hyperplasia) Current Visit: Yes Status: Chronic Code(s): N40.0 - BENIGN PROSTATIC HYPERPLASIA WITHOUT LOWER URINRY TRACT SYMP (7) HTN (hypertension) Current Visit: Yes Status: Chronic Code(s): I10 - ESSENTIAL (PRIMARY) H YPERTENSION (8) Type II diabetes mellitus Current Visit: Yes Status: Chronic (9) Hyperlipidemia Current Visit: Yes Status: Chronic Code(s): E78.5 - HYPERLIPIDEMIA, UNSPECIFIED (10) CHF (congestive heart failure) Current Visit: No Status: Chronic Code(s): I50.9 - HEART FAILURE, UNSPECIFIED (11) Venous insufficiency of both lower extremities Current Visit: Yes Status: Chronic Assessment & Plan: (1) Diabetic foot ulcers Current Visit: Yes Status: Acute Assessment & Plan: - Podiatry consulted in ER- note reviewed and agree with plan of care - Wound and BC x2 completed in ER - Clindamycin started in ER - Continue - Added Levaquin daily IV - Radiology results reviewed - Probiotic - venous duplex - CBC, CMP reviewed Code(s): E11.621 - TYPE 2 DIABETES MELLITUS WITH FOOT ULCER; L97.509 - NON- PRESSURE CHRONIC ULCER OTH PRT UNSP FOOT W UNSP SEVERITY (2) Lactic acidosis Current Visit: Yes Status: Acute Assessment & Plan: - LA 2.6- trend - IV fluids gave in ER- cont - 2:2 Diabetic foot wounds - repeat 3.1- trend - Pt has a hx of CHF and metformin use- IVF being given- will recheck in AM - hold metformin 01/31 - resolved Code(s): E87.20 - ACIDOSIS, UNSPECIFIED (3) Leukocytosis Current Visit: Yes Status: Acute Assessment & Plan: - WBC 9.3- trend - 2:2 Diabetic foot wounds 01/31 -resolved Code(s): D72.829 - ELEVATED WHITE BLOOD CELL COUNT, UNSPECIFIED (4) Dehydration Current Visit: Yes Status: Acute Assessment & Plan: - anion gap 16.2 - IVF 01/31 - resolved Code(s): E86.0 - DEHYDRATION (5) Weakness Current Visit: Yes Status: Acute Assessment & Plan: - PT eval and treat Code(s): R53.1 - WEAKNESS (6) BPH (benign prostatic hyperplasia) Current Visit: Yes Status: Chronic Qualifiers: Lower urinary tract symptom presence: symptoms absent Qualified Code(s): N40.0 - Benign prostatic hyperplasia without lower urinary tract symptoms Assessment & Plan: - Continue flomax Code(s): N40.0 - BENIGN PROSTATIC HYPERPLASIA WITHOUT LOWER URINRY TRACT SYMP (7) HTN (hypertension) Current Visit: Yes Status: Chronic Qualifiers: Hypertension type: secondary to endocrine disorders Qualified Code(s): I15.2 - Hypertension secondary to endocrine disorders Assessment & Plan: - BP stable continue home meds Code(s): I10 - ESSENTIAL (PRIMARY) HYPERTENSION (8) Type II diabetes mellitus Current Visit: Yes Status: Chronic Qualifiers: Diabetes mellitus terminal block assembler insulin use: without residential use Diabetes mellitus complication status: with circulatory complication Diabetes mellitus complication detail: with peripheral angiopathy without gangrene Qualified Code(s): E11.51 - Type 2 diabetes mellitus with diabetic peripheral angiopathy without gangrene Assessment & Plan: - accuchecks ac/hs - humalog s/s - A1C 6.6- controlled (9) Hyperlipidemia Current Visit: Yes Status: Chronic Qualifiers: Hyperlipidemia type: unspecified Qualified Code(s): E78.5 - Hyperlipidemia, unspecified Assessment & Plan: - Continue statin Code(s): E78.5 - HYPERLIPIDEMIA, UNSPECIFIED (10) CHF (congestive heart failure) Current Visit: No Status: Chronic Qualifiers: Heart failure chronicity: chronic Assessment & Plan: - CXR does not shows acute concern - + edema - BNP 1220 - Start lasix 20mg IV daily Code(s): I50.9 - HEART FAILURE, UNSPECIFIED (11) Venous insufficiency of both lower extremities Current Visit: Yes Status: Chronic Assessment & Plan: - Adds to complexity Code(s): I87.2 - VENOUS INSUFFICIENCY (CHRONIC) (PERIPHERAL) (12) CVA (cerebral vascular accident) Current Visit: Yes Status: Acute Assessment & Plan: - CT head: Age-appropriate global atrophy, moderate periventricular degenerative micro-ischemia bilaterally, old bilateral occipital lobe infarcts left greater than right, and small old infarct inferior left cerebellum. Right basal ganglia demonstrates 3.2 x 1.3 x 2.6 cm focus of acute parenchymal hemorrhage with 4 mm of midline shift. Fourth ventricle is midline without hydrocephalus. Bony calvarium intact. Mild mucosal thickening right maxillary sinus with fluid leveling. Mastoid air cells are clear. Impression: 1. Acute parenchymal hemorrhage right basal ganglia with minimal midline shifting. 2. Chronic findings including atrophy and degenerative micro-ischemia. Also bilateral occipital lobe and left cerebellum remote infarcts. 3. Incidental paranasal sinus disease. - Left sided weakness, left sided facial droop - Neuro eval- stat - Per neuro recs: PT/INR, Keep systolic BP 130-150, Transfer to neuro ICU, Repeat head CT in 6-12 hours if still at [place] Code(s): I63.9 - CEREBRAL INFARCTION, UNSPECIFIED - Discharge Discharge Date: 01/31/25 Disposition: XFER OTHER Condition: Fair Prescriptions: Continue Gabapentin [Neurontin ] 1,200 mg PO TID Metformin HCl 500 mg [Glucophage 500 MG] 1,000 mg PO BIDWM Tamsulosin HCl 0.4 mg [Flomax 0.4 MG] 2 cap PO HS Folic Acid 1 mg [Folate 1 mg] 1 mg PO DAILY Nutritional Supplement [Breakfast Essentials] 1 packet PO BID Lisinopril 20 mg [Zestril 20 MG] 1 tab PO DAILY Cyanocobalamin (Vitamin B-12) [Vitamin B-12] 1 tab PO DAILY Cholecalciferol (Vitamin D3) [Vitamin D] 5,000 units PO DAILY Atorvastatin Calcium 1 tab PO HS Aspirin EC 81 mg [Ecotrin 81 mg] 1 tab PO DAILY Hydroxyurea 1,000 mg PO Q48H Dorzolamide HCl/Timolol Maleat [Dorzolamide-Timolol Eye Drops] 1 drop OP BID Sennosides/Docusate Sodium [Docusate Sodium-Sennosides Tab] 17.2 mg PO DAILY PRN PRN Reason: Constipation Hydroxyurea 1,500 mg PO Q48H Follow up with: HOSPITAL,'S [Primary Care Provider] -
[2025-01-31 14:13] LABS: INR 1.15 (0.8-3.0); PROTIME 12.4 SECONDS (9.4-12.5)
--- NOTE | 2025-01-31 14:21 | PCM.NOTE ---
Date and Time: 01/31/25 1420 Subjective Assessment: doing well .transfer for Neuro ICU Physical Exam - Narrative Narrative Physical Exam: Podiatry Physical Exam Objective Data Vital Signs: Vital Signs - 24 hr Temp Pulse Resp BP BP Pulse Ox 01/31/25 12:36 90 L 01/31/25 12:00 97.9 F 85 22 138/61 96 01/31/25 07:35 97.8 F 97 H 20 145/78 92 L 01/31/25 04:00 97.9 F 92 H 18 131/56 93 L 01/30/25 23:35 98.6 F 88 16 115/55 94 L 01/30/25 19:34 99.5 F 120 H 16 126/60 93 L 01/30/25 16:00 97.5 F 106 H 17 166/70 91 L 01/30/25 15:00 112 H 16 129/63 95 01/30/25 14:30 110 H 20 150/59 94 L Pain Assessment - Last Documented Pain Intensity 0 Pain Scale Used 0-10 Pain Scale Intake and Output: Intake & Output 01/29/25 01/30/25 01/31/25 02/01/25 11:59 11:59 11:59 11:59 Intake Total 2026 Balance 2026 Weight 90.5 kg 90.2 kg Lab Results: Lab Results-Last 24 Hours 01/30/25 01/30/25 01/30/25 Range/Units 15:00 15:05 17:12 WBC (4.23-9.07) x10^3/uL RBC (4.63-6.08) x10^6/uL Hgb (13.7-17.5) g/dL Hct (40.1-51.0) % MCV (79.0-92.2) fL MCH (25.7-32.2) pg MCHC (32.3-36.5) g/dL RDW (11.6-14.4) % Plt Count (163-337) x10^3/uL MPV (9.4-12.4) fL Gran % (34.0-67.9) % Immature Gran % (Auto) (0.001-0.429) % Nucleat RBC Rel Count (0.00-0.2) % Eos # (Auto) (0.04-0.54) x10^3/uL Immature Gran # (Auto) (0.001-0.031) x10^3u/L Absolute Lymphs (auto) (1.32-3.57) x10^3/uL Absolute Monos (auto) (0.30-0.82) x10^3/uL Absolute Nucleated RBC (0.00-0.012) x10^3u/L Lymphocytes % (21.8-53.1) % Monocytes % (5.3-12.2) % Eosinophils % (0.8-7.0) % Basophils % (0.2-1.2) % Absolute Granulocytes (1.78-5.38) x10^3/uL Basophils # (0.01-0.08) x10^3/uL Sodium (135-145) mmol/L Potassium (3.5-5.1) mmol/L Chloride (98-107) mmol/L Carbon Dioxide (22-30) mmol/L Anion Gap (5-15) MEQ/L BUN (9-20) mg/dL Creatinine (0.66-1.25) mg/dL Estimated GFR ML/MIN Glucose (74-106) mg/dL POC Glucometer 197 H (74 to 106) mg/dL Hemoglobin A1c (4.5-6.0) % Lactic Acid 3.1 H (0.4-2.0) Calcium (8.4-10.2) mg/dL Magnesium (1.6-2.3) mg/dL Total Bilirubin (0.2-1.3) mg/dL AST (17-59) U/L ALT (0-50) U/L Alkaline Phosphatase (38-126) U/L Troponin I < 0.012 (0.000-0.033) ng/mL NT-Pro-B Natriuret Pep (<300) pg/mL Serum Total Protein (6.3-8.2) g/dL Albumin (3.5-5.0) g/dL 01/30/25 01/30/25 01/31/25 Range/Units 19:25 22:06 04:00 WBC (4.23-9.07) x10^3/uL RBC (4.63-6.08) x10^6/uL Hgb (13.7-17.5) g/dL Hct (40.1-51.0) % MCV (79.0-92.2) fL MCH (25.7-32.2) pg MCHC (32.3-36.5) g/dL RDW (11.6-14.4) % Plt Count (163-337) x10^3/uL MPV (9.4-12.4) fL Gran % (34.0-67.9) % Immature Gran % (Auto) (0.001-0.429) % Nucleat RBC Rel Count (0.00-0.2) % Eos # (Auto) (0.04-0.54) x10^3/uL Immature Gran # (Auto) (0.001-0.031) x10^3u/L Absolute Lymphs (auto) (1.32-3.57) x10^3/uL Absolute Monos (auto) (0.30-0.82) x10^3/uL Absolute Nucleated RBC (0.00-0.012) x10^3u/L Lymphocytes % (21.8-53.1) % Monocytes % (5.3-12.2) % Eosinophils % (0.8-7.0) % Basophils % (0.2-1.2) % Absolute Granulocytes (1.78-5.38) x10^3/uL Basophils # (0.01-0.08) x10^3/uL Sodium (135-145) mmol/L Potassium (3.5-5.1) mmol/L Chloride (98-107) mmol/L Carbon Dioxide (22-30) mmol/L Anion Gap (5-15) MEQ/L BUN (9-20) mg/dL Creatinine (0.66-1.25) mg/dL Estimated GFR ML/MIN Glucose (74-106) mg/dL POC Glucometer 186 H (74 to 106) mg/dL Hemoglobin A1c (4.5-6.0) % Lactic Acid 0.9 (0.4-2.0) Calcium (8.4-10.2) mg/dL Magnesium (1.6-2.3) mg/dL Total Bilirubin (0.2-1.3) mg/dL AST (17-59) U/L ALT (0-50) U/L Alkaline Phosphatase (38-126) U/L Troponin I < 0.012 (0.000-0.033) ng/mL NT-Pro-B Natriuret Pep (<300) pg/mL Serum Total Protein (6.3-8.2) g/dL Albumin (3.5-5.0) g/dL 01/31/25 01/31/25 01/31/25 Range/Units 04:15 04:15 04:15 WBC 8.0 (4.23-9.07) x10^3/uL RBC 2.81 L (4.63-6.08) x10^6/uL Hgb 9.9 L (13.7-17.5) g/dL Hct 30.8 L (40.1-51.0) % MCV 109.6 H (79.0-92.2) fL MCH 35.2 H (25.7-32.2) pg MCHC 32.1 L (32.3-36.5) g/dL RDW 15.3 H (11.6-14.4) % Plt Count 412 H (163-337) x10^3/uL MPV 9.5 (9.4-12.4) fL Gran % 73.4 H (34.0-67.9) % Immature Gran % (Auto) 0.7 H (0.001-0.429) % Nucleat RBC Rel Count 0.0 (0.00-0.2) % Eos # (Auto) 0.15 (0.04-0.54) x10^3/uL Immature Gran # (Auto) 0.06 H (0.001-0.031) x10^3u/L Absolute Lymphs (auto) 1.05 L (1.32-3.57) x10^3/uL Absolute Monos (auto) 0.80 (0.30-0.82) x10^3/uL Absolute Nucleated RBC 0.00 (0.00-0.012) x10^3u/L Lymphocytes % 13.1 L (21.8-53.1) % Monocytes % 10.0 (5.3-12.2) % Eosinophils % 1.9 (0.8-7.0) % Basophils % 0.9 (0.2-1.2) % Absolute Granulocytes 5.90 H (1.78-5.38) x10^3/uL Basophils # 0.07 (0.01-0.08) x10^3/uL Sodium 133 L (135-145) mmol/L Potassium 3.9 (3.5-5.1) mmol/L Chloride 102 (98-107) mmol/L Carbon Dioxide 23 (22-30) mmol/L Anion Gap 12.4 (5-15) MEQ/L BUN 24 H (9-20) mg/dL Creatinine 0.97 (0.66-1.25) mg/dL Estimated GFR 79.4 ML/MIN Glucose 168 H (74-106) mg/dL POC Glucometer (74 to 106) mg/dL Hemoglobin A1c (4.5-6.0) % Lactic Acid (0.4-2.0) Calcium 8.8 (8.4-10.2) mg/dL Magnesium 1.7 (1.6-2.3) mg/dL Total Bilirubin 0.40 (0.2-1.3) mg/dL AST 53 (17-59) U/L ALT 17 (0-50) U/L Alkaline Phosphatase 77 (38-126) U/L Troponin I (0.000-0.033) ng/mL NT-Pro-B Natriuret Pep 1220 (<300) pg/mL Serum Total Protein 6.5 (6.3-8.2) g/dL Albumin 3.2 L (3.5-5.0) g/dL 01/31/25 01/31/25 01/31/25 Range/Units 04:15 07:12 11:47 WBC (4.23-9.07) x10^3/uL RBC (4.63-6.08) x10^6/uL Hgb (13.7-17.5) g/dL Hct (40.1-51.0) % MCV (79.0-92.2) fL MCH (25.7-32.2) pg MCHC (32.3-36.5) g/dL RDW (11.6-14.4) % Plt Count (163-337) x10^3/uL MPV (9.4-12.4) fL Gran % (34.0-67.9) % Immature Gran % (Auto) (0.001-0.429) % Nucleat RBC Rel Count (0.00-0.2) % Eos # (Auto) (0.04-0.54) x10^3/uL Immature Gran # (Auto) (0.001-0.031) x10^3u/L Absolute Lymphs (auto) (1.32-3.57) x10^3/uL Absolute Monos (auto) (0.30-0.82) x10^3/uL Absolute Nucleated RBC (0.00-0.012) x10^3u/L Lymphocytes % (21.8-53.1) % Monocytes % (5.3-12.2) % Eosinophils % (0.8-7.0) % Basophils % (0.2-1.2) % Absolute Granulocytes (1.78-5.38) x10^3/uL Basophils # (0.01-0.08) x10^3/uL Sodium (135-145) mmol/L Potassium (3.5-5.1) mmol/L Chloride (98-107) mmol/L Carbon Dioxide (22-30) mmol/L Anion Gap (5-15) MEQ/L BUN (9-20) mg/dL Creatinine (0.66-1.25) mg/dL Estimated GFR ML/MIN Glucose (74-106) mg/dL POC Glucometer 177 H 184 H (74 to 106) mg/dL Hemoglobin A1c 6.66 H (4.5-6.0) % Lactic Acid (0.4-2.0) Calcium (8.4-10.2) mg/dL Magnesium (1.6-2.3) mg/dL Total Bilirubin (0.2-1.3) mg/dL AST (17-59) U/L ALT (0-50) U/L Alkaline Phosphatase (38-126) U/L Troponin I (0.000-0.033) ng/mL NT-Pro-B Natriuret Pep (<300) pg/mL Serum Total Protein (6.3-8.2) g/dL Albumin (3.5-5.0) g/dL Radiology Exams: Radiology Procedures Category Date Time Status CHEST 1 VIEW (PORTABLE) Stat Exams 01/30/25 11:17 Completed FOOT (MINIMUM 3 VIEWS) Stat Exams 01/30/25 12:07 Completed FOOT (MINIMUM 3 VIEWS) Stat Exams 01/30/25 12:08 Completed HEAD WITHOUT CONTRAST [CT] Routine Exams 01/31/25 12:10 Completed VENOUS BILATERAL EXTREMITY [US] Urgent Exams 01/31/25 09:00 Completed Multi-Disciplinary Progress Notes: Multi-Disciplinary Progress Notes 01/31/25 11:45 (created 01/31/25 12:33) Case Management Note by Sharon Sanchez WHILE DOING CM ASSESSMENT, PHYSICAL THERAPY IN EVALUATING PATIENT. PATIENT'S HAS NOW ARRIVED WELL. SHE REPORTS HIS LEFT FACIAL DROOP IS WORSE THEN NORMAL. PATIENT ALSO UNABLE TO HOLD HIMSELF UP ON SIDE OF BED- LEANS HARD TO THE LEFT. PATIENT NORMALLY ABLE TO TRANSFER SELF TO AND FROM TOILET AT HOME BUT WAS TOTAL ASSIST WITH SIT TO STAND TO CHAIR. NOTES THIS IS THE WORSE PATIENT HAS EVER BEEN. EULALIO NOTIFIED- WILL ORDER CT OF HEAD Initialized on 01/31/25 12:33 - END OF NOTE 01/30/25 19:33 Respiratory Note by Renata Stover SpO2 87-88% on room air. No respiratory distress noted. BBS fine crackles, instructed pt to cough. 2lpm applied at this time via nasal cannula. Will continue to monitor. Initialized on 01/30/25 19:33 - END OF NOTE Assessment/Plan (1) Venous insufficiency of both lower extremities Current Visit: Yes Status: Chronic Assessment & Plan: Patient examination and evaluation Radiographs reviewed with moderate bone demineralization however no obvious indications of infection to level of bone. Patient with venous insufficiency and diabetic foot ulceration Will plan for bilateral compression therapy. Follow up outpatient if patient desires after discharge of from transfer. Code(s): I87.2 - VENOUS INSUFFICIENCY (CHRONIC) (PERIPHERAL) (2) Diabetic foot ulcers Current Visit: Yes Status: Acute Code(s): E11.621 - TYPE 2 DIABETES MELLITUS WITH FOOT ULCER; L97.509 - NON-PRESSURE CHRONIC ULCER OTH PRT UNSP FOOT W UNSP SEVERITY (3) Weakness Current Visit: Yes Status: Acute Code(s): R53.1 - WEAKNESS (4) Cellulitis of right foot Current Visit: No Status: Acute Code(s): L03.115 - CELLULITIS OF RIGHT LOWER LIMB (5) Generalized weakness Current Visit: No Status: Acute Code(s): R53.1 - WEAKNESS (6) Toe infection Current Visit: No Status: Acute Code(s): L08.9 - LOCAL INFECTION OF THE SKIN AND SUBCUTANEOUS TISSUE, UNSP
== END 2025-01-31 13:08 | DRG 637 ==
LOC: ED 10:58 → MED SURG 15:11 → ED 01-31 10:58 → OBSVTOIN 01-31 11:45 → MED SURG 01-31 15:11
PROVIDERS: ADMIT Internal Medicine; ATTEND Internal Medicine
DX: E11.621 Type 2 diabetes mellitus with foot ulcer (principal); I63.9 Cerebral infarction, unspecified; E87.20 Acidosis, unspecified; L03.115 Cellulitis of right lower limb; L97.509 Non-pressure chronic ulcer of other part of unspecified foot with unspecified severity; D72.829 Elevated white blood cell count, unspecified; E86.0 Dehydration; R53.1 Weakness; N40.0 Benign prostatic hyperplasia without lower urinary tract symptoms; E78.5 Hyperlipidemia, unspecified; I11.0 Hypertensive heart disease with heart failure; I50.9 Heart failure, unspecified; E11.51 Type 2 diabetes mellitus with diabetic peripheral angiopathy without gangrene; I87.2 Venous insufficiency (chronic) (peripheral); L08.9 Local infection of the skin and subcutaneous tissue, unspecified; D64.9 Anemia, unspecified; Z79.899 Other long term (current) drug therapy
CPT/HCPCS: 0241U; 36415; 70450; 71045; 73630; 80053; 81001; 82947; 83036; 83605; 83735; 83880; 84145; 84484; 85025; 85610; 86308; 87040; 87070; 87086; 93005; 93970; 94760; 99284; G0378; J1817; J1940; J1956; Q3014; A9270-GY; J3475